=== PATIENT | female | born 1975 | race Caucasian/White ===

== ENCOUNTER 2018-04-14 01:07 | Emergency (ER) | payer SELFPAY ==
[2018-04-14] MEDS ORDERED: IPRATROPIUM/ALBUTEROL 0.5-2.5 MG/3 ML AMPUL NEB ONE (01:37)
[2018-04-14 02:09] LABS: HEMATOCRIT 27.6 % (36.0-47.0); HEMOGLOBIN 8.2 g/dL (12.0-15.5); MEAN CORPUSCULAR HEMOGLOBIN 20.1 pg (27.0-33.4); MEAN CORPUSCULAR HGB CONC 29.7 g/dL (32.0-36.0); MEAN CORPUSCULAR VOLUME 68 fl (80-97); PLATELET COUNT 445 10^3/uL (150-450); RED BLOOD COUNT 4.07 10^6/uL (3.72-5.28)
[2018-04-14 02:21] LABS: INTERNATIONAL RATION (INR) 1.06; PROTHROMBIN TIME 14.3 SEC (11.4-15.4)
--- NOTE | 2018-04-14 02:30 | RADIOLOGY REPORT (SQ) ---
Clinical History : wheezing , Exam : Portable AP view of the chest 04/14/2018 1:36 AM CDT Comparisons : none Findings : The lung volumes are increased with flattening of the diaphragms. There is otherwise no focal consolidation or pleural effusion. The heart is normal in size. The mediastinal contours are distorted by patient rotation to the left . The thoracic spine is age appropriate. There is a chronic appearing left shoulder dislocation.. Limited evaluation of the upper abdomen demonstrates no gross abnormalities. Impression: 1. Increased lung volumes without overt edema or consolidation, may represent obstructive airways disease. 2. Chronic appearing left shoulder dislocation.
[2018-04-14 02:35] LABS: ALANINE AMINOTRANSFERASE 18 U/L (9-52); ALBUMIN 3.3 g/dL (3.5-5.0); ALKALINE PHOSPHATASE 101 U/L (38-126); ANION GAP 6 (5-19); ASPARTATE AMINO TRANSFERASE 16 U/L (14-36); BILIRUBIN,DIRECT 0.3 mg/dL (0.0-0.4); BILIRUBIN,TOTAL 0.3 mg/dL (0.2-1.3); BLOOD UREA NITROGEN 12 mg/dL (7-20); CALCIUM 8.9 mg/dL (8.4-10.2); CARBON DIOXIDE 27 mmol/L (22-30); CHLORIDE 111 mmol/L (98-107); GLUCOSE 86 mg/dL (75-110); LIPASE 93.4 U/L (23-300); POTASSIUM 4.4 mmol/L (3.6-5.0); SODIUM 144.3 mmol/L (137-145); TOTAL PROTEIN 7.8 g/dL (6.3-8.2)
[2018-04-14 02:54] LABS: ABSOLUTE MONOCYTES # (MANUAL) 0.1 10^3/uL (0.1-1.4); ABSOLUTE NEUTROPHILS# (MANUAL) 4.5 10^3/uL (1.7-8.2); BAND NEUTROPHILS % (MANUAL) 1 % (3-5); BASOPHILS % (MANUAL) 0 % (0-2); EOSINOPHILS % (MANUAL) 6 % (0-6); LYMPHOCYTES % (MANUAL) 17 % (13-45); MONOCYTES % (MANUAL) 2 % (3-13); SEGMENTED NEUTROPHILS % (MAN) 74 % (42-78); TOTAL CELLS COUNTED 100
[2018-04-14 02:55] LABS: ANISOCYTOSIS 2+
[2018-04-14 02:56] LABS: HYPOCHROMASIA 1+; OVALOCYTES 1+; PLATELET COMMENT ADEQUATE; POLYCHROMASIA SLIGHT; TEAR DROP CELLS SLIGHT
[2018-04-14] MEDS ORDERED: ALBUTEROL SULFATE HFA (90 MCG/PUFF) 8 GM MDI (1 MDI/ER DISP) IH ONE (03:30)
[2018-04-14] MEDS ORDERED: WARFARIN SODIUM 5 MG TABLET PO ONE (03:30)
[2018-04-14] MEDS ORDERED: ENOXAPARIN SODIUM INJ 100 MG/1 ML DISP.SYRIN SUBCUT ONE (03:32)
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
[2018-04-14 04:59] VITALS: BP 148/88
== END 2018-04-14 04:53 | disposition home or self-care (01) ==
LOC: ER 01:07
DX: J45.20 Mild intermittent asthma, uncomplicated (principal); S81.812A Laceration without foreign body, left lower leg, initial encounter; R10.11 Right upper quadrant pain; X58.XXXA Exposure to other specified factors, initial encounter; Y92.003 Bedroom of unspecified non-institutional (private) residence as the place of occurrence of the external cause; Z86.718 Personal history of other venous thrombosis and embolism; F17.200 Nicotine dependence, unspecified, uncomplicated; I10 Essential (primary) hypertension
CPT/HCPCS: 99284; 36415; 83690; 85025; 85610; 80053; 71045; J1650; J3490; J7620

== ENCOUNTER 2018-04-14 05:19 | Emergency (ER) | payer SELFPAY ==
[2018-04-14 05:31] VITALS: BP 161/96
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
== END 2018-04-14 07:15 | disposition home or self-care (01) ==
LOC: ER 05:19
DX: Z76.5 Malingerer [conscious simulation] (principal); M79.89 Other specified soft tissue disorders; I10 Essential (primary) hypertension; X37.0XXA Hurricane, initial encounter
CPT/HCPCS: 99283

== ENCOUNTER 2018-04-14 21:52 | Emergency (ER) | payer SELFPAY ==
[2018-04-15] MEDS ORDERED: DOXYCYCLINE HYCLATE 100 MG TABLET PO ONE (01:19)
[2018-04-15] MEDS ORDERED: GABAPENTIN 300 MG CAPSULE PO ONE (01:31)
[2018-04-15] MEDS ORDERED: LEVETIRACETAM 500 MG TABLET PO ONE (01:31)
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
[2018-04-15] MEDS ORDERED: WARFARIN SODIUM 5 MG TABLET PO ONE (11:14)
[2018-04-15] MEDS ORDERED: ALBUTEROL SULFATE 0.083% NEB 2.5 MG/3 ML AMPUL NEB PRN (11:25)
[2018-04-15] MEDS ORDERED: VENLAFAXINE HCL 75 MG TABLET PO SCH (11:30)
[2018-04-15] MEDS ORDERED: HYDROXYCHLOROQUINE SULFATE 200 MG TABLET PO SCH ×2 (11:30→13:00)
[2018-04-15] MEDS ORDERED: LEVETIRACETAM 500 MG TABLET PO SCH (11:30)
[2018-04-15] MEDS ORDERED: GABAPENTIN 300 MG CAPSULE PO SCH (11:30)
[2018-04-15] MEDS ORDERED: PREDNISONE 10 MG TABLET PO SCH (11:30)
[2018-04-15 16:14] VITALS: BP 157/98
[2018-04-15] MEDS ORDERED: ALBUTEROL SULFATE HFA (90 MCG/PUFF) 8 GM MDI (1 MDI/ER DISP) IH ONE (16:16)
[2018-04-15] MEDS ORDERED: LANSOPRAZOLE 30 MG TAB.RAP.DR PO SCH (17:00)
== END 2018-04-15 16:55 | disposition home or self-care (01) ==
LOC: ER 21:52
DX: S81.812D Laceration without foreign body, left lower leg, subsequent encounter (principal); M79.89 Other specified soft tissue disorders; X37.0XXD Hurricane, subsequent encounter; I10 Essential (primary) hypertension; Z86.718 Personal history of other venous thrombosis and embolism; Z79.01 Long term (current) use of anticoagulants
CPT/HCPCS: 94640; 99283; J3490 ×2; J7512

== ENCOUNTER 2018-04-15 19:13 | Emergency (ER) | payer SELFPAY ==
[2018-04-15 19:38] VITALS: BP 163/98
== END 2018-04-15 20:20 | disposition left against medical advice (07) ==
LOC: ER 19:13
DX: Z53.21 Procedure and treatment not carried out due to patient leaving prior to being seen by health care provider (principal)

== ENCOUNTER 2018-06-26 19:58 | Inpatient (IN) | payer MEDICAID ==
--- NOTE | 2018-06-26 21:07 | ER Document Report ---
ED General - General Chief Complaint: Abdominal Pain Stated Complaint: WOUND CHECK Time Seen by Provider: 06/26/18 20:26 Mode of Arrival: Medic Information source: Patient TRAVEL OUTSIDE OF THE [place] IN LAST 30 DAYS: No - HPI Patient complains to provider of: Leg pain Onset: Other - This is a 42-year-old wheelchair dependent post CVA as well as lupus patient presents for evaluation of pain and swelling as well as fevers in the left lower extremity. She notes that she had been treated for cellulitis in her left lower extremity previously with doxycycline and it had totally resolved 1 month prior but over the last 4 days she has had worsening fevers, chills, and drainage from the leg. Because of the continued pain and worsening fevers she called for help today. Nothing is seem to make it any better, nothing is seem to make it any worse. - Related Data Allergies/Adverse Reactions: No Known Allergies Allergy (Verified 04/14/18 22:08) Past Medical History - General Information source: Patient - Social History Smoking Status: Former Smoker Family History: None Patient has suicidal ideation: No Patient has homicidal ideation: No - Past Medical History Cardiac Medical History: Reports: Hx Hypertension Pulmonary Medical History: Reports: Hx Asthma Renal/ Medical History: Denies: Hx Peritoneal Dialysis Psychiatric Medical History: Reports: Hx Depression - Immunizations Immunizations up to date: Yes Hx Diphtheria, Pertussis, Tetanus Vaccination: Yes Review of Systems - Review of Systems -: Yes All other systems reviewed and negative Physical Exam - Vital signs Vitals: Temp Pulse BP Pulse Ox 99.5 F 108 H 138/88 H 98 06/26/18 20:17 06/26/18 20:17 06/26/18 20:17 06/26/18 20:17 - General General appearance: Alert, Anxious In distress: Moderate - HEENT Head: Other - Asymmetric bases left eye closed Eyes: Normal - Respiratory Respiratory status: No respiratory distress Chest status: Nontender Breath sounds: Normal Chest palpation: Normal - Cardiovascular Rhythm: Tachycardia Heart sounds: Normal auscultation Murmur: No - Abdominal Inspection: Normal Tenderness: Nontender - Back Back: Normal - Extremities General upper extremity: Normal inspection, Nontender, Normal color, Normal ROM , Normal temperature General lower extremity: Other - The left lower extremity is markedly erythematous just distal to the knee, there is profound swelling and erythema with multiple blisters and ulcerations the largest of which are approximately 6 cm in diameter. There is no appreciable crepitance there is fluctuance in the base of 2 of the larger ulcerated areas with profound tenderness to palpation - Neurological Neuro grossly intact: No - Baseline stroke deficits in the left side Cognition: Normal Orientation: AAOx4 Dorita Coma Scale Eye Opening: Spontaneous Dorita Coma Scale Verbal: Oriented [place] Coma Scale Motor: Obeys Commands [place] Coma Scale Total: 15 Speech: Normal Motor strength normal: RUE Sensory: Normal - Psychological Associated symptoms: Normal affect, Normal mood Course - Re-evaluation Re-evalutation: 06/26/18 21:24 42-year-old woman with large erythematous left lower extremity multiple ulcerations who is febrile and tachycardic. She is chronically ill woman who previously been treated for cellulitis in the outpatient setting with good response. She does appear to be systemically ill at this time febrile and tachycardic we will administer fluids broad-spectrum antibiotics. We will plan for x-rays lower extremity. We will plan for administration of Tylenol as well for fever. Discussion with the patient agreed that she is probably best served by inpatient management of her developing cellulitis, have contacted on-call hospitalist Dr. Colon who will see and evaluate the patient for admission. She currently does not have an outpatient provider. Do not believe that this time that she has a necrotizing infection which requires urgent or emergent surgical debridement. We will plan for continued monitoring in emergency department so she is appropriate evaluated and admitted by the hospitalist. - Vital Signs Vital signs: Temp Pulse Resp BP Pulse Ox 99.5 F 108 H 138/88 H 98 06/26/18 20:17 06/26/18 20:17 06/26/18 20:17 06/26/18 20:17 - Laboratory Result Diagrams: 06/26/18 21:38 06/26/18 21:38 Laboratory results interpreted by me: 06/26/18 06/26/18 06/26/18 21:38 21:38 22:55 Hgb 8.0 L Hct 27.3 L MCV 67 L MCH 19.8 L MCHC 29.5 L RDW 21.7 H Sodium 146.8 H Chloride 110 H Total Bilirubin 0.1 L AST 12 L Albumin 2.8 L Urine Protein 30 H Urine Blood SMALL H Discharge - Discharge Clinical Impression: Cellulitis Qualifiers: Site of cellulitis: unspecified site Qualified Code(s): L03.90 - Cellulitis, unspecified Leg wound, left Qualifiers: Encounter type: initial encounter Qualified Code(s): S81.802A - Unspecified open wound, left lower leg, initial encounter Condition: Stable Disposition: ADMITTED INPATIENT Admitting Provider: Hospitalist
[2018-06-26] MEDS ORDERED: ACETAMINOPHEN 325 MG TABLET PO ONE (21:08)
[2018-06-26] MEDS ORDERED: NORMAL SALINE 1000 ML 1,000 ML IV ONE (21:08)
[2018-06-26] MEDS ORDERED: PIPERACILLIN/TAZOBACTAM 4.5 GM VIAL IV ONE (21:08)
[2018-06-26] MEDS ORDERED: MORPHINE SULFATE 10 MG/ML INJ IV ONE (21:09)
[2018-06-26 21:54] LABS: ABSOLUTE BASOPHILS # (AUTO) 0.1 10^3/uL (0.0-0.2); ABSOLUTE EOSINOPHILS # (AUTO) 0.3 10^3/uL (0.0-0.6); ABSOLUTE LYMPHOCYTES (AUTO) 1.1 10^3/uL (0.5-4.7); ABSOLUTE MONOCYTES (AUTO) 0.5 10^3/uL (0.1-1.4); ABSOLUTE NEUT (AUTO) 5.5 10^3/uL (1.7-8.2); BASOPHILS % (AUTO) 0.8 % (0-2); EOSINOPHILS % (AUTO) 4.5 % (0-6); HEMATOCRIT 27.3 % (36.0-47.0); LYMPHOCYTES % (AUTO) 15.1 % (13-45); MEAN CORPUSCULAR HEMOGLOBIN 19.8 pg (27.0-33.4); MEAN CORPUSCULAR HGB CONC 29.5 g/dL (32.0-36.0); MEAN CORPUSCULAR VOLUME 67 fl (80-97); MONOCYTES % (AUTO) 6.4 % (3-13); PLATELET COUNT 359 10^3/uL (150-450); RED BLOOD COUNT 4.06 10^6/uL (3.72-5.28); RED CELL DISTRIBUTION WIDTH 21.7 % (11.5-14.0); SEGMENTED NEUTROPHILS % (AUTO) 73.2 % (42-78); TOTAL CELLS COUNTED % (AUTO) 100 %; WHITE BLOOD COUNT 7.5 10^3/uL (4.0-10.5)
[2018-06-26 22:15] LABS: ALANINE AMINOTRANSFERASE 9 U/L (9-52); ALBUMIN 2.8 g/dL (3.5-5.0); ALKALINE PHOSPHATASE 105 U/L (38-126); ANION GAP 10 (5-19); ASPARTATE AMINO TRANSFERASE 12 U/L (14-36); BILIRUBIN,DIRECT 0.1 mg/dL (0.0-0.4); BILIRUBIN,TOTAL 0.1 mg/dL (0.2-1.3); BLOOD UREA NITROGEN 9 mg/dL (7-20); CALCIUM 8.4 mg/dL (8.4-10.2); CARBON DIOXIDE 27 mmol/L (22-30); CHLORIDE 110 mmol/L (98-107); GLUCOSE 96 mg/dL (75-110); POTASSIUM 4.2 mmol/L (3.6-5.0); SODIUM 146.8 mmol/L (137-145); TOTAL PROTEIN 6.9 g/dL (6.3-8.2)
[2018-06-26 22:17] LABS: INTERNATIONAL RATION (INR) 1.05; PROTHROMBIN TIME 14.3 SEC (11.4-15.4)
[2018-06-26 22:28] LABS: VENOUS BLOOD HCO3 25.2 mmol/L (20-32); VENOUS BLOOD PCO2 43.5 mmHg (35-63); VENOUS BLOOD PH 7.38 (7.30-7.42)
--- NOTE | 2018-06-26 22:36 | RADIOLOGY REPORT (SQ) ---
EXAM DESCRIPTION: XR TIBIA FIBULA 2 VIEWS COMPLETED DATE/TME: 06/26/2018 21:09 CLINICAL HISTORY: 42 years, Female, concern for air in tissues COMPARISON: None. NUMBER OF VIEWS: 4 TECHNIQUE: 4 view left tibia fibula LIMITATIONS: None. FINDINGS: Osteopenia. Large area of soft tissue ulceration along the medial aspect of the distal leg. No underlying sinus tract formation or radiographic evidence for acute osteomyelitis. No other areas of soft tissue gas. Diffuse soft tissue swelling. IMPRESSION: Large soft tissue ulceration of the distal leg. Osteopenia. No acute osseous abnormality copyright 2010 [employer]- All Rights Reserved
[2018-06-26 23:16] LABS: APPEARANCE,URINE SLIGHTLY-CLOUDY; BILIRUBIN,URINE NEGATIVE (NEGATIVE); COLOR,URINE YELLOW; GLUCOSE, URINE NEGATIVE (NEGATIVE); KETONES,URINE NEGATIVE (NEGATIVE); LEUKOCYTE ESTERASE,URINE NEGATIVE (NEGATIVE); NITRITE,URINE NEGATIVE (NEGATIVE); PROTEIN,URINE 30 mg/dL (NEGATIVE); URINE SPECIFIC GRAVITY 1.026; UROBILINOGEN,URINE NEGATIVE mg/dL (<2.0)
--- NOTE | 2018-06-26 23:20 | RADIOLOGY REPORT (SQ) ---
EXAM DESCRIPTION: XR CHEST 1 VIEW COMPLETED DATE/TME: 06/26/2018 22:50 CLINICAL HISTORY: 42 years, Female, cough COMPARISON: Prior chest x-ray 04/14/2018.. NUMBER OF VIEWS: 1 TECHNIQUE: Frontal view the chest LIMITATIONS: None. FINDINGS: Heart size is normal. Mild atheromatous change thoracic aorta. Osteopenia. Deformity of the left shoulder, likely sequelae of old trauma with heterotopic bone formation and degenerative change. IMPRESSION: No acute cardiopulmonary process. copyright 2010 [employer]- All Rights Reserved
[2018-06-26] MEDS ORDERED: PROMETHAZINE HCL INJ 25 MG/1 ML VIAL IV PRN (23:31)
[2018-06-26] MEDS ORDERED: MAG HYDROX/AL HYDROX/SIMETH SUSP 30 ML UDCUP PO PRN (23:31)
[2018-06-26] MEDS ORDERED: VANCOMYCIN HCL 0 MG in DEXTROSE 5%-WATER 250 ML IV NR (23:45)
[2018-06-27] MEDS ORDERED: AMPICILLIN SOD/SULBACTAM 3 GM VIAL ONE ×2 (00:36→01:45)
[2018-06-27] MEDS: AMPICILLIN SODIUM/SULBACTAM NA 3 GM in NORMAL SALINE 100 ML IV SCH ×5 (00:56→23:08)
[2018-06-27] MEDS ORDERED: VANCOMYCIN HCL INJ 1000 MG VIAL IV PRN (01:03)
[2018-06-27] MEDS: OXYCODONE-ACETAMINOPHEN 5-325 MG TABLET PO PRN ×3 (01:27→19:36)
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
[2018-06-27] MEDS ORDERED: VANCOMYCIN HCL INJ 1000 MG VIAL ONE (01:45)
[2018-06-27] MEDS: ACETAMINOPHEN 325 MG TABLET PO PRN (02:23)
[2018-06-27] MEDS ORDERED: VANCOMYCIN HCL 1,750 MG in DEXTROSE 5%-WATER 500 ML IV ONE (02:30)
[2018-06-27] MEDS: KETOROLAC TROMETHAMINE INJ/PF 30 MG/1 ML SDV IV PRN ×2 (04:22→17:57)
[2018-06-27 04:45] LABS: ABSOLUTE BASOPHILS # (AUTO) 0.1 10^3/uL (0.0-0.2); ABSOLUTE EOSINOPHILS # (AUTO) 0.4 10^3/uL (0.0-0.6); ABSOLUTE LYMPHOCYTES (AUTO) 1.3 10^3/uL (0.5-4.7); ABSOLUTE MONOCYTES (AUTO) 0.5 10^3/uL (0.1-1.4); ABSOLUTE NEUT (AUTO) 3.5 10^3/uL (1.7-8.2); EOSINOPHILS % (AUTO) 6.8 % (0-6); HEMATOCRIT 23.2 % (36.0-47.0); LYMPHOCYTES % (AUTO) 23.1 % (13-45); MEAN CORPUSCULAR HEMOGLOBIN 19.7 pg (27.0-33.4); MEAN CORPUSCULAR HGB CONC 29.6 g/dL (32.0-36.0); MEAN CORPUSCULAR VOLUME 67 fl (80-97); MONOCYTES % (AUTO) 8.3 % (3-13); PLATELET COUNT 296 10^3/uL (150-450); RED BLOOD COUNT 3.48 10^6/uL (3.72-5.28); RED CELL DISTRIBUTION WIDTH 22.1 % (11.5-14.0); SEGMENTED NEUTROPHILS % (AUTO) 60.8 % (42-78); TOTAL CELLS COUNTED % (AUTO) 100 %; WHITE BLOOD COUNT 5.7 10^3/uL (4.0-10.5)
[2018-06-27 04:56] LABS: HEMOGLOBIN 6.9 g/dL (12.0-15.5)
[2018-06-27 05:09] LABS: URINE BARBITURATES SCREEN NEGATIVE; URINE BENZODIAZEPINES SCREEN NEGATIVE; URINE COCAINE SCREEN NEGATIVE; URINE MARIJUANA (THC) SCREEN NEGATIVE; URINE METHADONE SCREEN NEGATIVE; URINE PHENCYCLIDINE SCREEN NEGATIVE
[2018-06-27 05:22] LABS: ANION GAP 7 (5-19); BLOOD UREA NITROGEN 10 mg/dL (7-20); CALCIUM 7.9 mg/dL (8.4-10.2); CARBON DIOXIDE 24 mmol/L (22-30); CHLORIDE 114 mmol/L (98-107); GLUCOSE 91 mg/dL (75-110); POTASSIUM 4.3 mmol/L (3.6-5.0); SODIUM 145.1 mmol/L (137-145)
[2018-06-27 05:22] LABS: HEMATOCRIT 22.3 % (36.0-47.0); MEAN CORPUSCULAR HEMOGLOBIN 19.9 pg (27.0-33.4); MEAN CORPUSCULAR HGB CONC 30.2 g/dL (32.0-36.0); MEAN CORPUSCULAR VOLUME 66 fl (80-97); PLATELET COUNT 294 10^3/uL (150-450); RED BLOOD COUNT 3.37 10^6/uL (3.72-5.28); RED CELL DISTRIBUTION WIDTH 21.9 % (11.5-14.0); WHITE BLOOD COUNT 4.8 10^3/uL (4.0-10.5)
[2018-06-27 05:24] LABS: HEMOGLOBIN 6.7 g/dL (12.0-15.5)
[2018-06-27] MEDS ORDERED: HEPARIN SOD (PORCINE) 5,000 UNIT/ML 1 ML SYRINGE SUBCUT SCH (06:00)
[2018-06-27 07:21] LABS: URINE AMPHETAMINES SCREEN NEGATIVE
--- NOTE | 2018-06-27 07:41 | EKG REPORT ---
SEVERITY:- BORDERLINE ECG - SINUS TACHYCARDIA NONSPECIFIC ST-T CHANGES ANTERIOR LEADS : Confirmed by: Victor Manuel Joya MD 27-Jun-2018 07:40:32
[2018-06-27] MEDS: VANCOMYCIN HCL 1,000 MG in DEXTROSE 5%-WATER 250 ML IV SCH ×2 (10:05→20:16)
--- NOTE | 2018-06-27 12:16 | RADIOLOGY REPORT (SQ) ---
EXAM DESCRIPTION: VENOUS UNILATERAL LOWER COMPLETED DATE/TIME: 06/27/2018 11:58 am REASON FOR STUDY: LLE edema COMPARISON: None. TECHNIQUE: Dynamic and static armendariz scale and color images acquired of the left leg venous system. Se lected spectral images acquired with additional compression and augmentation maneuvers. The contralat eral common femoral vein and saphenofemoral junction were also imaged. Images stored on PACS. LIMITATIONS: None. FINDINGS: COMMON FEMORAL: Partially occlusive thrombus. FEMORAL: Occlusive thrombus. POPLITEAL: Normal compression, augmentation. No visualized echogenic material on armendariz scale. No defec ts on color images. CALF VESSELS: Normal compression, augmentation. No visualized echogenic material on armendariz scale. No de fects on color images. GSV and SSV: Normal compression, augmentation. No visualized echogenic material on armendariz scale. No def ects on color images. ANY DEEP VENOUS INSUFFICIENCY: No. ANY EVIDENCE OF POPLITEAL CYST: No. OTHER: No other significant finding. CONTRALATERAL COMMON FEMORAL VEIN AND SAPHENOFEMORAL JUNCTION: Normal phasicity, compression and augmentation. No visualized echogenic material on armendariz scale. No de fects on color images. IMPRESSION: DEEP VENOUS THROMBOSIS INVOLVING THE COMMON FEMORAL VEIN AND FEMORAL VEIN. COMMENT: Preliminary report was called by the technologist to the referring clinician's office at t he time of patient visit. TECHNICAL DOCUMENTATION: JOB ID: [id number] [employer]- All Rights Reserved Reading location - IP/workstation name: [facility]-[id number]
[2018-06-27] MEDS: ENOXAPARIN SODIUM INJ 100 MG/1 ML DISP.SYRIN SUBCUT SCH ×2 (12:31→21:37)
[2018-06-27] MEDS ORDERED: ACETAMINOPHEN 325 MG TABLET PO PRN (16:57)
[2018-06-27] MEDS ORDERED: NORMAL SALINE 250 ML IV PRN ×2 (16:57)
[2018-06-27] MEDS ORDERED: DIPHENHYDRAMINE HCL 25 MG CAPSULE PO PRN (16:57)
--- NOTE | 2018-06-27 19:42 | PROGRESS NOTE E ---
Progress Note NAME: GREG BOATENG : 1975 AGE: 42Y DATE: 06/27/2018 ROOM: 533 SUBJECTIVE: The patient was seen earlier today on rounds. The patient herself denies any nausea, vomiting, diarrhea. No shortness of breath, dizziness, chest pain. The patient states that the pain in her extremity has returned. I was notified that the patient's venous Doppler was positive. The patient denies any shortness of breath, dizziness, or chest pain. The patient has been afebrile, her blood pressure has been in a good range, and the patient does not voice any other concerns at this time. REVIEW OF SYSTEMS: The rest of the review of systems is negative. MEDICATIONS: Medications have been reviewed. OBJECTIVE: GENERAL: The patient is a 42-year-old female who is awake, alert, and oriented to person, place, time, and situation. She is verbal, conversational, does not appear to be in any acute distress. VITAL SIGNS: As follows: Temperature is 98.2, pulse 92, respirations 20, blood pressure 150/90, oxygen saturation is 98% on room air. SKIN: Warm and dry. No rash, not diaphoretic. HEENT: Pupils equal, round, and reactive to light and accommodation. Conjunctivae pink. No evidence of JVP. CARDIOVASCULAR: Heart is regular. There is no murmur or rub. CHEST: Clear, symmetrical, unlabored. ABDOMEN: Soft, nontender, nondistended. BACK: No CVA tenderness or sacral edema. EXTREMITIES: No clubbing or cyanosis. The patient's left lower extremity is very edematous with ulcerations that are open to air at this point. DIAGNOSTICS: Lab values are as follows. Hematology obtained on 06/27/2018: WBCs are 4.8, hemoglobin is 6.7, hematocrit is 22.3, platelet count is 294,000. Chemistry obtained on 06/27/2018: Sodium is 145, potassium is 4.3, chloride is 114, carbon dioxide 24, BUN 10, creatinine 0.64, glucose 91, calcium is 7.9. IMPRESSION AND PLAN: 1. LEFT LOWER EXTREMITY DVT. Will place the patient on Lovenox and follow. 2. LEFT LOWER EXTREMITY WOUNDS. The patient is to be seen and evaluated by Surgery. 3. CELLULITIS OF THE LEFT LOWER EXTREMITY. Continue antibiotic coverage. 4. SYSTEMIC LUPUS ERYTHEMATOSUS. The patient is on chronic prednisone. 5. CEREBROVASCULAR DISEASE. The patient does have a history of CVA. Will follow. 6. ANEMIA. Will type and cross and transfuse yet another unit of packed red blood cells given the patient only had mild improvement of her hemoglobin. DISPOSITION: THE PATIENT IS A FULL CODE. Pending the patient's symptomatology and diagnostic findings, will re-evaluate in the a.m. Time spent on this followup, including assessment/plan, physical examination, patient education, review of records, is 60 minutes. DICTATING PHYSICIAN: YOSEPH DARBY NP [id number] PHY#: [id number] ID: [id number] JOB#: [id number] ACCT: [id number] cc: >
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
[2018-06-28] MEDS: VANCOMYCIN HCL 1,000 MG in DEXTROSE 5%-WATER 250 ML IV SCH ×2 (02:26→10:22)
[2018-06-28 04:54] LABS: HEMATOCRIT 27.7 % (36.0-47.0); HEMOGLOBIN 8.6 g/dL (12.0-15.5); MEAN CORPUSCULAR HEMOGLOBIN 21.2 pg (27.0-33.4); MEAN CORPUSCULAR HGB CONC 30.9 g/dL (32.0-36.0); MEAN CORPUSCULAR VOLUME 69 fl (80-97); PLATELET COUNT 316 10^3/uL (150-450); RED BLOOD COUNT 4.04 10^6/uL (3.72-5.28); RED CELL DISTRIBUTION WIDTH 23.3 % (11.5-14.0); WHITE BLOOD COUNT 4.5 10^3/uL (4.0-10.5)
[2018-06-28 05:12] LABS: ANION GAP 9 (5-19); BLOOD UREA NITROGEN 13 mg/dL (7-20); CALCIUM 7.7 mg/dL (8.4-10.2); CARBON DIOXIDE 24 mmol/L (22-30); CHLORIDE 111 mmol/L (98-107); GLUCOSE 93 mg/dL (75-110); POTASSIUM 4.5 mmol/L (3.6-5.0)
[2018-06-28] MEDS: AMPICILLIN SODIUM/SULBACTAM NA 3 GM in NORMAL SALINE 100 ML IV SCH ×3 (05:55→17:54)
[2018-06-28] MEDS: OXYCODONE-ACETAMINOPHEN 5-325 MG TABLET PO PRN ×2 (08:04→21:10)
[2018-06-28] MEDS: ENOXAPARIN SODIUM INJ 100 MG/1 ML DISP.SYRIN SUBCUT SCH ×2 (10:22→21:09)
[2018-06-28 11:56] LABS: VANCOMYCIN,TROUGH 24.1 ug/mL (5.0-20.0)
[2018-06-28] MEDS: ACETAMINOPHEN 325 MG TABLET PO PRN (13:28)
--- NOTE | 2018-06-28 16:11 | PROGRESS NOTE E ---
Progress Note NAME: GREG BOATENG : 1975 AGE: 42Y DATE: 06/28/2018 ROOM: 533 SUBJECTIVE: The patient was seen earlier today on rounds. The patient stated that she was hungry. Otherwise, her pain appeared to be well controlled. The patient denied any nausea, vomiting. No diarrhea, shortness of breath, dizziness, or chest pain. The patient has been afebrile. Her blood pressures have been in a good range and the patient does not voice any specific concerns at this time. Apparently, the patient's sister was somewhat disruptive yesterday evening and was demanding to receive a phone call. I made 2 separate attempts to contact her; however, her voice mail is not set up on her phone. Therefore, I was unable to leave a message. REVIEW OF SYSTEMS: The rest of the review of systems is negative. MEDICATIONS: Medications have been reviewed. OBJECTIVE: GENERAL: The patient is a 42-year-old female who is awake and alert. She is oriented to person, place, time, and situation. She is verbal and conversational. Does not appear to be distressed. VITAL SIGNS: Temperature 98.6, pulse 100, respirations 18, blood pressure 158/101, oxygen saturation 98% on room air. SKIN: Warm, dry. She is not diaphoretic. HEENT: The patient's right pupil is reactive. No evidence of JVP. CVS: Heart is in sinus rhythm, no rub. CHEST: Clear, symmetrical, unlabored. ABDOMEN: Nondistended. EXTREMITIES: The patient's left lower extremity redness has receded, but still prominent post debridement. PSYCHIATRIC: Appropriate affect, pleasant mood. DIAGNOSTICS/LAB VALUES: Hematology obtained on 06/28/2018: WBC 4.5, hemoglobin 7.6, hematocrit 27.7, platelet count 316,000. Chemistry obtained on 06/28/2018: Sodium 144, potassium 4.5, chloride 111, carbon dioxide 24, BUN 13, creatinine 0.57. Glucose 93. Calcium 7.7. Magnesium 1.9. ASSESSMENT AND PLAN: 1. LEFT LOWER EXTREMITY DEEP VENOUS THROMBOSIS. This has been a recurrent issue for the patient. I have placed the patient on Lovenox and will follow. 2. LEFT LOWER EXTREMITY WOUND. The patient was seen and evaluated by Surgery. She is status post debridement. Cultures reveal gram-negative rods. 3. CELLULITIS OF THE LEFT LOWER EXTREMITY. Have discontinued vancomycin. Will continue Unasyn coverage. 4. SYSTEMIC LUPUS ERYTHEMATOSUS. Will continue chronic prednisone. 5. CEREBROVASCULAR DISEASE. Continue home medications. 6. ANEMIA MOST LIKELY OF UNDERLYING CHRONIC DISEASE. The patient has been transfused. Will monitor hemoglobin in the a.m. DISPOSITION: The patient is a full code. Depending on the patient's symptomatology and diagnostic findings, will reevaluate in the a.m. Time spent on this followup including assessment, plan, physical examination, patient education and review of records is 25 minutes. DICTATING PHYSICIAN: YOSEPH DARBY NP [id number] PHY#: [id number] ID: [id number] JOB#: [id number] ACCT: [id number] cc: >
[2018-06-28] MEDS: PROMETHAZINE HCL 25 MG TABLET PO PRN (21:11)
[2018-06-28] MEDS: TEMAZEPAM 15 MG CAPSULE PO PRN (21:11)
[2018-06-29] MEDS: AMPICILLIN SODIUM/SULBACTAM NA 3 GM in NORMAL SALINE 100 ML IV SCH ×2 (00:38→05:56)
[2018-06-29] MEDS: OXYCODONE-ACETAMINOPHEN 5-325 MG TABLET PO PRN ×3 (05:56→22:02)
--- NOTE | 2018-06-29 11:12 | PDOC CONSULTATION ---
Consultation Consult Date: 06/29/18 Attending physician:: VIK HODGES Consult reason:: Recurrent DVT in the setting of lupus History of Present Illness Admission Date/PCP: 06/26/18 23:51 Patient complains of: DVT History of Present Illness: GREG BOATENG is a 42 year old female with known history of recurrent DVT, she does have severe lupus, also has anemia. On this admission she was found to be both anemic as well as have a new left lower extremity DVT. She was previously on both warfarin as well as Lovenox in the past, unfortunately is uninsured so she has been taken off those medications in the past. She also has anemia, but has been transfused so we cannot do iron studies on this admission, she has never had iron studies done previously. Her MCV is low so it is possible that she does have some iron deficiency anemia but because of the lupus she most likely has anemia of inflammation. This would be her third DVT in the left lower extremity. Past Medical History Cardiac Medical History: Reports: DVT, Hypertension Pulmonary Medical History: Reports: Asthma Neurological Medical History: Reports: Ischemic CVA, Other - Left upper and lower extremity weakness Psychiatric Medical History: Reports: Depression Past Surgical History Past Surgical History: Reports: Appendectomy, Other - Left eye enucleation Social History Smoking Status: Former Smoker - Tells me that quitting smoking 1 month ago Frequency of Alcohol Use: None Hx Recreational Drug Use: No Drugs: None Hx Prescription Drug Abuse: No - Advance Directive Resuscitation Status: Full Code Family History Family History: None Parental Family History Reviewed: Yes Children Family History Reviewed: Yes Sibling(s) Family History Reviewed.: Yes Medication/Allergy Home Medications: No Home Medications 06/27/18 Allergies/Adverse Reactions: No Known Allergies Allergy (Verified 04/14/18 22:08) Review of Systems Constitutional: ABSENT: chills, fever(s), headache(s), weight gain, weight loss Eyes: ABSENT: visual disturbances Ears: ABSENT: hearing changes Cardiovascular: ABSENT: chest pain, dyspnea on exertion, edema, orthropnea, palpitations Respiratory: ABSENT: cough, hemoptysis Gastrointestinal: ABSENT: abdominal pain, constipation, diarrhea, hematemesis, hematochezia, nausea, vomiting Genitourinary: ABSENT: dysuria, hematuria Musculoskeletal: ABSENT: joint swelling Integumentary: ABSENT: rash, wounds Neurological: ABSENT: abnormal gait, abnormal speech, confusion, dizziness, focal weakness, syncope Psychiatric: ABSENT: anxiety, depression, homidical ideation, suicidal ideation Endocrine: ABSENT: cold intolerance, heat intolerance, polydipsia, polyuria Hematologic/Lymphatic: ABSENT: easy bleeding, easy bruising Physical Exam Vital Signs: Temp Pulse Resp BP Pulse Ox 97.8 F 98 18 158/102 H 99 06/28/18 23:16 06/28/18 23:16 06/28/18 23:16 06/28/18 23:16 06/28/18 23:16 Intake & Output 06/28/18 06/29/18 06/30/18 06:59 06:59 06:59 Intake Total 2614 1414 100 Output Total 2 Balance 2614 1412 100 Weight 88 kg 93.4 kg General appearance: PRESENT: no acute distress, well-developed, well-nourished Head exam: PRESENT: atraumatic, normocephalic Eye exam: PRESENT: conjunctiva pink, EOMI, PERRLA. ABSENT: scleral icterus Ear exam: PRESENT: normal external ear exam Mouth exam: PRESENT: moist, tongue midline Neck exam: ABSENT: carotid bruit, JVD, lymphadenopathy, thyromegaly Respiratory exam: PRESENT: clear to auscultation [place]. ABSENT: rales, rhonchi, wheezes Cardiovascular exam: PRESENT: RRR. ABSENT: diastolic murmur, rubs, systolic murmur Pulses: PRESENT: normal dorsalis pedis pul Vascular exam: PRESENT: normal capillary refill GI/Abdominal exam: PRESENT: normal bowel sounds, soft. ABSENT: distended, guarding, mass, organolmegaly, rebound, tenderness Rectal exam: PRESENT: deferred Extremities exam: PRESENT: full ROM. ABSENT: calf tenderness, clubbing, pedal edema Neurological exam: PRESENT: alert, awake, oriented to person, oriented to place , oriented to time, oriented to situation, CN II-XII grossly intact. ABSENT: motor sensory deficit Psychiatric exam: PRESENT: appropriate affect, normal mood. ABSENT: homicidal ideation, suicidal ideation Skin exam: PRESENT: dry, intact, warm. ABSENT: cyanosis, rash Results Laboratory Results: 06/28/18 03:45 06/28/18 03:45 Impressions: Tibia/Fibula X-Ray 06/26/18 21:09 IMPRESSION: Large soft tissue ulceration of the distal leg. Osteopenia. No acute osseous abnormality copyright 2010 [employer]- All Rights Reserved Chest X-Ray 06/26/18 22:50 IMPRESSION: No acute cardiopulmonary process. copyright 2010 [employer]- All Rights Reserved Venous Doppler Study 06/27/18 00:00 IMPRESSION: DEEP VENOUS THROMBOSIS INVOLVING THE COMMON FEMORAL VEIN AND FEMORAL VEIN. Assessment & Plan - Diagnosis (1) Left femoral vein DVT Qualifiers: Chronicity: acute Qualified Code(s): I82.412 - Acute embolism and thrombosis of left femoral vein Is this a current diagnosis for this admission?: Yes Plan: Left lower extremity DVT, recurrent, she needs lifelong anticoagulation. She has no insurance so she must be on 1 of the newer direct oral anticoagulants which do have good programs for patients to get free drug. We also have samples in our office. I would use Xarelto 15 mg twice daily for 21 days then 20 mg daily thereafter. Unfortunately her hemoglobin had dropped but I looked back at her labs from [place] [facility] and she had remained in the 8 range so a drop from 8-6.9 is not that severe. But it would be reasonable to do stool guaiac to make sure that there is no bleeding ongoing at this point. (2) Anemia, chronic disease Is this a current diagnosis for this admission?: Yes Plan: Probably anemia of chronic disease from lupus. Patient was transfused, and seems to be at baseline now. Would recommend stool guaiac to ensure that there is no positivity. If there is positive stool guaiac then she may benefit from endoscopy. - Time Time Spent: Greater than 70 Minutes - Inpatient Certification Based on my medical assessment, after consideration of the patient's comorbidities, presenting symptoms, or acuity I expect that the services needed warrant INPATIENT care.: Yes I certify that my determination is in accordance with my understanding of Medicare's requirements for reasonable and necessary INPATIENT services [42 CFR 412.3e].: Yes Medical Necessity: Risk of Complication if Not Cared For in Hospital
[2018-06-29] MEDS ORDERED: HYDROXYZINE HCL 10 MG TABLET PO ONE (12:00)
[2018-06-29] MEDS: ENOXAPARIN SODIUM INJ 100 MG/1 ML DISP.SYRIN SUBCUT SCH ×2 (12:28→22:03)
[2018-06-29] MEDS: CEFTAZIDIME PENTAHYDRATE 2 GM in DEXTROSE 5%-WATER 100 ML IV SCH ×2 (16:09→22:02)
--- NOTE | 2018-06-29 17:07 | PROGRESS NOTE E ---
Progress Note NAME: GREG BOATENG : 1975 AGE: 42Y DATE: 06/29/2018 ROOM: 533 SUBJECTIVE: The patient is lying in bed. She states that she is itching this morning. She describes herself intermittently to have itching fits, which she attributes to her lupus. The patient denies any nausea, vomiting, diarrhea. No shortness of breath, dizziness, chest pain. No fevers or chills. The patient has been afebrile, blood pressure has been in the a good range, and the patient did not voice any other concerns at this time. BRIEF HISTORY: The patient is a 42-year-old female with a past medical history of lupus and recent CVA about a month ago, resulting in left hemiparesis. The patient presented to the emergency department due to left lower extremity ulcerations. The patient appeared to have a significantly involved area of cellulitis of that leg as well. The patient was admitted. Dopplers were obtained and it appears the patient does have a reoccurring DVT of that left lower extremity and the patient has been covered with Lovenox. The patient has been receiving Unasyn as antibiotic coverage and has had significant improvement of symptoms. However, the patient's Gram-stain has returned pseudomonas, therefore, we will change the patient's coverage to Fortaz. The patient did have bedside debridement with surgery on 06/27/2018 and has been having wet to dry dressings and will give the patient Atarax for her itching and no other concerns are voiced at this time. REVIEW OF SYSTEMS: Rest of the review of systems negative. MEDICATIONS: Have been reviewed. OBJECTIVE: GENERAL: The patient is a 42-year-old female who is awake, alert, and oriented to person, time, place, situation. She is verbal, conversational. She does not appear to be in any acute distress. VITAL SIGNS: Temperature is 97.8, pulse 98, respirations 18, blood pressure is 158/102, oxygen saturation is 99% on room air. SKIN: Warm and dry. No rash. She is not diaphoretic. HEENT: There is no evidence of JVP. CARDIOVASCULAR: Heart is regular, no rub. CHEST: Clear, symmetrical, unlabored. ABDOMEN: Soft, nontender. EXTREMITIES: No clubbing, cyanosis. The patient's left lower extremity does have some chronic edema, redness has receded nicely though. Dressings in place. PSYCHIATRIC: Appropriate affect, pleasant mood. DIAGNOSTICS: Lab values are as follows - Hematology obtained on 06/28/2018; WBC is 4.5, hemoglobin 9.6, hematocrit is 27.7, platelet count is 316,000. Chemistry obtained on 06/28/2018; sodium is 144, potassium 4.5, chloride is 111, carbon dioxide 24, BUN 13, creatinine is 0.57, glucose 93, calcium 7.7, magnesium is 1.9. IMPRESSION AND PLAN: 1. LEFT LOWER EXTREMITY DVT. This has been a reoccurring issue for the patient. She is currently on Lovenox coverage. I am going to discuss this with hematology today to see what program is available for the patient for her chronic anticoagulation given her uninsured status. 2. LEFT LOWER EXTREMITY WOUND. The patient has been seen, evaluated, and debrided at the bedside by surgery. Her cultures reveal pseudomonas. Will transition her antibiotic coverage. 3. CELLULITIS OF THE LEFT LOWER EXTREMITY. Discontinue vancomycin in spite of coverage with Unasyn she is much improved. 4. SYSTEMIC LUPUS ERYTHEMATOSUS. Continue chronic prednisone. 5. CEREBROVASCULAR DISEASE. Continue the patient's home medication. 6. ANEMIA, MOST LIKELY OF UNDERLYING CHRONIC DISEASE. Will attempt to get records from [facility]. The patient has been transfused. Do appreciate hematology's help with this. CODE STATUS: The patient is a full code. DISPOSITION: Depending on the patient's symptomatology and diagnostic findings will reevaluate in the a.m. TIME SPENT: On this follow up, including assessment and plan, physical examination, patient education, specialty collaboration, review of records is 35 minutes. DICTATING PHYSICIAN: YOSEPH DARBY NP [id number] PHY#: [id number] ID: [id number] JOB#: [id number] ACCT: [id number] cc: >
[2018-06-29] MEDS ORDERED: BISACODYL 5 MG TABEC PO PRN (20:42)
[2018-06-29] MEDS: IPRATROPIUM/ALBUTEROL 0.5-2.5 MG/3 ML AMPUL NEB PRN (23:00)
[2018-06-30] MEDS: KETOROLAC TROMETHAMINE INJ/PF 30 MG/1 ML SDV IV PRN (00:53)
[2018-06-30] MEDS: TEMAZEPAM 15 MG CAPSULE PO PRN ×2 (00:53→21:20)
[2018-06-30] MEDS: CEFTAZIDIME PENTAHYDRATE 2 GM in DEXTROSE 5%-WATER 100 ML IV SCH ×3 (06:23→21:19)
[2018-06-30 07:14] LABS: HEMATOCRIT 25.7 % (36.0-47.0); MEAN CORPUSCULAR HEMOGLOBIN 21.2 pg (27.0-33.4); MEAN CORPUSCULAR HGB CONC 30.5 g/dL (32.0-36.0); MEAN CORPUSCULAR VOLUME 70 fl (80-97); PLATELET COUNT 363 10^3/uL (150-450); RED BLOOD COUNT 3.69 10^6/uL (3.72-5.28); RED CELL DISTRIBUTION WIDTH 23.9 % (11.5-14.0); WHITE BLOOD COUNT 3.8 10^3/uL (4.0-10.5)
[2018-06-30 07:17] LABS: HEMOGLOBIN 7.8 g/dL (12.0-15.5)
[2018-06-30 07:48] LABS: ANION GAP 7 (5-19); BLOOD UREA NITROGEN 13 mg/dL (7-20); CALCIUM 7.8 mg/dL (8.4-10.2); CARBON DIOXIDE 26 mmol/L (22-30); CHLORIDE 111 mmol/L (98-107); GLUCOSE 70 mg/dL (75-110); POTASSIUM 4.4 mmol/L (3.6-5.0); SODIUM 144.1 mmol/L (137-145)
[2018-06-30] MEDS: FUROSEMIDE 20 MG TABLET PO SCH (10:41)
[2018-06-30] MEDS: ENOXAPARIN SODIUM INJ 100 MG/1 ML DISP.SYRIN SUBCUT SCH ×2 (10:42→22:50)
--- NOTE | 2018-06-30 18:27 | PDOC PROGRESS REPORT ---
Subjective Progress Note for:: 06/30/18 Subjective:: No adverse events overnight. No new complaints. Blood pressures have remained a bit elevated. She has been afebrile. She has been eating and drinking without difficulty. Reason For Visit: LLE ULCERS Physical Exam Vital Signs: Temp Pulse Resp BP Pulse Ox 97.3 F 101 H 16 163/89 H 97 06/30/18 15:05 06/30/18 15:22 06/30/18 15:22 06/30/18 15:05 06/30/18 15:22 Intake & Output 06/29/18 06/30/18 07/01/18 06:59 06:59 06:59 Intake Total 1414 1138 2806 Output Total 2 1 550 Balance 1412 1137 2256 Weight 93.4 kg 95 kg General appearance: PRESENT: no acute distress, cooperative, disheveled, obese Head exam: PRESENT: other - Chronic left facial droop Eye exam: PRESENT: other - Her left seems permanently shut Respiratory exam: PRESENT: clear to auscultation [place], symmetrical, unlabored. ABSENT: chest wall tenderness, rales, rhonchi, tachypnea, wheezes Cardiovascular exam: PRESENT: RRR, +S1, +S2 Vascular exam: PRESENT: normal capillary refill GI/Abdominal exam: PRESENT: normal bowel sounds, soft. ABSENT: distended, guarding, rebound, tenderness Extremities exam: PRESENT: other - There is 2-3+ edema in the left lower extremity distal to the knee. There are multiple cratered wounds on the leg that have gauze adherent to the wound bed and surrounding erythema, 3 fairly large wound and what appears to be one smaller wound mostly on the superior lateral aspect of the left leg and on the anterior medial aspect as well. Her left arm is chronically contracted Musculoskeletal exam: PRESENT: deformity - As noted above Neurological exam: PRESENT: alert, awake, oriented to person, oriented to place , oriented to situation Psychiatric exam: PRESENT: appropriate affect, normal mood Skin exam: PRESENT: other - As noted above Results Laboratory Results: 06/30/18 06:15 06/30/18 06:15 06/30/18 06/30/18 06/30/18 06:15 06:15 08:45 WBC 3.8 L RBC 3.69 L Hgb 7.8 L Hct 25.7 L MCV 70 L MCH 21.2 L MCHC 30.5 L RDW 23.9 H Plt Count 363 Sodium 144.1 Potassium 4.4 Chloride 111 H Carbon Dioxide 26 Anion Gap 7 BUN 13 Creatinine 0.62 Est GFR ( Amer) > 60 Est GFR (Non-Af Amer) > 60 Glucose 70 L Calcium 7.8 L Magnesium 2.0 Blood Type O POSITIVE Antibody Screen NEGATIVE Impressions: Tibia/Fibula X-Ray 06/26/18 21:09 IMPRESSION: Large soft tissue ulceration of the distal leg. Osteopenia. No acute osseous abnormality copyright 2010 [employer]- All Rights Reserved Chest X-Ray 06/26/18 22:50 IMPRESSION: No acute cardiopulmonary process. copyright 2010 [employer]- All Rights Reserved Venous Doppler Study 06/27/18 00:00 IMPRESSION: DEEP VENOUS THROMBOSIS INVOLVING THE COMMON FEMORAL VEIN AND FEMORAL VEIN. Assessment & Plan - Diagnosis (1) Cellulitis Qualifiers: Site of cellulitis: extremity Site of cellulitis of extremity: lower extremity Laterality: left Qualified Code(s): L03.116 - Cellulitis of left lower limb Is this a current diagnosis for this admission?: Yes Plan: There is Pseudomonas in the wound. She is currently on Fortaz. It is pansensitive, so we may be able to transition her over to a fluoroquinolone when she shows some more clinical improvement. (2) Leg wound, left Qualifiers: Encounter type: initial encounter Qualified Code(s): S81.802A - Unspecified open wound, left lower leg, initial encounter Is this a current diagnosis for this admission?: Yes Plan: Patient most likely venous stasis wounds, possibly in the setting of a DVT with impaired venous return. Once the venous return has improved the pressure from the venous stasis should improve and the wound should heal better. (3) Left femoral vein DVT Qualifiers: Chronicity: acute Qualified Code(s): I82.412 - Acute embolism and thrombosis of left femoral vein Is this a current diagnosis for this admission?: Yes Plan: And looks like hematology is eventually planning on transitioning her over to Xarelto after attempting to get her set up on some sort of medication assistance plan. (4) SLE (systemic lupus erythematosus) Qualifiers: Systemic lupus erythematosus organ involvement: unspecified Is this a current diagnosis for this admission?: Yes Plan: On chronic daily steroids. This is going to impair wound healing. (5) History of CVA (cerebrovascular accident) Is this a current diagnosis for this admission?: Yes Plan: We will have discharge planning evaluate her situation to see if there is any sort of option available to her for placement, possibly long-term. - Time Time Spent with patient: 25-34 minutes
[2018-06-30] MEDS: IPRATROPIUM/ALBUTEROL 0.5-2.5 MG/3 ML AMPUL NEB PRN (20:50)
[2018-06-30] MEDS: OXYCODONE-ACETAMINOPHEN 5-325 MG TABLET PO PRN (21:19)
[2018-06-30] MEDS: HYDROXYZINE HCL 10 MG TABLET PO PRN (21:19)
[2018-07-01] MEDS: PROMETHAZINE HCL 25 MG TABLET PO PRN (02:14)
[2018-07-01] MEDS: ACETAMINOPHEN 325 MG TABLET PO PRN (02:15)
[2018-07-01 05:31] LABS: HEMATOCRIT 27.9 % (36.0-47.0); HEMOGLOBIN 8.6 g/dL (12.0-15.5); MEAN CORPUSCULAR HEMOGLOBIN 21.6 pg (27.0-33.4); MEAN CORPUSCULAR HGB CONC 30.7 g/dL (32.0-36.0); MEAN CORPUSCULAR VOLUME 70 fl (80-97); PLATELET COUNT 374 10^3/uL (150-450); RED BLOOD COUNT 3.97 10^6/uL (3.72-5.28); WHITE BLOOD COUNT 4.1 10^3/uL (4.0-10.5)
[2018-07-01] MEDS: OXYCODONE-ACETAMINOPHEN 5-325 MG TABLET PO PRN (05:56)
[2018-07-01] MEDS: CEFTAZIDIME PENTAHYDRATE 2 GM in DEXTROSE 5%-WATER 100 ML IV SCH ×3 (05:57→22:57)
[2018-07-01] MEDS: IPRATROPIUM/ALBUTEROL 0.5-2.5 MG/3 ML AMPUL NEB PRN ×2 (07:53→16:44)
--- NOTE | 2018-07-01 08:41 | PDOC PROGRESS REPORT ---
Subjective Progress Note for:: 07/01/18 Subjective:: No acute events overnight Reason For Visit: LLE ULCERS Physical Exam Vital Signs: Temp Pulse Resp BP Pulse Ox 98.1 F 93 20 136/81 H 99 07/01/18 08:00 07/01/18 08:00 07/01/18 08:00 07/01/18 08:00 07/01/18 08:00 Intake & Output 06/30/18 07/01/18 07/02/18 06:59 06:59 06:59 Intake Total 1138 3450 Output Total 1 550 Balance 1137 2900 Weight 95 kg 95.3 kg General appearance: PRESENT: no acute distress, well-developed, well-nourished Head exam: PRESENT: atraumatic, normocephalic Eye exam: PRESENT: conjunctiva pink, EOMI, PERRLA. ABSENT: scleral icterus Ear exam: PRESENT: normal external ear exam Mouth exam: PRESENT: moist, tongue midline Neck exam: ABSENT: carotid bruit, JVD, lymphadenopathy, thyromegaly Respiratory exam: PRESENT: clear to auscultation [place]. ABSENT: rales, rhonchi, wheezes Cardiovascular exam: PRESENT: RRR. ABSENT: diastolic murmur, rubs, systolic murmur Pulses: PRESENT: normal dorsalis pedis pul Vascular exam: PRESENT: normal capillary refill GI/Abdominal exam: PRESENT: normal bowel sounds, soft. ABSENT: distended, guarding, mass, organolmegaly, rebound, tenderness Rectal exam: PRESENT: deferred Extremities exam: PRESENT: full ROM. ABSENT: calf tenderness, clubbing, pedal edema Neurological exam: PRESENT: alert, awake, oriented to person, oriented to place , oriented to time, oriented to situation, CN II-XII grossly intact. ABSENT: motor sensory deficit Psychiatric exam: PRESENT: appropriate affect, normal mood. ABSENT: homicidal ideation, suicidal ideation Skin exam: PRESENT: dry, intact, warm. ABSENT: cyanosis, rash Results Laboratory Results: 07/01/18 04:32 06/30/18 06:15 06/30/18 07/01/18 08:45 04:32 WBC 4.1 RBC 3.97 Hgb 8.6 L Hct 27.9 L MCV 70 L MCH 21.6 L MCHC 30.7 L RDW 25.0 H Plt Count 374 Blood Type O POSITIVE Antibody Screen NEGATIVE Impressions: Tibia/Fibula X-Ray 06/26/18 21:09 IMPRESSION: Large soft tissue ulceration of the distal leg. Osteopenia. No acute osseous abnormality copyright 2010 [email or web address]- All Rights Reserved Chest X-Ray 06/26/18 22:50 IMPRESSION: No acute cardiopulmonary process. copyright 2010 [email or web address]- All Rights Reserved Venous Doppler Study 06/27/18 00:00 IMPRESSION: DEEP VENOUS THROMBOSIS INVOLVING THE COMMON FEMORAL VEIN AND FEMORAL VEIN. Assessment & Plan - Diagnosis (1) Left femoral vein DVT Qualifiers: Chronicity: acute Qualified Code(s): I82.412 - Acute embolism and thrombosis of left femoral vein Is this a current diagnosis for this admission?: Yes Plan: Cont lifelong anticoag, con't lovenox while in house but on d/c would recommend xarelto 15mg BID x 21 days then 20mg daily thereafter. Let us know when pt is ready for d/c and we can give her samples and f/u with our office, free drug needs to be arranged. (2) Anemia, chronic disease Is this a current diagnosis for this admission?: Yes Plan: Hb stable post transfusion - Time Disposition: Will follow peripherally.
[2018-07-01] MEDS: FUROSEMIDE 20 MG TABLET PO SCH (09:45)
[2018-07-01] MEDS: ENOXAPARIN SODIUM INJ 100 MG/1 ML DISP.SYRIN SUBCUT SCH ×2 (09:46→22:57)
[2018-07-01] MEDS: KETOROLAC TROMETHAMINE INJ/PF 30 MG/1 ML SDV IV PRN (10:33)
[2018-07-01] MEDS ORDERED: PROMETHAZINE HCL INJ 25 MG/1 ML VIAL IV PRN (15:00)
--- NOTE | 2018-07-01 20:13 | PDOC PROGRESS REPORT ---
Subjective Progress Note for:: 07/01/18 Subjective:: No acute events overnight. Patient is complaining of left lower extremity pain. Denies any fever, chills, nausea, vomiting, diarrhea or constipation. Reason For Visit: LLE ULCERS Physical Exam Vital Signs: Temp Pulse Resp BP Pulse Ox 98 F 95 18 134/74 H 97 07/01/18 16:00 07/01/18 16:44 07/01/18 16:44 07/01/18 16:00 07/01/18 16:44 Intake & Output 06/30/18 07/01/18 07/02/18 06:59 06:59 06:59 Intake Total 1138 3450 1535 Output Total 1 550 300 Balance 1137 2900 1235 Weight 95 kg 95.3 kg General appearance: PRESENT: no acute distress Respiratory exam: PRESENT: clear to auscultation [place]. ABSENT: rales, rhonchi, wheezes Cardiovascular exam: PRESENT: RRR. ABSENT: diastolic murmur, rubs, systolic murmur GI/Abdominal exam: PRESENT: normal bowel sounds, soft. ABSENT: distended, guarding, mass, organolmegaly, rebound, tenderness Results Laboratory Results: 07/01/18 04:32 06/30/18 06:15 07/01/18 04:32 WBC 4.1 RBC 3.97 Hgb 8.6 L Hct 27.9 L MCV 70 L MCH 21.6 L MCHC 30.7 L RDW 25.0 H Plt Count 374 06/27/18 02:55 Leg - Left Cellulitis Gram Stain - Final 06/27/18 02:55 Leg - Left Cellulitis Wound Culture - Final Pseudomonas Aeruginosa Enterococcus Faecalis(Group D) Impressions: Tibia/Fibula X-Ray 06/26/18 21:09 IMPRESSION: Large soft tissue ulceration of the distal leg. Osteopenia. No acute osseous abnormality copyright 2010 [employer]- All Rights Reserved Chest X-Ray 06/26/18 22:50 IMPRESSION: No acute cardiopulmonary process. copyright 2010 [employer]- All Rights Reserved Venous Doppler Study 06/27/18 00:00 IMPRESSION: DEEP VENOUS THROMBOSIS INVOLVING THE COMMON FEMORAL VEIN AND FEMORAL VEIN. Assessment & Plan - Diagnosis (1) Cellulitis Qualifiers: Site of cellulitis: extremity Site of cellulitis of extremity: lower extremity Laterality: left Qualified Code(s): L03.116 - Cellulitis of left lower limb Is this a current diagnosis for this admission?: Yes Plan: Due to Pseudomonas and Enterococcus faecalis pansensitive. Currently on Fortaz. Will switch to quinolones once patient has some clinical improvement. (2) Leg wound, left Qualifiers: Encounter type: initial encounter Qualified Code(s): S81.802A - Unspecified open wound, left lower leg, initial encounter Is this a current diagnosis for this admission?: Yes Plan: Most likely due to stasis in the setting of DVT with impaired venous return. Continue wound care. (3) History of CVA (cerebrovascular accident) Is this a current diagnosis for this admission?: Yes Plan: Continue PT OT stay. Continue aspirin. Consult discharge planning for possible placement. (4) Left femoral vein DVT Qualifiers: Chronicity: acute Qualified Code(s): I82.412 - Acute embolism and thrombosis of left femoral vein Is this a current diagnosis for this admission?: Yes Plan: Currently on therapeutic Lovenox with heparin to be transitioned to Xarelto upon discharge. Hematology/oncology on board. Recommendations noted. (5) SLE (systemic lupus erythematosus) Qualifiers: Systemic lupus erythematosus organ involvement: unspecified Is this a current diagnosis for this admission?: Yes Plan: Does not seem to be on flare. Outpatient PCP/rheumatology follow-up.
[2018-07-02] MEDS: CEFTAZIDIME PENTAHYDRATE 2 GM in DEXTROSE 5%-WATER 100 ML IV SCH ×3 (05:29→21:13)
[2018-07-02 06:36] LABS: ABSOLUTE EOSINOPHILS # (AUTO) 0.5 10^3/uL (0.0-0.6); ABSOLUTE LYMPHOCYTES (AUTO) 1.2 10^3/uL (0.5-4.7); ABSOLUTE MONOCYTES (AUTO) 0.3 10^3/uL (0.1-1.4); BASOPHILS % (AUTO) 0.7 % (0-2); EOSINOPHILS % (AUTO) 9.6 % (0-6); HEMATOCRIT 27.5 % (36.0-47.0); HEMOGLOBIN 8.6 g/dL (12.0-15.5); LYMPHOCYTES % (AUTO) 22.8 % (13-45); MEAN CORPUSCULAR HEMOGLOBIN 21.8 pg (27.0-33.4); MEAN CORPUSCULAR HGB CONC 31.3 g/dL (32.0-36.0); MEAN CORPUSCULAR VOLUME 70 fl (80-97); MONOCYTES % (AUTO) 6.8 % (3-13); PLATELET COUNT 375 10^3/uL (150-450); RED BLOOD COUNT 3.93 10^6/uL (3.72-5.28); RED CELL DISTRIBUTION WIDTH 25.4 % (11.5-14.0); SEGMENTED NEUTROPHILS % (AUTO) 60.1 % (42-78); TOTAL CELLS COUNTED % (AUTO) 100 %; WHITE BLOOD COUNT 5.1 10^3/uL (4.0-10.5)
[2018-07-02 06:48] LABS: ALANINE AMINOTRANSFERASE 23 U/L (9-52); ALBUMIN 2.4 g/dL (3.5-5.0); ALKALINE PHOSPHATASE 111 U/L (38-126); ANION GAP 8 (5-19); ASPARTATE AMINO TRANSFERASE 30 U/L (14-36); BLOOD UREA NITROGEN 11 mg/dL (7-20); CALCIUM 7.7 mg/dL (8.4-10.2); CARBON DIOXIDE 23 mmol/L (22-30); CHLORIDE 111 mmol/L (98-107); GLUCOSE 82 mg/dL (75-110); POTASSIUM 4.6 mmol/L (3.6-5.0); SODIUM 142.2 mmol/L (137-145); TOTAL PROTEIN 6.1 g/dL (6.3-8.2)
[2018-07-02 06:49] LABS: BILIRUBIN,TOTAL < 0.1 mg/dL (0.2-1.3)
[2018-07-02 07:18] LABS: ANISOCYTOSIS 3+; HYPOCHROMASIA 2+; OVALOCYTES 1+; PLATELET COMMENT ADEQUATE; POIKILOCYTOSIS 1+; ROULEAUX 2+
[2018-07-02] MEDS: ENOXAPARIN SODIUM INJ 100 MG/1 ML DISP.SYRIN SUBCUT SCH ×2 (11:23→21:12)
[2018-07-02] MEDS: FUROSEMIDE 20 MG TABLET PO SCH (11:23)
[2018-07-02] MEDS: ACETAMINOPHEN 325 MG TABLET PO PRN (14:24)
[2018-07-02] MEDS ORDERED: GUAIFENESIN/D-METHORPHAN (200-20 MG) SYRUP 10 ML PO PRN (15:46)
--- NOTE | 2018-07-02 15:54 | PDOC PROGRESS REPORT ---
Subjective Progress Note for:: 07/02/18 Subjective:: 07/28/2018. No acute events overnight. Patient is complaining of left lower extremity pain. Denies any fever, chills, nausea, vomiting, diarrhea or constipation. 07/02/2018. No acute events overnight. Patient stated that her left lower extremity pain is improving compared to yesterday. She is also complaining of mild productive cough but denying any fever, chills, chest pain, nausea, vomiting, diarrhea or any urinary symptoms. Reason For Visit: LLE ULCERS Physical Exam Vital Signs: Temp Pulse Resp BP Pulse Ox 98.0 F 96 20 149/88 H 98 07/02/18 12:39 07/02/18 12:39 07/02/18 12:39 07/02/18 12:39 07/02/18 12:39 Intake & Output 07/01/18 07/02/18 07/03/18 06:59 06:59 06:59 Intake Total 3450 1735 100 Output Total 550 300 Balance 2900 1435 100 Weight 95.3 kg 95.5 kg General appearance: PRESENT: no acute distress, well-developed, well-nourished Head exam: PRESENT: atraumatic, normocephalic Respiratory exam: PRESENT: clear to auscultation [place]. ABSENT: rales, rhonchi, wheezes Cardiovascular exam: PRESENT: RRR. ABSENT: diastolic murmur, rubs, systolic murmur GI/Abdominal exam: PRESENT: normal bowel sounds, soft. ABSENT: distended, guarding, mass, organolmegaly, rebound, tenderness Extremities exam: PRESENT: tenderness - Lower extremity., other - Left lower extremity ulcers on the medial aspect of the gutierrez wound is clean with granulation tissue no active discharge or sign of any active infection. Neurological exam: PRESENT: alert, awake, oriented to person, oriented to place , oriented to time, oriented to situation, CN II-XII grossly intact, other - Right-sided hemiplegia due to chronic stroke.. ABSENT: motor sensory deficit Results Laboratory Results: 07/02/18 06:09 07/02/18 06:09 07/02/18 07/02/18 06:09 06:09 WBC 5.1 RBC 3.93 Hgb 8.6 L Hct 27.5 L MCV 70 L MCH 21.8 L MCHC 31.3 L RDW 25.4 H Plt Count 375 Seg Neutrophils % 60.1 Lymphocytes % 22.8 Monocytes % 6.8 Eosinophils % 9.6 H Basophils % 0.7 Absolute Neutrophils 3.0 Absolute Lymphocytes 1.2 Absolute Monocytes 0.3 Absolute Eosinophils 0.5 Absolute Basophils 0.0 Sodium 142.2 Potassium 4.6 Chloride 111 H Carbon Dioxide 23 Anion Gap 8 BUN 11 Creatinine 0.47 L Est GFR ( Amer) > 60 Est GFR (Non-Af Amer) > 60 Glucose 82 Calcium 7.7 L Magnesium 1.9 Total Bilirubin < 0.1 L AST 30 ALT 23 Alkaline Phosphatase 111 Total Protein 6.1 L Albumin 2.4 L 06/27/18 02:55 Leg - Left Cellulitis Gram Stain - Final 06/27/18 02:55 Leg - Left Cellulitis Wound Culture - Final Pseudomonas Aeruginosa Enterococcus Faecalis(Group D) Impressions: Tibia/Fibula X-Ray 06/26/18 21:09 IMPRESSION: Large soft tissue ulceration of the distal leg. Osteopenia. No acute osseous abnormality copyright 2010 [employer]- All Rights Reserved Chest X-Ray 06/26/18 22:50 IMPRESSION: No acute cardiopulmonary process. copyright 2010 [employer]- All Rights Reserved Venous Doppler Study 06/27/18 00:00 IMPRESSION: DEEP VENOUS THROMBOSIS INVOLVING THE COMMON FEMORAL VEIN AND FEMORAL VEIN. Assessment & Plan - Diagnosis (1) Cellulitis Qualifiers: Site of cellulitis: extremity Site of cellulitis of extremity: lower extremity Laterality: left Qualified Code(s): L03.116 - Cellulitis of left lower limb Is this a current diagnosis for this admission?: Yes Plan: Due to Pseudomonas and Enterococcus faecalis pansensitive. Status post debridement on 06/27/2018. Mild clinical improvement. Currently on Fortaz. Will switch to quinolones once patient has some clinical improvement. (2) Leg wound, left Qualifiers: Encounter type: initial encounter Qualified Code(s): S81.802A - Unspecified open wound, left lower leg, initial encounter Is this a current diagnosis for this admission?: Yes Plan: Most likely due to stasis in the setting of DVT with impaired venous return. Continue wound care. (3) History of CVA (cerebrovascular accident) Is this a current diagnosis for this admission?: Yes Plan: Continue PT OT stay. Continue aspirin. Consult discharge planning for possible placement. (4) Left femoral vein DVT Qualifiers: Chronicity: acute Qualified Code(s): I82.412 - Acute embolism and thrombosis of left femoral vein Is this a current diagnosis for this admission?: Yes Plan: Currently on therapeutic Lovenox with heparin to be transitioned to Xarelto upon discharge. Hematology/oncology on board. Recommendations noted. (5) SLE (systemic lupus erythematosus) Qualifiers: Systemic lupus erythematosus organ involvement: unspecified Is this a current diagnosis for this admission?: Yes Plan: Does not seem to be on flare. Outpatient PCP/rheumatology follow-up.
[2018-07-02] MEDS: IPRATROPIUM/ALBUTEROL 0.5-2.5 MG/3 ML AMPUL NEB PRN (19:40)
[2018-07-02] MEDS: HYDROXYZINE HCL 10 MG TABLET PO PRN (21:12)
[2018-07-02] MEDS: TEMAZEPAM 15 MG CAPSULE PO PRN (21:12)
[2018-07-03] MEDS: CEFTAZIDIME PENTAHYDRATE 2 GM in DEXTROSE 5%-WATER 100 ML IV SCH ×3 (05:53→22:07)
[2018-07-03] MEDS: OXYCODONE-ACETAMINOPHEN 5-325 MG TABLET PO PRN (05:58)
[2018-07-03 06:46] LABS: APPEARANCE,URINE CLEAR; BILIRUBIN,URINE NEGATIVE (NEGATIVE); COLOR,URINE YELLOW; GLUCOSE, URINE NEGATIVE (NEGATIVE); KETONES,URINE NEGATIVE (NEGATIVE); LEUKOCYTE ESTERASE,URINE NEGATIVE (NEGATIVE); NITRITE,URINE NEGATIVE (NEGATIVE); PROTEIN,URINE 30 mg/dL (NEGATIVE); URINE SPECIFIC GRAVITY 1.021; UROBILINOGEN,URINE NEGATIVE mg/dL (<2.0)
[2018-07-03 07:05] LABS: HEMATOCRIT 27.6 % (36.0-47.0); HEMOGLOBIN 8.6 g/dL (12.0-15.5); MEAN CORPUSCULAR HEMOGLOBIN 21.8 pg (27.0-33.4); MEAN CORPUSCULAR HGB CONC 31.1 g/dL (32.0-36.0); MEAN CORPUSCULAR VOLUME 70 fl (80-97); PLATELET COUNT 349 10^3/uL (150-450); RED BLOOD COUNT 3.95 10^6/uL (3.72-5.28); RED CELL DISTRIBUTION WIDTH 25.4 % (11.5-14.0); WHITE BLOOD COUNT 5.4 10^3/uL (4.0-10.5)
[2018-07-03 07:19] LABS: ALANINE AMINOTRANSFERASE 30 U/L (9-52); ALBUMIN 2.4 g/dL (3.5-5.0); ALKALINE PHOSPHATASE 114 U/L (38-126); ANION GAP 6 (5-19); ASPARTATE AMINO TRANSFERASE 34 U/L (14-36); BILIRUBIN,DIRECT 0.2 mg/dL (0.0-0.4); BILIRUBIN,TOTAL 0.2 mg/dL (0.2-1.3); BLOOD UREA NITROGEN 9 mg/dL (7-20); CALCIUM 7.8 mg/dL (8.4-10.2); CARBON DIOXIDE 25 mmol/L (22-30); CHLORIDE 112 mmol/L (98-107); GLUCOSE 81 mg/dL (75-110); POTASSIUM 4.4 mmol/L (3.6-5.0); SODIUM 142.6 mmol/L (137-145)
[2018-07-03] MEDS: CARVEDILOL 6.25 MG TABLET PO SCH ×2 (09:39→22:07)
[2018-07-03] MEDS: ACETAMINOPHEN 325 MG TABLET PO PRN ×2 (09:39→15:28)
[2018-07-03] MEDS: FUROSEMIDE 20 MG TABLET PO SCH (09:40)
[2018-07-03] MEDS: HYDROXYZINE HCL 10 MG TABLET PO PRN ×2 (09:40→15:31)
[2018-07-03] MEDS: ENOXAPARIN SODIUM INJ 100 MG/1 ML DISP.SYRIN SUBCUT SCH ×2 (09:41→22:07)
--- NOTE | 2018-07-03 15:25 | RADIOLOGY REPORT (SQ) ---
EXAM DESCRIPTION: KUB/ABDOMEN (SINGLE VIEW) COMPLETED DATE/TIME: 07/03/2018 3:11 pm REASON FOR STUDY: Abdominal Pain COMPARISON: None. NUMBER OF VIEWS: One view. TECHNIQUE: Supine radiographic image of the abdomen acquired. LIMITATIONS: None. FINDINGS: BOWEL GAS PATTERN: Bare area without bowel gas air bubbles over the left lower quadrant. Dilated small bowel loops in the mid epigastrium. Moderate stool in the transverse colon. Question left lower quadrant hernia with entrapped bowel loops. This report was discussed with Dr. Roy CALCIFICATIONS: No suspicious calcifications. SOFT TISSUES: No gross mass or suggestion of organomegaly. HARDWARE: None in the abdomen. BONES: No acute fracture. No worrisome bone lesions. OTHER: No other significant finding. IMPRESSION: Findings worrisome for left lower quadrant hernia containing bowel loops with more proxi mal small bowel obstruction COMMENT: Pertinent findings on the imaging study reported as a CRITICAL RESULT to KENZIE KING MD at 15:10 on 07/03/2018. Category of Critical Result: Left lower quadrant hernia with bowel obstruction suspected TECHNICAL DOCUMENTATION: JOB ID: [id number] [employer]- All Rights Reserved Reading location - IP/workstation name: [email or web address]
[2018-07-03] MEDS: IPRATROPIUM/ALBUTEROL 0.5-2.5 MG/3 ML AMPUL NEB PRN (16:33)
--- NOTE | 2018-07-03 18:16 | PDOC PROGRESS REPORT ---
Subjective Progress Note for:: 07/03/18 Subjective:: 07/01/2018. No acute events overnight. Patient is complaining of left lower extremity pain. Denies any fever, chills, nausea, vomiting, diarrhea or constipation. 07/02/2018. No acute events overnight. Patient stated that her left lower extremity pain is improving compared to yesterday. She is also complaining of mild productive cough but denying any fever, chills, chest pain, nausea, vomiting, diarrhea or any urinary symptoms. 07/03/2018. No acute events overnight. Patient in the morning was complaining of worsening abdominal pain and vertigo. She stated that her left lower extremity pain has been improving. A KUB was done which was worrisome for possible obstruction and a follow-up abdominal CT is still pending. Patient is passing gas and have had one bowel movement today. He denies any fever, chills , chest pain, nausea, vomiting, diarrhea or any urinary symptoms. Reason For Visit: LLE ULCERS Physical Exam Vital Signs: Temp Pulse Resp BP Pulse Ox 98.1 F 97 24 H 149/104 H 96 07/03/18 11:43 07/03/18 11:43 07/03/18 11:43 07/03/18 11:43 07/03/18 11:43 Intake & Output 07/02/18 07/03/18 07/04/18 06:59 06:59 06:59 Intake Total 1735 1257 100 Output Total 300 1101 Balance 1435 156 100 Weight 95.5 kg 96.3 kg General appearance: PRESENT: no acute distress, well-developed, well-nourished Respiratory exam: PRESENT: clear to auscultation [place]. ABSENT: rales, rhonchi, wheezes Cardiovascular exam: PRESENT: RRR. ABSENT: diastolic murmur, rubs, systolic murmur GI/Abdominal exam: PRESENT: guarding, hypoactive bowel sounds, normal bowel sounds, tenderness - Diffuse tenderness., other - There is a linear surgical scar on the mid abdomen and patient states that she had breast reduction surgery.. ABSENT: distended, mass, organolmegaly, rebound Neurological exam: PRESENT: alert, awake, oriented to person, oriented to place , oriented to time, oriented to situation, CN II-XII grossly intact, other - Right-sided nina-plegia due to previous stroke. Results Laboratory Results: 07/03/18 06:41 07/03/18 06:41 07/03/18 07/03/18 07/03/18 05:59 06:41 06:41 WBC 5.4 RBC 3.95 Hgb 8.6 L Hct 27.6 L MCV 70 L MCH 21.8 L MCHC 31.1 L RDW 25.4 H Plt Count 349 Sodium 142.6 Potassium 4.4 Chloride 112 H Carbon Dioxide 25 Anion Gap 6 BUN 9 Creatinine 0.46 L Est GFR ( Amer) > 60 Est GFR (Non-Af Amer) > 60 Glucose 81 Calcium 7.8 L Magnesium 2.0 Total Bilirubin 0.2 AST 34 ALT 30 Alkaline Phosphatase 114 Total Protein 6.0 L Albumin 2.4 L Urine Color YELLOW Urine Appearance CLEAR Urine pH 6.0 Ur Specific [place] 1.021 Urine Protein 30 H Urine Glucose (UA) NEGATIVE Urine Ketones NEGATIVE Urine Blood NEGATIVE Urine Nitrite NEGATIVE Ur Leukocyte Esterase NEGATIVE Urine WBC (Auto) 2 Urine RBC (Auto) 1 Impressions: Tibia/Fibula X-Ray 06/26/18 21:09 IMPRESSION: Large soft tissue ulceration of the distal leg. Osteopenia. No acute osseous abnormality copyright 2010 [employer]- All Rights Reserved Chest X-Ray 06/26/18 22:50 IMPRESSION: No acute cardiopulmonary process. copyright 2010 [employer]- All Rights Reserved Venous Doppler Study 06/27/18 00:00 IMPRESSION: DEEP VENOUS THROMBOSIS INVOLVING THE COMMON FEMORAL VEIN AND FEMORAL VEIN. KUB X-Ray 07/03/18 00:00 IMPRESSION: Findings worrisome for left lower quadrant hernia containing bowel loops with more proximal small bowel obstruction Assessment & Plan - Diagnosis (1) Cellulitis Qualifiers: Site of cellulitis: extremity Site of cellulitis of extremity: lower extremity Laterality: left Qualified Code(s): L03.116 - Cellulitis of left lower limb Is this a current diagnosis for this admission?: Yes Plan: Improving. Due to Pseudomonas and Enterococcus faecalis pansensitive. Status post debridement on 06/27/2018. Mild clinical improvement. Currently on Fortaz. Will switch to quinolones once patient has some clinical improvement. (2) Abdominal pain Qualifiers: Abdominal location: generalized Qualified Code(s): R10.84 - Generalized abdominal pain Is this a current diagnosis for this admission?: Yes Plan: Concern was raised for possible obstruction. KUB was worrisome for possible incarcerated abdominal hernia. A follow-up CT is pending. Patient has had one bowel movement today and still passing gas. She has a linear scar over her abdomen which she says that she had it because of breast reduction surgery. Follow-up CT if negative for obstruction patient can receive her bowel regimen. If any sign of obstruction please call surgery immediately. (3) Leg wound, left Qualifiers: Encounter type: initial encounter Qualified Code(s): S81.802A - Unspecified open wound, left lower leg, initial encounter Is this a current diagnosis for this admission?: Yes Plan: Most likely due to stasis in the setting of DVT with impaired venous return. Continue wound care. (4) History of CVA (cerebrovascular accident) Is this a current diagnosis for this admission?: Yes Plan: Continue PT OT. Continue aspirin. Consult discharge planning for possible placement. (5) Left femoral vein DVT Qualifiers: Chronicity: acute Qualified Code(s): I82.412 - Acute embolism and thrombosis of left femoral vein Is this a current diagnosis for this admission?: Yes Plan: Currently on therapeutic Lovenox with heparin to be transitioned to Xarelto upon discharge. Hematology/oncology on board. Recommendations noted. (6) SLE (systemic lupus erythematosus) Qualifiers: Systemic lupus erythematosus organ involvement: unspecified Is this a current diagnosis for this admission?: Yes Plan: Does not seem to be on flare. Outpatient PCP/rheumatology follow-up.
--- NOTE | 2018-07-04 01:04 | RADIOLOGY REPORT (SQ) ---
EXAM DESCRIPTION: CT ABDOMEN PELVIS WITHOUT IV CONTRAST COMPLETED DATE/TME: 07/04/2018 00:00 CLINICAL HISTORY: 42 years Female, Abdominal Pain Comparison: Ultrasound left lower extremity, 06/27/18 Technique: No contrast. Coronal and sagittal reformat. This exam was performed according to our departmental dose-optimization program, which includes automated exposure control, adjustment of the mA and/or kV according to patient size and/or use of iterative reconstruction technique.[facility]: Dose Right [facility]: CareDose [facility]: Dose Right [facility]: Teradose 4D [facility]: [employer]athica LIMITATIONS: Arm position. Findings: Moderate ascites. Complex solid and cystic 23 x 20 x 14 cm left paracentral pelvic mass includes a 20 cm cystic component. Secondary mild left hydronephrosis. Moderate bilateral inguinal and anterior pelvic lymphadenopathy. Mild diffuse prominence of the left adrenal gland. Gallbladder hydrops of transverse diameter measuring 4.6 cm. Small bilateral pleural effusions. Atelectasis/scar. Moderate anasarca. Appendectomy. Bone demineralization with biconcavity of vertebral endplates at the thoracolumbar junction and colon differential etiologies include sickle cell anemia. Atherosclerosis. Unenhanced lower thorax, abdominopelvic structures, and musculoskeleton appear otherwise grossly unremarkable. Impression: 1. 23 cm complex mass of the left paracentral pelvis. Moderate lymphadenopathy. Known left femoral deep venous thrombus reported on sonogram from June 27, 2018. Differential etiologies include ovarian neoplasm. Consider further evaluation with contrast MRI and/or [facility] surgical referral. 2. Small to moderate bilateral pleural effusions. Moderate ascites. Moderate anasarca. 3. Bone demineralization with biconcavity of vertebral endplates at the thoracolumbar junction and colon differential etiologies include sickle cell anemia.
[2018-07-04] MEDS: CEFTAZIDIME PENTAHYDRATE 2 GM in DEXTROSE 5%-WATER 100 ML IV SCH ×3 (05:36→23:21)
[2018-07-04] MEDS: ACETAMINOPHEN 325 MG TABLET PO PRN (06:58)
[2018-07-04 07:25] LABS: ALANINE AMINOTRANSFERASE 30 U/L (9-52); ALBUMIN 2.7 g/dL (3.5-5.0); ALKALINE PHOSPHATASE 131 U/L (38-126); ANION GAP 6 (5-19); ASPARTATE AMINO TRANSFERASE 39 U/L (14-36); BILIRUBIN,DIRECT 0.2 mg/dL (0.0-0.4); BILIRUBIN,TOTAL 0.2 mg/dL (0.2-1.3); BLOOD UREA NITROGEN 10 mg/dL (7-20); CALCIUM 7.7 mg/dL (8.4-10.2); CARBON DIOXIDE 25 mmol/L (22-30); CHLORIDE 112 mmol/L (98-107); GLUCOSE 84 mg/dL (75-110); POTASSIUM 4.2 mmol/L (3.6-5.0); SODIUM 142.9 mmol/L (137-145); TOTAL PROTEIN 6.7 g/dL (6.3-8.2)
--- NOTE | 2018-07-04 08:36 | PDOC PROGRESS REPORT ---
Subjective Progress Note for:: 07/04/18 Subjective:: Asked to see patient because she now has a new left pelvic mass 24 cm, noted on CT. She has been having abscess abdominal pain now for several weeks but while admitted it had gotten worse, therefore they did a KUB which showed a concern of obstruction which prompted a CT of the abdomen pelvis and this unfortunately indicated a 24 cm complex mass in the left pelvis. I discussed her case extensively with hospitalist team, also discussed her case with Dr. navarrete of [facility] in [place], she needs evaluation by them but because of the left lower extremity cellulitis, she is not a candidate for a surgical intervention right now. Therefore [facility] noted that she could see them as an outpatient, when the cellulitis has been appropriately resolved, and patient has been on anticoagulation for at least a couple months with DVT. However I had a long discussion with the hospitalist team, unfortunately the cellulitis is not getting better and we wonder if there is a further surgical option needed. Reason For Visit: LLE ULCERS Physical Exam Vital Signs: Temp Pulse Resp BP Pulse Ox 98.3 F 95 20 151/94 H 96 07/03/18 23:26 07/03/18 23:26 07/03/18 23:26 07/03/18 23:26 07/03/18 23:26 Intake & Output 07/03/18 07/04/18 07/05/18 06:59 06:59 06:59 Intake Total 1257 1714 Output Total 1101 400 Balance 156 1314 Weight 96.3 kg 98.1 kg General appearance: PRESENT: no acute distress, well-developed, well-nourished Head exam: PRESENT: atraumatic, normocephalic Eye exam: PRESENT: conjunctiva pink, EOMI, PERRLA. ABSENT: scleral icterus Ear exam: PRESENT: normal external ear exam Mouth exam: PRESENT: moist, tongue midline Neck exam: ABSENT: carotid bruit, JVD, lymphadenopathy, thyromegaly Respiratory exam: PRESENT: clear to auscultation [place]. ABSENT: rales, rhonchi, wheezes Cardiovascular exam: PRESENT: RRR. ABSENT: diastolic murmur, rubs, systolic murmur Pulses: PRESENT: normal dorsalis pedis pul Vascular exam: PRESENT: normal capillary refill GI/Abdominal exam: PRESENT: normal bowel sounds, soft. ABSENT: distended, guarding, mass, organolmegaly, rebound, tenderness Rectal exam: PRESENT: deferred Extremities exam: PRESENT: full ROM. ABSENT: calf tenderness, clubbing, pedal edema Neurological exam: PRESENT: alert, awake, oriented to person, oriented to place , oriented to time, oriented to situation, CN II-XII grossly intact. ABSENT: motor sensory deficit Psychiatric exam: PRESENT: appropriate affect, normal mood. ABSENT: homicidal ideation, suicidal ideation Skin exam: PRESENT: dry, intact, warm. ABSENT: cyanosis, rash Results Laboratory Results: 07/04/18 06:31 07/03/18 07/04/18 06:41 06:31 WBC 5.4 RBC 3.95 Hgb 8.6 L Hct 27.6 L MCV 70 L MCH 21.8 L MCHC 31.1 L RDW 25.4 H Plt Count 349 Sodium 142.9 Potassium 4.2 Chloride 112 H Carbon Dioxide 25 Anion Gap 6 BUN 10 Creatinine 0.51 L Est GFR ( Amer) > 60 Est GFR (Non-Af Amer) > 60 Glucose 84 Calcium 7.7 L Total Bilirubin 0.2 AST 39 H ALT 30 Alkaline Phosphatase 131 H Total Protein 6.7 Albumin 2.7 L Impressions: Tibia/Fibula X-Ray 06/26/18 21:09 IMPRESSION: Large soft tissue ulceration of the distal leg. Osteopenia. No acute osseous abnormality copyright 2010 [employer]- All Rights Reserved Chest X-Ray 06/26/18 22:50 IMPRESSION: No acute cardiopulmonary process. copyright 2010 [employer]- All Rights Reserved Venous Doppler Study 06/27/18 00:00 IMPRESSION: DEEP VENOUS THROMBOSIS INVOLVING THE COMMON FEMORAL VEIN AND FEMORAL VEIN. KUB X-Ray 07/03/18 00:00 IMPRESSION: Findings worrisome for left lower quadrant hernia containing bowel loops with more proximal small bowel obstruction Assessment & Plan - Diagnosis (1) Left femoral vein DVT Qualifiers: Chronicity: acute Qualified Code(s): I82.412 - Acute embolism and thrombosis of left femoral vein Is this a current diagnosis for this admission?: Yes Plan: Continue anticoagulation (2) Anemia, chronic disease Is this a current diagnosis for this admission?: Yes Plan: Hemoglobin has been stable (3) Pelvic mass Is this a current diagnosis for this admission?: Yes Plan: Concerning for primary ovarian cancer, sent CA 125 today, [facility] will not accept patient in transfer, because she is not currently a surgical candidate. We will need to address this as an outpatient. (4) Cellulitis Qualifiers: Site of cellulitis: extremity Site of cellulitis of extremity: lower extremity Laterality: left Qualified Code(s): L03.116 - Cellulitis of left lower limb Is this a current diagnosis for this admission?: Yes Plan: Left lower extremity cellulitis that I believe is there because of the thrombosis, and the thrombosis there because of the pelvic mass most likely. She needs definitive evaluation and treatment of this, unsure if this can be done here in this hospital, she may need transfer to [place] for this. - Time Time Spent with patient: 35 or more minutes
[2018-07-04] MEDS: ENOXAPARIN SODIUM INJ 100 MG/1 ML DISP.SYRIN SUBCUT SCH ×2 (09:20→23:22)
[2018-07-04] MEDS: FUROSEMIDE 20 MG TABLET PO SCH (09:22)
[2018-07-04] MEDS: CARVEDILOL 6.25 MG TABLET PO SCH ×2 (09:23→23:21)
[2018-07-04] MEDS: IPRATROPIUM/ALBUTEROL 0.5-2.5 MG/3 ML AMPUL NEB PRN (09:46)
[2018-07-04 10:51] LABS: ABSOLUTE EOSINOPHILS # (AUTO) 0.4 10^3/uL (0.0-0.6); ABSOLUTE LYMPHOCYTES (AUTO) 1.4 10^3/uL (0.5-4.7); ABSOLUTE MONOCYTES (AUTO) 0.4 10^3/uL (0.1-1.4); ABSOLUTE NEUT (AUTO) 3.6 10^3/uL (1.7-8.2); BASOPHILS % (AUTO) 0.7 % (0-2); EOSINOPHILS % (AUTO) 7.3 % (0-6); HEMATOCRIT 27.2 % (36.0-47.0); HEMOGLOBIN 8.6 g/dL (12.0-15.5); LYMPHOCYTES % (AUTO) 23.5 % (13-45); MEAN CORPUSCULAR HEMOGLOBIN 22.3 pg (27.0-33.4); MEAN CORPUSCULAR HGB CONC 31.6 g/dL (32.0-36.0); MEAN CORPUSCULAR VOLUME 71 fl (80-97); MONOCYTES % (AUTO) 7.4 % (3-13); PLATELET COUNT 353 10^3/uL (150-450); RED BLOOD COUNT 3.86 10^6/uL (3.72-5.28); RED CELL DISTRIBUTION WIDTH 25.7 % (11.5-14.0); SEGMENTED NEUTROPHILS % (AUTO) 61.1 % (42-78); TOTAL CELLS COUNTED % (AUTO) 100 %; WHITE BLOOD COUNT 5.9 10^3/uL (4.0-10.5)
[2018-07-04 11:13] LABS: ANISOCYTOSIS 3+
[2018-07-04 11:14] LABS: OVALOCYTES 2+; PLATELET COMMENT ADEQUATE; POIKILOCYTOSIS 2+; POLYCHROMASIA 1+
--- NOTE | 2018-07-04 19:25 | PDOC PROGRESS REPORT ---
Subjective Progress Note for:: 07/04/18 Subjective:: 07/01/2018. No acute events overnight. Patient is complaining of left lower extremity pain. Denies any fever, chills, nausea, vomiting, diarrhea or constipation. 07/02/2018. No acute events overnight. Patient stated that her left lower extremity pain is improving compared to yesterday. She is also complaining of mild productive cough but denying any fever, chills, chest pain, nausea, vomiting, diarrhea or any urinary symptoms. 07/03/2018. No acute events overnight. Patient in the morning was complaining of worsening abdominal pain and vertigo. She stated that her left lower extremity pain has been improving. A KUB was done which was worrisome for possible obstruction and a follow-up abdominal CT is still pending. Patient is passing gas and have had one bowel movement today. He denies any fever, chills , chest pain, nausea, vomiting, diarrhea or any urinary symptoms. 12/2017. No acute events overnight. The patient has comfortably laying in her bed in no apparent distress , abdominal pain has improved, left lower extremity pain is also improving, has had bowel movements yesterday and she is passing gas. She denies any fever, nausea, vomiting, diarrhea, constipation or any urinary symptoms. Reason For Visit: LLE ULCERS Physical Exam Vital Signs: Temp Pulse Resp BP Pulse Ox 98.3 F 94 18 146/70 H 98 07/04/18 16:00 07/04/18 16:00 07/04/18 16:00 07/04/18 16:00 07/04/18 16:00 Intake & Output 07/03/18 07/04/18 07/05/18 06:59 06:59 06:59 Intake Total 1257 1714 1276 Output Total 1101 400 Balance 156 1314 1276 Weight 96.3 kg 98.1 kg General appearance: PRESENT: no acute distress, well-developed, well-nourished Respiratory exam: PRESENT: clear to auscultation [place]. ABSENT: rales, rhonchi, wheezes Cardiovascular exam: PRESENT: RRR. ABSENT: diastolic murmur, rubs, systolic murmur GI/Abdominal exam: PRESENT: firm, normal bowel sounds, tenderness - Diffuse mild tenderness. ABSENT: distended, guarding, mass, organolmegaly, rebound Neurological exam: PRESENT: alert, awake, oriented to person, oriented to place , oriented to time, other - Unchanged chronic neurological deficits. Results Laboratory Results: 07/04/18 10:06 07/04/18 06:31 07/04/18 07/04/18 07/04/18 06:31 06:31 10:06 WBC Cancelled 5.9 RBC Cancelled 3.86 Hgb Cancelled 8.6 L Hct Cancelled 27.2 L MCV Cancelled 71 L MCH Cancelled 22.3 L MCHC Cancelled 31.6 L RDW Cancelled 25.7 H Plt Count Cancelled 353 Seg Neutrophils % Cancelled 61.1 Lymphocytes % Cancelled 23.5 Monocytes % Cancelled 7.4 Eosinophils % Cancelled 7.3 H Basophils % Cancelled 0.7 Absolute Neutrophils Cancelled 3.6 Absolute Lymphocytes Cancelled 1.4 Absolute Monocytes Cancelled 0.4 Absolute Eosinophils Cancelled 0.4 Absolute Basophils Cancelled 0.0 Sodium 142.9 Potassium 4.2 Chloride 112 H Carbon Dioxide 25 Anion Gap 6 BUN 10 Creatinine 0.51 L Est GFR ( Amer) > 60 Est GFR (Non-Af Amer) > 60 Glucose 84 Calcium 7.7 L Total Bilirubin 0.2 AST 39 H ALT 30 Alkaline Phosphatase 131 H Total Protein 6.7 Albumin 2.7 L Impressions: Tibia/Fibula X-Ray 06/26/18 21:09 IMPRESSION: Large soft tissue ulceration of the distal leg. Osteopenia. No acute osseous abnormality copyright 2010 [employer]- All Rights Reserved Chest X-Ray 06/26/18 22:50 IMPRESSION: No acute cardiopulmonary process. copyright 2010 [employer]- All Rights Reserved Venous Doppler Study 06/27/18 00:00 IMPRESSION: DEEP VENOUS THROMBOSIS INVOLVING THE COMMON FEMORAL VEIN AND FEMORAL VEIN. KUB X-Ray 07/03/18 00:00 IMPRESSION: Findings worrisome for left lower quadrant hernia containing bowel loops with more proximal small bowel obstruction Assessment & Plan - Diagnosis (1) Cellulitis Qualifiers: Site of cellulitis: extremity Site of cellulitis of extremity: lower extremity Laterality: left Qualified Code(s): L03.116 - Cellulitis of left lower limb Is this a current diagnosis for this admission?: Yes Plan: Improving. Due to Pseudomonas and Enterococcus faecalis pansensitive. Status post debridement on 06/27/2018. Mild clinical improvement. Currently on Fortaz. Will switch to quinolones once patient has some clinical improvement. (2) Abdominal mass Qualifiers: Abdominal location: left lower quadrant Qualified Code(s): R19.04 - Left lower quadrant abdominal swelling, mass and lump Is this a current diagnosis for this admission?: Yes Plan: Incidental finding on a CT done for abdominal pain. Which showed a 26 4 cm pelvic mass. Possibly of ovarian origin. Oncology was consulted. They recommended for patient to be transferred to a tertiary center where she could get seen by [facility] oncologist. Dr. Arguelles called [facility] oncologist at [place] however they refused to take patient. Plan is [facility] be seen by [facility] oncologist. (3) Abdominal pain Qualifiers: Abdominal location: generalized Qualified Code(s): R10.84 - Generalized abdominal pain Is this a current diagnosis for this admission?: Yes Plan: Improving. Concern was raised for possible obstruction. KUB was worrisome for possible incarcerated abdominal hernia. CT abdomen showed moderate ascites, complex solid cystic 23 x 20 x 14 cm left paracentral pelvic mass included 20 cm cystic component. Oncoology was reconsulted please refer to note (4) Leg wound, left Qualifiers: Encounter type: initial encounter Qualified Code(s): S81.802A - Unspecified open wound, left lower leg, initial encounter Is this a current diagnosis for this admission?: Yes Plan: Most likely due to stasis in the setting of DVT with impaired venous return. Continue wound care. (5) History of CVA (cerebrovascular accident) Is this a current diagnosis for this admission?: Yes Plan: Continue PT OT. Continue aspirin. Consult discharge planning for possible placement. (6) Left femoral vein DVT Qualifiers: Chronicity: acute Qualified Code(s): I82.412 - Acute embolism and thrombosis of left femoral vein Is this a current diagnosis for this admission?: Yes Plan: Currently on therapeutic Lovenox with heparin to be transitioned to Xarelto upon discharge. Hematology/oncology on board. Recommendations noted. (7) SLE (systemic lupus erythematosus) Qualifiers: Systemic lupus erythematosus organ involvement: unspecified Is this a current diagnosis for this admission?: Yes Plan: Does not seem to be on flare. Outpatient PCP/rheumatology follow-up.
--- NOTE | 2018-07-04 19:31 | Progress Note ---
Provider Note Provider Note: ID Telephone Consultation Note Asked by Pharmacy to review patient's chart. Pt not seen or examined. 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 She presented to the [facility] on 06/26/18 with report of fever up to 103 F at home in association with a few days of worsening erythema, swelling and drainage from ulcerations on her L leg. She was noted to have tachycardia, no fever and LLE erythema distal to the knee with swelling, blisters and three ulcerations: a small superficial 2x2 cm ulcer, a 4x9 cm clean appearing ulcer, and an approximately 5x5 cm ulcer lowermost on the medial aspect of the L leg, which contained some necrotic tissue. Debridement of the lowermost ulcer was performed on 06/27/18. Wound culture obtained on 06/27 grew 4+ Pseudomonas aeruginosa and 2+ Enterococcus faecalis. Blood cultures showed no growth. Imaging included tib/fib plain films that showed no acute osseous abnormality. Venous doppler study of the leg showed partially occlusive thrombus in the common femoral vein and occlusive thrombus in the femoral vein. Other imaging studies included CT abd/pelvis w/o IV contrast performed to evaluate abdominal pain, which found ascites and a complex pelvic mass along with pelvic lymphadenopathy. Per most recent note by sprayer leather/oncologist Dr May the LLE cellulitis is not improving despite debridement of the necrotic ulcer and antibiotic therapy (IV Unasyn for 3 days from 06/27-06/29, followed by IV Fortaz for 6 days from 06/29 to present) Impression/Recommendations If there is concern that pt is failing to improve because of the lack of enterococcal activity of Fortaz, consider switching to Zosyn 4.5 g q6h, but I am not convinced this is actually the underlying problem. Generally, in a mixed/ polymicrobial infection, dedicated antibiotic therapy against enterococci is not necessary, DVT can contribute to the same clinical manifestations as cellulitis, and cellulitis also tends to resolve very slowly if there is not appropriate elevation of the affected limb to promote drainage of edema and inflammatory substances. However, it may be reasonable to continue treatment with Zosyn for a few more days instead of Fortaz while attempting to optimize other aspects of her care. In general, treatment duration for skin/soft tissue infections is in the range of 5-10 days, depending on clinical response. Jaya Armstrong MD [facility] Infectious Diseases pager [phone]
[2018-07-04] MEDS: OXYCODONE-ACETAMINOPHEN 5-325 MG TABLET PO PRN (20:07)
[2018-07-04] MEDS: HYDROXYZINE HCL 10 MG TABLET PO PRN (23:21)
[2018-07-04] MEDS: PROMETHAZINE HCL 25 MG TABLET PO PRN (23:27)
[2018-07-05] MEDS ORDERED: IPRATROPIUM/ALBUTEROL 0.5-2.5 MG/3 ML AMPUL NEB ONE (04:05)
[2018-07-05] MEDS: CEFTAZIDIME PENTAHYDRATE 2 GM in DEXTROSE 5%-WATER 100 ML IV SCH ×2 (05:24→14:44)
[2018-07-05 06:59] LABS: HEMATOCRIT 29.5 % (36.0-47.0); HEMOGLOBIN 9.1 g/dL (12.0-15.5); MEAN CORPUSCULAR HEMOGLOBIN 21.8 pg (27.0-33.4); MEAN CORPUSCULAR HGB CONC 30.7 g/dL (32.0-36.0); MEAN CORPUSCULAR VOLUME 71 fl (80-97); PLATELET COUNT 345 10^3/uL (150-450); RED BLOOD COUNT 4.16 10^6/uL (3.72-5.28); RED CELL DISTRIBUTION WIDTH 25.7 % (11.5-14.0); WHITE BLOOD COUNT 4.4 10^3/uL (4.0-10.5)
[2018-07-05 07:01] LABS: ALANINE AMINOTRANSFERASE 23 U/L (9-52); ALBUMIN 2.5 g/dL (3.5-5.0); ALKALINE PHOSPHATASE 128 U/L (38-126); ANION GAP 9 (5-19); ASPARTATE AMINO TRANSFERASE 25 U/L (14-36); BILIRUBIN,DIRECT 0.1 mg/dL (0.0-0.4); BLOOD UREA NITROGEN 10 mg/dL (7-20); CALCIUM 7.9 mg/dL (8.4-10.2); CARBON DIOXIDE 26 mmol/L (22-30); CHLORIDE 111 mmol/L (98-107); GLUCOSE 83 mg/dL (75-110); POTASSIUM 4.2 mmol/L (3.6-5.0); SODIUM 145.6 mmol/L (137-145); TOTAL PROTEIN 6.3 g/dL (6.3-8.2)
[2018-07-05 07:03] LABS: BILIRUBIN,TOTAL < 0.1 mg/dL (0.2-1.3)
--- NOTE | 2018-07-05 08:28 | PDOC PROGRESS REPORT ---
Subjective Progress Note for:: 07/05/18 Subjective:: No acute events overnight Reason For Visit: LLE ULCERS Physical Exam Vital Signs: Temp Pulse Resp BP Pulse Ox 98.4 F 85 16 145/96 H 97 07/04/18 23:41 07/05/18 05:20 07/05/18 05:20 07/04/18 23:41 07/05/18 05:20 Intake & Output 07/04/18 07/05/18 07/06/18 06:59 06:59 06:59 Intake Total 1714 2007 Output Total 400 Balance 1314 2007 Weight 98.1 kg 95.5 kg General appearance: PRESENT: no acute distress, well-developed, well-nourished Head exam: PRESENT: atraumatic, normocephalic Eye exam: PRESENT: conjunctiva pink, EOMI, PERRLA. ABSENT: scleral icterus Ear exam: PRESENT: normal external ear exam Mouth exam: PRESENT: moist, tongue midline Neck exam: ABSENT: carotid bruit, JVD, lymphadenopathy, thyromegaly Respiratory exam: PRESENT: clear to auscultation [place]. ABSENT: rales, rhonchi, wheezes Cardiovascular exam: PRESENT: RRR. ABSENT: diastolic murmur, rubs, systolic murmur Pulses: PRESENT: normal dorsalis pedis pul Vascular exam: PRESENT: normal capillary refill GI/Abdominal exam: PRESENT: normal bowel sounds, soft. ABSENT: distended, guarding, mass, organolmegaly, rebound, tenderness Rectal exam: PRESENT: deferred Extremities exam: PRESENT: full ROM. ABSENT: calf tenderness, clubbing, pedal edema Neurological exam: PRESENT: alert, awake, oriented to person, oriented to place , oriented to time, oriented to situation, CN II-XII grossly intact. ABSENT: motor sensory deficit Psychiatric exam: PRESENT: appropriate affect, normal mood. ABSENT: homicidal ideation, suicidal ideation Skin exam: PRESENT: dry, intact, warm. ABSENT: cyanosis, rash Results Laboratory Results: 07/05/18 06:24 07/05/18 06:24 07/04/18 07/04/18 07/05/18 06:31 10:06 04:12 WBC Cancelled 5.9 Cancelled RBC Cancelled 3.86 Cancelled Hgb Cancelled 8.6 L Cancelled Hct Cancelled 27.2 L Cancelled MCV Cancelled 71 L Cancelled MCH Cancelled 22.3 L Cancelled MCHC Cancelled 31.6 L Cancelled RDW Cancelled 25.7 H Cancelled Plt Count Cancelled 353 Cancelled Seg Neutrophils % Cancelled 61.1 Lymphocytes % Cancelled 23.5 Monocytes % Cancelled 7.4 Eosinophils % Cancelled 7.3 H Basophils % Cancelled 0.7 Absolute Neutrophils Cancelled 3.6 Absolute Lymphocytes Cancelled 1.4 Absolute Monocytes Cancelled 0.4 Absolute Eosinophils Cancelled 0.4 Absolute Basophils Cancelled 0.0 Sodium Potassium Chloride Carbon Dioxide Anion Gap BUN Creatinine Est GFR ( Amer) Est GFR (Non-Af Amer) Glucose Calcium Total Bilirubin AST ALT Alkaline Phosphatase Total Protein Albumin 07/05/18 07/05/18 07/05/18 04:12 06:24 06:24 WBC 4.4 RBC 4.16 Hgb 9.1 L Hct 29.5 L MCV 71 L MCH 21.8 L MCHC 30.7 L RDW 25.7 H Plt Count 345 Seg Neutrophils % Lymphocytes % Monocytes % Eosinophils % Basophils % Absolute Neutrophils Absolute Lymphocytes Absolute Monocytes Absolute Eosinophils Absolute Basophils Sodium Cancelled 145.6 H Potassium Cancelled 4.2 Chloride Cancelled 111 H Carbon Dioxide Cancelled 26 Anion Gap Cancelled 9 BUN Cancelled 10 Creatinine Cancelled 0.45 L Est GFR ( Amer) Cancelled > 60 Est GFR (Non-Af Amer) Cancelled > 60 Glucose Cancelled 83 Calcium Cancelled 7.9 L Total Bilirubin Cancelled < 0.1 L AST Cancelled 25 ALT Cancelled 23 Alkaline Phosphatase Cancelled 128 H Total Protein Cancelled 6.3 Albumin Cancelled 2.5 L Impressions: Tibia/Fibula X-Ray 06/26/18 21:09 IMPRESSION: Large soft tissue ulceration of the distal leg. Osteopenia. No acute osseous abnormality copyright 2010 [employer]- All Rights Reserved Chest X-Ray 06/26/18 22:50 IMPRESSION: No acute cardiopulmonary process. copyright 2010 [employer]- All Rights Reserved Venous Doppler Study 06/27/18 00:00 IMPRESSION: DEEP VENOUS THROMBOSIS INVOLVING THE COMMON FEMORAL VEIN AND FEMORAL VEIN. KUB X-Ray 07/03/18 00:00 IMPRESSION: Findings worrisome for left lower quadrant hernia containing bowel loops with more proximal small bowel obstruction Assessment & Plan - Diagnosis (1) Left femoral vein DVT Qualifiers: Chronicity: acute Qualified Code(s): I82.412 - Acute embolism and thrombosis of left femoral vein Is this a current diagnosis for this admission?: Yes Plan: Cont lovenox switch to xarelto as outpt (2) Anemia, chronic disease Is this a current diagnosis for this admission?: Yes Plan: hb improved (3) Pelvic mass Is this a current diagnosis for this admission?: Yes Plan: Will not be able to address until cellulitis is under control, Dr. Bowers from [facility] happy to see pt as outpt. (4) Cellulitis Qualifiers: Site of cellulitis: extremity Site of cellulitis of extremity: lower extremity Laterality: left Qualified Code(s): L03.116 - Cellulitis of left lower limb Is this a current diagnosis for this admission?: Yes Plan: Cont per hospitalist team, ID suggested that change for enterococcus can be done by switch to Zosyn. Would recommend this change.
[2018-07-05] MEDS: CARVEDILOL 6.25 MG TABLET PO SCH ×2 (10:19→21:50)
[2018-07-05] MEDS: FUROSEMIDE 20 MG TABLET PO SCH (10:19)
[2018-07-05] MEDS: ENOXAPARIN SODIUM INJ 100 MG/1 ML DISP.SYRIN SUBCUT SCH ×2 (10:20→21:49)
[2018-07-05] MEDS: OXYCODONE-ACETAMINOPHEN 5-325 MG TABLET PO PRN (12:12)
[2018-07-05] MEDS: IPRATROPIUM/ALBUTEROL 0.5-2.5 MG/3 ML AMPUL NEB PRN (12:36)
--- NOTE | 2018-07-05 17:37 | Progress Note ---
Provider Note Provider Note: ID Consult - Brief follow up note Pt has L leg DVT and L leg ulcer with necrotic tissue and surrounding cellulitis that required debridement. Culture from debridement grew Pseudomonas and a smaller amount of Enterococcus faecalis. At this point, the patient has already received 7 days of antipseudomonal antibiotics (Fortaz -> Zosyn). There is no set duration of antibiotic thearpy that is required for skin/soft tissue infections. It is generally in the range of 5-10, perhaps up to 14 days, depending upon pathogen, host, and clinical response. Today I discussed patient's case with Dr Ferreira via telephone. Following debridement and antimicrobial therapy, pt has had improvement in LLE pain, and local signs of inflammation have nearly resolved at this point. What is failing to improve as expected is wound granulation. Antibiotics do not help wound healing, only infection, and duration of antimicrobial therapy should not be based on continued wound presence. Pt has no systemic evidence of infection. IV Zosyn can be discontinued; if needed based on presence of mild residual local signs of infection on exam, PO Levaquin 750 mg could be considered for a day or two more. Pt should not require PICC line placement or a prolonged course of antibiotics. Local wound care would need to continue along with any attempts to reduce dependent edema in the leg. Jaya Armstrong MD [facility] Infectious Diseases pager [phone]
[2018-07-05] MEDS: PIPERACILLIN SODIUM/TAZOBACTAM 4.5 GM in NORMAL SALINE 100 ML IV SCH (17:50)
--- NOTE | 2018-07-05 20:00 | PDOC PROGRESS REPORT ---
Subjective Progress Note for:: 07/05/18 Subjective:: 07/01/2018. No acute events overnight. Patient is complaining of left lower extremity pain. Denies any fever, chills, nausea, vomiting, diarrhea or constipation. 07/02/2018. No acute events overnight. Patient stated that her left lower extremity pain is improving compared to yesterday. She is also complaining of mild productive cough but denying any fever, chills, chest pain, nausea, vomiting, diarrhea or any urinary symptoms. 07/03/2018. No acute events overnight. Patient in the morning was complaining of worsening abdominal pain and vertigo. She stated that her left lower extremity pain has been improving. A KUB was done which was worrisome for possible obstruction and a follow-up abdominal CT is still pending. Patient is passing gas and have had one bowel movement today. He denies any fever, chills , chest pain, nausea, vomiting, diarrhea or any urinary symptoms. 07/04/2018. No acute events overnight. The patient has comfortably laying in her bed in no apparent distress , abdominal pain has improved, left lower extremity pain is also improving, has had bowel movements yesterday and she is passing gas. She denies any fever, nausea, vomiting, diarrhea, constipation or any urinary symptoms. 07/05/2018. No acute events overnight. Patient comfortably laying in her bed stating that she is feeling better abdominal pain has almost resolved she is having normal bowel movements and passing gas. Left lower extremity pain is also improved since admission. She denies any fever, nausea, vomiting, diarrhea , constipation or any urinary symptoms. 07/06/2018. No acute events overnight. Patient still complaining of persistent mild abdominal pain and left lower extremity pain. She is p.o. tolerant and having normal bowel bladder movements. Denies any fever, nausea, vomiting, chills, diarrhea, constipation or any urinary symptoms. Patient was updated about her abdominal mass and the fact that CA 125 was negative which makes it unlikely to be ovarian cancer. Patient was also ablated we will plan to transfer her to another inpatient where she could be seen by [facility] but it may be difficult if not patient will piece sent to inpatient care where she can receive wound care and can be followed up as outpatient by [facility]. Reason For Visit: LLE ULCERS Physical Exam Vital Signs: Temp Pulse Resp BP Pulse Ox 99.4 F 95 22 H 132/72 H 95 07/05/18 16:00 07/05/18 16:00 07/05/18 16:00 07/05/18 16:00 07/05/18 16:00 Intake & Output 07/04/18 07/05/18 07/06/18 06:59 06:59 06:59 Intake Total 1714 2007 Output Total 400 Balance 1314 2007 Weight 98.1 kg 95.5 kg General appearance: PRESENT: no acute distress, well-developed, well-nourished Respiratory exam: PRESENT: clear to auscultation [place]. ABSENT: rales, rhonchi, wheezes Cardiovascular exam: PRESENT: RRR. ABSENT: diastolic murmur, rubs, systolic murmur GI/Abdominal exam: PRESENT: firm, normal bowel sounds. ABSENT: distended, guarding, mass, organolmegaly, rebound, tenderness Neurological exam: PRESENT: alert, awake, oriented to person, oriented to place , oriented to time, oriented to situation, CN II-XII grossly intact, motor sensory deficit - Unchanged neurological status. Patient is paraparetic on the right side. Skin exam: PRESENT: other - Left lower extremity wounds look clean, no sign of granulation tissue. No sign of discharge or infection. Results Laboratory Results: 07/05/18 06:24 07/05/18 06:24 07/05/18 07/05/18 07/05/18 04:12 04:12 06:24 WBC Cancelled RBC Cancelled Hgb Cancelled Hct Cancelled MCV Cancelled MCH Cancelled MCHC Cancelled RDW Cancelled Plt Count Cancelled Sodium Cancelled 145.6 H Potassium Cancelled 4.2 Chloride Cancelled 111 H Carbon Dioxide Cancelled 26 Anion Gap Cancelled 9 BUN Cancelled 10 Creatinine Cancelled 0.45 L Est GFR ( Amer) Cancelled > 60 Est GFR (Non-Af Amer) Cancelled > 60 Glucose Cancelled 83 Calcium Cancelled 7.9 L Total Bilirubin Cancelled < 0.1 L AST Cancelled 25 ALT Cancelled 23 Alkaline Phosphatase Cancelled 128 H Total Protein Cancelled 6.3 Albumin Cancelled 2.5 L 07/05/18 06:24 WBC 4.4 RBC 4.16 Hgb 9.1 L Hct 29.5 L MCV 71 L MCH 21.8 L MCHC 30.7 L RDW 25.7 H Plt Count 345 Sodium Potassium Chloride Carbon Dioxide Anion Gap BUN Creatinine Est GFR ( Amer) Est GFR (Non-Af Amer) Glucose Calcium Total Bilirubin AST ALT Alkaline Phosphatase Total Protein Albumin Impressions: Tibia/Fibula X-Ray 06/26/18 21:09 IMPRESSION: Large soft tissue ulceration of the distal leg. Osteopenia. No acute osseous abnormality copyright 2010 [employer]- All Rights Reserved Chest X-Ray 06/26/18 22:50 IMPRESSION: No acute cardiopulmonary process. copyright 2010 [employer]- All Rights Reserved Venous Doppler Study 06/27/18 00:00 IMPRESSION: DEEP VENOUS THROMBOSIS INVOLVING THE COMMON FEMORAL VEIN AND FEMORAL VEIN. KUB X-Ray 07/03/18 00:00 IMPRESSION: Findings worrisome for left lower quadrant hernia containing bowel loops with more proximal small bowel obstruction Assessment & Plan - Diagnosis (1) Cellulitis Qualifiers: Site of cellulitis: extremity Site of cellulitis of extremity: lower extremity Laterality: left Qualified Code(s): L03.116 - Cellulitis of left lower limb Is this a current diagnosis for this admission?: Yes Plan: Improving. Ulcers are clean with no sign of infection or discharge. Healing process may be slowed by the fact that patient had a pelvic mass and a DVT which may be affecting blood flow to the left lower extremity. Of IV antibiotics and switch to p.o. levofloxacin for another 3 days. Continue wound care Cultures grew Pseudomonas and Enterococcus faecalis pansensitive. Status post debridement on 06/27/2018. Attempt to transfer patient to tertiary center where she can get her abdominal mass evaluated and possibly removed. If not patient will be transferred to inpatient with another to 3 days of p.o. 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 (2) Abdominal mass Qualifiers: Abdominal location: left lower quadrant Qualified Code(s): R19.04 - Left lower quadrant abdominal swelling, mass and lump Is this a current diagnosis for this admission?: Yes Plan: Incidental finding on a CT done for abdominal pain. Which showed a 26 4 cm pelvic mass. Possibly of ovarian origin. Oncology was consulted recommended for patient to be transferred to a tertiary center where she could get seen by [facility] oncologist. Dr. Arguelles called [facility] oncologist at [place] however they refused to take patient. Plan is to try to transfer patient to [facility] where she may be seen by [facility] oncologist if not patient will be transferred to inpatient care where she could receive care for her wound and then she can see [facility] oncologist outpatient. (3) Abdominal pain Qualifiers: Abdominal location: generalized Qualified Code(s): R10.84 - Generalized abdominal pain Is this a current diagnosis for this admission?: Yes Plan: Improved. Concern was raised for possible obstruction. KUB was worrisome for possible incarcerated abdominal hernia. CT abdomen showed moderate ascites, complex solid cystic 23 x 20 x 14 cm left paracentral pelvic mass included 20 cm cystic component. Oncoology was reconsulted please refer to note (4) History of CVA (cerebrovascular accident) Is this a current diagnosis for this admission?: Yes Plan: Continue PT OT. Continue aspirin. Consult discharge planning for possible placement. (5) Left femoral vein DVT Qualifiers: Chronicity: acute Qualified Code(s): I82.412 - Acute embolism and thrombosis of left femoral vein Is this a current diagnosis for this admission?: Yes Plan: Currently on therapeutic Lovenox with heparin to be transitioned to Xarelto upon discharge. Hematology/oncology on board. Recommendations noted. (6) SLE (systemic lupus erythematosus) Qualifiers: Systemic lupus erythematosus organ involvement: unspecified Is this a current diagnosis for this admission?: Yes Plan: 07/06/2018 it was noted the patient was developing a urticarial rash on her chest possibly SLE flareup. On admission patient had not mentioned that she was taking Plaquenil and steroid for her SLE. On 07/06/2018 she mentioned that she used to take Plaquenil and steroids for SLE but does not remember the dosage. Patient was restarted on Plaquenil and prednisone. Of note patient was started on levofloxacin p.o. today and was stopped just in case is not an allergic reaction to quinolones.
[2018-07-06] MEDS: PIPERACILLIN SODIUM/TAZOBACTAM 4.5 GM in NORMAL SALINE 100 ML IV SCH ×3 (00:35→11:31)
[2018-07-06] MEDS: OXYCODONE-ACETAMINOPHEN 5-325 MG TABLET PO PRN ×4 (00:35→23:52)
[2018-07-06 05:13] LABS: ABSOLUTE BASOPHILS # (AUTO) 0.1 10^3/uL (0.0-0.2); ABSOLUTE EOSINOPHILS # (AUTO) 0.5 10^3/uL (0.0-0.6); ABSOLUTE LYMPHOCYTES (AUTO) 1.3 10^3/uL (0.5-4.7); ABSOLUTE MONOCYTES (AUTO) 0.4 10^3/uL (0.1-1.4); ABSOLUTE NEUT (AUTO) 3.3 10^3/uL (1.7-8.2); EOSINOPHILS % (AUTO) 8.4 % (0-6); HEMATOCRIT 26.3 % (36.0-47.0); HEMOGLOBIN 8.2 g/dL (12.0-15.5); MEAN CORPUSCULAR HEMOGLOBIN 22.1 pg (27.0-33.4); MEAN CORPUSCULAR HGB CONC 31.1 g/dL (32.0-36.0); MEAN CORPUSCULAR VOLUME 71 fl (80-97); MONOCYTES % (AUTO) 6.7 % (3-13); PLATELET COUNT 338 10^3/uL (150-450); RED CELL DISTRIBUTION WIDTH 25.7 % (11.5-14.0); SEGMENTED NEUTROPHILS % (AUTO) 59.9 % (42-78); TOTAL CELLS COUNTED % (AUTO) 100 %; WHITE BLOOD COUNT 5.5 10^3/uL (4.0-10.5)
[2018-07-06 05:29] LABS: ALANINE AMINOTRANSFERASE 22 U/L (9-52); ALBUMIN 2.3 g/dL (3.5-5.0); ALKALINE PHOSPHATASE 113 U/L (38-126); ANION GAP 7 (5-19); ASPARTATE AMINO TRANSFERASE 21 U/L (14-36); BILIRUBIN,DIRECT 0.1 mg/dL (0.0-0.4); BILIRUBIN,TOTAL 0.1 mg/dL (0.2-1.3); BLOOD UREA NITROGEN 10 mg/dL (7-20); CALCIUM 7.7 mg/dL (8.4-10.2); CARBON DIOXIDE 27 mmol/L (22-30); CHLORIDE 110 mmol/L (98-107); GLUCOSE 107 mg/dL (75-110); POTASSIUM 4.2 mmol/L (3.6-5.0); SODIUM 143.5 mmol/L (137-145); TOTAL PROTEIN 5.8 g/dL (6.3-8.2)
[2018-07-06 05:34] LABS: ANISOCYTOSIS 3+; OVALOCYTES 1+; PLATELET COMMENT ADEQUATE; POIKILOCYTOSIS 1+; POLYCHROMASIA SLIGHT; TEAR DROP CELLS SLIGHT
[2018-07-06] MEDS: IPRATROPIUM/ALBUTEROL 0.5-2.5 MG/3 ML AMPUL NEB PRN ×2 (07:55→22:01)
[2018-07-06] MEDS: FUROSEMIDE 20 MG TABLET PO SCH (09:31)
[2018-07-06] MEDS: CARVEDILOL 6.25 MG TABLET PO SCH ×2 (09:31→21:01)
[2018-07-06] MEDS: ENOXAPARIN SODIUM INJ 100 MG/1 ML DISP.SYRIN SUBCUT SCH ×2 (09:40→21:01)
--- NOTE | 2018-07-06 09:46 | PDOC PROGRESS REPORT ---
Subjective Progress Note for:: 07/06/18 Subjective:: Reviewed notes, at present infectious disease feels per history that this is most likely now wound healing issues, unlikely an issue with antibiotic coverage, will just need good wound care for healing. In terms of the pelvic mass, the CA 125 is normal, making ovarian primary a little bit less likely. It may be a benign tumor. It may be metastatic disease from somewhere else. But regardless, given her lower extremity wound this needs to be addressed prior to we can address the pelvic mass. Reason For Visit: LLE ULCERS Physical Exam Vital Signs: Temp Pulse Resp BP Pulse Ox 98.1 F 98 22 H 139/89 H 97 07/06/18 08:00 07/06/18 08:00 07/06/18 08:00 07/06/18 08:00 07/06/18 08:00 Intake & Output 07/05/18 07/06/18 07/07/18 06:59 06:59 06:59 Intake Total 2007 200 100 Balance 2007 200 100 Weight 95.5 kg 95.5 kg General appearance: PRESENT: no acute distress, well-developed, well-nourished Head exam: PRESENT: atraumatic, normocephalic Eye exam: PRESENT: conjunctiva pink, EOMI, PERRLA. ABSENT: scleral icterus Ear exam: PRESENT: normal external ear exam Mouth exam: PRESENT: moist, tongue midline Neck exam: ABSENT: carotid bruit, JVD, lymphadenopathy, thyromegaly Respiratory exam: PRESENT: clear to auscultation [place]. ABSENT: rales, rhonchi, wheezes Cardiovascular exam: PRESENT: RRR. ABSENT: diastolic murmur, rubs, systolic murmur Pulses: PRESENT: normal dorsalis pedis pul Vascular exam: PRESENT: normal capillary refill GI/Abdominal exam: PRESENT: normal bowel sounds, soft. ABSENT: distended, guarding, mass, organolmegaly, rebound, tenderness Rectal exam: PRESENT: deferred Extremities exam: PRESENT: full ROM. ABSENT: calf tenderness, clubbing, pedal edema Neurological exam: PRESENT: alert, awake, oriented to person, oriented to place , oriented to time, oriented to situation, CN II-XII grossly intact. ABSENT: motor sensory deficit Psychiatric exam: PRESENT: appropriate affect, normal mood. ABSENT: homicidal ideation, suicidal ideation Skin exam: PRESENT: dry, intact, warm. ABSENT: cyanosis, rash Results Laboratory Results: 07/06/18 03:55 07/06/18 03:55 07/06/18 07/06/18 03:55 03:55 WBC 5.5 RBC 3.70 L Hgb 8.2 L Hct 26.3 L MCV 71 L MCH 22.1 L MCHC 31.1 L RDW 25.7 H Plt Count 338 Seg Neutrophils % 59.9 Lymphocytes % 24.0 Monocytes % 6.7 Eosinophils % 8.4 H Basophils % 1.0 Absolute Neutrophils 3.3 Absolute Lymphocytes 1.3 Absolute Monocytes 0.4 Absolute Eosinophils 0.5 Absolute Basophils 0.1 Sodium 143.5 Potassium 4.2 Chloride 110 H Carbon Dioxide 27 Anion Gap 7 BUN 10 Creatinine 0.56 Est GFR ( Amer) > 60 Est GFR (Non-Af Amer) > 60 Glucose 107 Calcium 7.7 L Total Bilirubin 0.1 L AST 21 ALT 22 Alkaline Phosphatase 113 Total Protein 5.8 L Albumin 2.3 L Impressions: Tibia/Fibula X-Ray 06/26/18 21:09 IMPRESSION: Large soft tissue ulceration of the distal leg. Osteopenia. No acute osseous abnormality copyright 2010 [employer]- All Rights Reserved Chest X-Ray 06/26/18 22:50 IMPRESSION: No acute cardiopulmonary process. copyright 2010 [employer]- All Rights Reserved Venous Doppler Study 06/27/18 00:00 IMPRESSION: DEEP VENOUS THROMBOSIS INVOLVING THE COMMON FEMORAL VEIN AND FEMORAL VEIN. KUB X-Ray 07/03/18 00:00 IMPRESSION: Findings worrisome for left lower quadrant hernia containing bowel loops with more proximal small bowel obstruction Assessment & Plan - Diagnosis (1) Left femoral vein DVT Qualifiers: Chronicity: acute Qualified Code(s): I82.412 - Acute embolism and thrombosis of left femoral vein Is this a current diagnosis for this admission?: Yes Plan: Continue Lovenox until discharge switch over to Xarelto. (2) Anemia, chronic disease Is this a current diagnosis for this admission?: Yes Plan: Hemoglobin stable (3) Pelvic mass Is this a current diagnosis for this admission?: Yes Plan: Workup now as outpatient, less likely to be ovarian in origin but will need [facility] SUPERVISOR oncology to see her as an outpatient. (4) Cellulitis Qualifiers: Site of cellulitis: extremity Site of cellulitis of extremity: lower extremity Laterality: left Qualified Code(s): L03.116 - Cellulitis of left lower limb Is this a current diagnosis for this admission?: Yes Plan: Continued workup per hospitalist and surgical team. - Time Disposition: We will follow peripherally, please let us know when patient is ready for discharge so we can set up follow-up. - Inpatient Certification Based on my medical assessment, after consideration of the patient's comorbidities, presenting symptoms, or acuity I expect that the services needed warrant INPATIENT care.: Yes I certify that my determination is in accordance with my understanding of Medicare's requirements for reasonable and necessary INPATIENT services [42 CFR 412.3e].: Yes Medical Necessity: Need for IV Antibiotics, Need for Surgery
[2018-07-06] MEDS: DIPHENHYDRAMINE HCL 25 MG CAPSULE PO PRN ×2 (12:39→18:34)
[2018-07-06] MEDS ORDERED: LEVOFLOXACIN 500 MG TABLET PO SCH (14:00)
--- NOTE | 2018-07-06 17:36 | PDOC TRANSFER SUMMARY ---
General Admission Date/PCP: 06/26/18 23:51 Resuscitation Status: Full Code - Transfer Diagnosis (1) Cellulitis Is this a current diagnosis for this admission?: Yes (2) Abdominal mass Is this a current diagnosis for this admission?: Yes (3) Abdominal pain Is this a current diagnosis for this admission?: Yes (4) History of CVA (cerebrovascular accident) Is this a current diagnosis for this admission?: Yes (5) Left femoral vein DVT Is this a current diagnosis for this admission?: Yes (6) SLE (systemic lupus erythematosus) Is this a current diagnosis for this admission?: Yes - Transfer Medications Home Medications: No Home Medications 06/27/18 Transfer Medications: Current Medications Acetaminophen (Tylenol 325 Mg Tablet) 650 mg PO Q4HP PRN PRN Reason: FOR PAIN OR TEMP Stop: 07/26/18 23:30 Last Admin: 07/04/18 06:58 Dose: 650 mg Al Hydrox/Mg Hydrox/Simethicone (Maalox Plus Susp 30 Udcup) 30 ml PO Q6HP PRN PRN Reason: HEARTBURN Stop: 07/26/18 23:30 Albuterol/Ipratropium (Duoneb 3 Ml Ampul) 3 ml NEB RTQ6HP PRN PRN Reason: FOR WHEEZING Stop: 08/01/18 15:45 Last Admin: 07/06/18 07:55 Dose: 3 ml Bisacodyl (Dulcolax 5 Mg Tablet) 5 mg PO DAILYP PRN PRN Reason: UNRESOLVED CONSTIPATION Stop: 07/29/18 20:41 Last Admin: 06/29/18 22:02 Dose: 5 mg Carvedilol (Coreg 6.25 Mg Tablet) 6.25 mg PO Q12 BEAU Stop: 08/02/18 09:59 Last Admin: 07/06/18 09:31 Dose: 6.25 mg Diphenhydramine HCl (Benadryl 25 Mg Capsule) 25 mg PO DAILYP PRN PRN Reason: ITCHING Stop: 08/05/18 11:41 Last Admin: 07/06/18 12:39 Dose: 25 mg Enoxaparin Sodium (Lovenox Inj 100 Mg/1 Ml Disp.Syrin) 85 mg SUBCUT Q12 BEAU Stop: 07/27/18 12:29 Last Admin: 07/06/18 09:40 Dose: 85 mg Furosemide (Lasix 20 Mg Tablet) 20 mg PO DAILY BEAU Stop: 07/30/18 09:59 Last Admin: 07/06/18 09:31 Dose: 20 mg Guaifenesin/Dextromethorphan (Robitussin-Dm Syrup 10 Ml Udcup) 10 ml PO QIDP PRN PRN Reason: COUGH Stop: 08/01/18 15:45 Last Admin: 07/04/18 23:21 Dose: 10 ml Hydroxychloroquine Sulfate (Plaquenil 200 Mg Tablet) 200 mg PO DAILY BEAU Stop: 08/06/18 09:59 Hydroxyzine HCl (Atarax 10 Mg Tablet) 10 mg PO Q6HP PRN PRN Reason: ANXIETY Stop: 07/29/18 11:59 Last Admin: 07/04/18 23:21 Dose: 10 mg Oxycodone/Acetaminophen (Percocet 5-325 Mg Tablet) 1 tab PO Q6HP PRN PRN Reason: PAIN Stop: 07/11/18 18:44 Last Admin: 07/06/18 16:11 Dose: 1 tab Prednisone (Deltasone 20 Mg Tablet) 40 mg PO DAILY BEAU Stop: 08/06/18 09:59 Prednisone (Deltasone 20 Mg Tablet) 40 mg PO NOW ONE Stop: 07/06/18 17:46 Promethazine HCl (Phenergan 25 Mg Tablet) 25 mg PO Q4HP PRN PRN Reason: FOR NAUSEA/VOMITING Stop: 07/26/18 23:30 Last Admin: 07/04/18 23:27 Dose: 25 mg Promethazine HCl (Phenergan Inj 25 Mg/1 Ml Vial) 25 mg IV Q4HP PRN PRN Reason: FOR NAUSEA/VOMITING Stop: 07/26/18 23:30 - Allergies Allergies/Adverse Reactions: No Known Allergies Allergy (Verified 04/14/18 22:08) Hospital Course Hospital Course: GREG BOATENG is a 42 year old female wheelchair dependent with past medical history of CVA with right-sided residual weakness, SLE, morbid obesity, recurrent DVT presented to ED complaining of pain and swelling of the left lower extremity. She had been treated for cellulitis prior to this with doxycycline and cellulitis had resolved. A week ago she noticed an ulceration which broke up has been getting worse for the last 4 days treated with erythema , swelling, clear discharge and pain with ambulation. She also stated that she had a fever of 103 at home but in ED her fever was 99.5 mildly tachycardic at 108. Patient was started on IV Vanco and Zosyn in ED and was admitted to the hospital. She moved to [facility] from [place] in 2018. Does not have a PCP. Used to take Coumadin for DVT but stopped taking it a year ago. On 06/27/2018 she had a debridement of her ulcers by surgery. Wound culture grew pseudomonas aeruginosa pansensitive. She was started on Vanco and Zosyn then switched to Fortaz and switch back to Zosyn. She received a total of 10 days of IV antibiotics. IV antibiotics were stopped as per ID recommendation. During hospitalization patient was also complaining of abdominal pain and constipation KUB was done which was worrisome for obstruction and a follow-up CT abdomen and pelvis showed 33 cm complex mass of the left paracentral pelvis, moderate lymphadenopathy differential diagnosis included ovarian neoplasm. Was also noted to have moderate anasarca. Oncology was consulted and patient was evaluated and as per their recommendation patient would benefit from a transfer to a tertiary center where she could be seen by an IT ADMINISTRATIVE ASSISTANT oncology. Her oncology attempted to transfer patient to [facility] however they refused the transfer. He was told that she could be discharged and be seen as outpatient at [facility] if wanted. Patient's left lower extremity ulcer did not look infected anymore however it was not healing properly and no granulation tissue was forming. It was presumed that the slow healing process could be secondary to the fact that patient has a DVT and a pelvic mass which may in turn impaired blood flow to the left lower extremity. Positive patient nonfunded and could not be transferred to an inpatient rehab where she could receive wound care and then proceed [facility] oncology as outpatient, I believe it is the best interest of the patient to be transferred to another tertiary center where she can be seen by a [facility] oncologist for possible surgical removal of the mass. Did not want to be sent to rehab or sent home and agreed with the plan to be transferred to a tertiary facility. 07/06/2018 [facility] contacted and they kindly agreed to transfer the patient for patient for further management. Dr. Rodarte hospitalist and he agreed to accept the patient. (1) Cellulitis Improving. Ulcers are clean with no sign of infection or discharge. Healing process may be slowed by the fact that patient had a pelvic mass and a DVT which may be affecting blood flow to the left lower extremity. Antibiotics stopped as per ID recommendation. Cultures grew Pseudomonas and Enterococcus faecalis pansensitive. Status post debridement on 06/27/2018. (2) Abdominal mass Incidental finding on a CT done for abdominal pain. Which showed a 23 cm pelvic mass. Possibly of ovarian origin. Oncology was consulted recommended for patient to be transferred to a tertiary center where she could get seen by [facility] oncologist. Dr. Arguelles called [facility] oncologist at [facility] however they refused to take patient. (3) Abdominal pain Improved. Concern was raised for possible obstruction. KUB was worrisome for possible incarcerated abdominal hernia. CT abdomen showed moderate ascites, complex solid cystic 23 x 20 x 14 cm left paracentral pelvic mass included 20 cm cystic component. Oncoology was reconsulted please refer to note (4) History of CVA (cerebrovascular accident) Continue PT OT. Continue aspirin. Consult discharge planning for possible placement. (5) Left femoral vein DVT Currently on therapeutic Lovenox with heparin to be transitioned to Xarelto upon discharge. Hematology/oncology on board. Recommendations noted. (6) SLE (systemic lupus erythematosus) 07/06/2018 it was noted the patient was developing a urticarial rash on her chest possibly SLE flareup. On admission patient had not mentioned that she was taking Plaquenil and steroid for her SLE. On 07/06/2018 she mentioned that she used to take Plaquenil and steroids for SLE but does not remember the dosage. Patient was restarted on Plaquenil and prednisone. Of note patient was started on levofloxacin p.o. today and was stopped just in case is not an allergic reaction to quinolones. Physical Exam Vital Signs: Temp Pulse Resp BP Pulse Ox 98.0 F 87 22 H 142/86 H 100 07/06/18 15:47 07/06/18 15:47 07/06/18 15:47 07/06/18 15:47 07/06/18 15:47 Intake & Output 07/05/18 07/06/18 07/07/18 06:59 06:59 06:59 Intake Total 2007 200 150 Balance 2007 200 150 Weight 95.5 kg 95.5 kg 95.5 kg General appearance: PRESENT: no acute distress, well-developed, well-nourished Head exam: PRESENT: atraumatic, normocephalic Respiratory exam: PRESENT: clear to auscultation [place]. ABSENT: rales, rhonchi, wheezes Cardiovascular exam: PRESENT: RRR. ABSENT: diastolic murmur, rubs, systolic murmur GI/Abdominal exam: PRESENT: distended, firm, tenderness Neurological exam: PRESENT: alert, awake, oriented to person, oriented to place , oriented to time, oriented to situation, CN II-XII grossly intact Skin exam: PRESENT: rash - Over the chest area. Likely SLE flare. Results Laboratory Results: 07/06/18 03:55 07/06/18 03:55 07/06/18 07/06/18 03:55 03:55 WBC 5.5 RBC 3.70 L Hgb 8.2 L Hct 26.3 L MCV 71 L MCH 22.1 L MCHC 31.1 L RDW 25.7 H Plt Count 338 Seg Neutrophils % 59.9 Lymphocytes % 24.0 Monocytes % 6.7 Eosinophils % 8.4 H Basophils % 1.0 Absolute Neutrophils 3.3 Absolute Lymphocytes 1.3 Absolute Monocytes 0.4 Absolute Eosinophils 0.5 Absolute Basophils 0.1 Sodium 143.5 Potassium 4.2 Chloride 110 H Carbon Dioxide 27 Anion Gap 7 BUN 10 Creatinine 0.56 Est GFR ( Amer) > 60 Est GFR (Non-Af Amer) > 60 Glucose 107 Calcium 7.7 L Total Bilirubin 0.1 L AST 21 ALT 22 Alkaline Phosphatase 113 Total Protein 5.8 L Albumin 2.3 L Impressions: Tibia/Fibula X-Ray 06/26/18 21:09 IMPRESSION: Large soft tissue ulceration of the distal leg. Osteopenia. No acute osseous abnormality copyright 2011 [employer]- All Rights Reserved Chest X-Ray 06/26/18 22:50 IMPRESSION: No acute cardiopulmonary process. copyright 2011 [employer]- All Rights Reserved Venous Doppler Study 06/27/18 00:00 IMPRESSION: DEEP VENOUS THROMBOSIS INVOLVING THE COMMON FEMORAL VEIN AND FEMORAL VEIN. KUB X-Ray 07/03/18 00:00 IMPRESSION: Findings worrisome for left lower quadrant hernia containing bowel loops with more proximal small bowel obstruction
[2018-07-06] MEDS ORDERED: PREDNISONE 20 MG TABLET PO ONE (17:45)
[2018-07-06] MEDS ORDERED: HYDROXYCHLOROQUINE SULFATE 200 MG TABLET PO ONE (17:45)
[2018-07-06] MEDS: DIPHENHYDRAMINE HCL 50 MG/ML VIAL IV ONE ×2 (18:29→18:31)
[2018-07-06] MEDS ORDERED: HYDROXYCHLOROQUINE SULFATE 200 MG TABLET ONE (18:31)
[2018-07-07] MEDS: HYDROXYZINE HCL 10 MG TABLET PO PRN (00:54)
[2018-07-07] MEDS: DIPHENHYDRAMINE HCL 25 MG CAPSULE PO PRN (02:30)
[2018-07-07] MEDS: CARVEDILOL 6.25 MG TABLET PO SCH (11:00)
[2018-07-07] MEDS: HYDROXYCHLOROQUINE SULFATE 200 MG TABLET PO SCH (11:00)
[2018-07-07] MEDS: PREDNISONE 20 MG TABLET PO SCH (11:00)
[2018-07-07] MEDS: FUROSEMIDE 20 MG TABLET PO SCH (11:00)
[2018-07-07] MEDS: ENOXAPARIN SODIUM INJ 100 MG/1 ML DISP.SYRIN SUBCUT SCH ×2 (11:00→23:01)
[2018-07-07] MEDS ORDERED: CARVEDILOL 6.25 MG TABLET PO SCH (14:00)
[2018-07-07] MEDS: IPRATROPIUM/ALBUTEROL 0.5-2.5 MG/3 ML AMPUL NEB PRN (14:07)
[2018-07-07] MEDS ORDERED: CARVEDILOL 12.5 MG TABLET PO SCH (22:00)
[2018-07-07] MEDS: OXYCODONE-ACETAMINOPHEN 5-325 MG TABLET PO PRN (23:02)
[2018-07-08] MEDS ORDERED: CARVEDILOL 12.5 MG TABLET PO SCH (06:57)
[2018-07-08 07:09] LABS: HEMATOCRIT 27.9 % (36.0-47.0); HEMOGLOBIN 8.5 g/dL (12.0-15.5); MEAN CORPUSCULAR HEMOGLOBIN 21.9 pg (27.0-33.4); MEAN CORPUSCULAR HGB CONC 30.6 g/dL (32.0-36.0); MEAN CORPUSCULAR VOLUME 72 fl (80-97); PLATELET COUNT 339 10^3/uL (150-450); RED CELL DISTRIBUTION WIDTH 25.7 % (11.5-14.0); WHITE BLOOD COUNT 4.1 10^3/uL (4.0-10.5)
[2018-07-08] MEDS: IPRATROPIUM/ALBUTEROL 0.5-2.5 MG/3 ML AMPUL NEB PRN (08:36)
[2018-07-08] MEDS: PREDNISONE 20 MG TABLET PO SCH (09:50)
[2018-07-08] MEDS: FUROSEMIDE 20 MG TABLET PO SCH (09:50)
[2018-07-08] MEDS: ENOXAPARIN SODIUM INJ 100 MG/1 ML DISP.SYRIN SUBCUT SCH (09:50)
[2018-07-08] MEDS: HYDROXYCHLOROQUINE SULFATE 200 MG TABLET PO SCH (09:51)
--- NOTE | 2018-07-08 12:04 | PDOC PROGRESS REPORT ---
Subjective Progress Note for:: 07/07/18 Subjective:: 07/01/2018. No acute events overnight. Patient is complaining of left lower extremity pain. Denies any fever, chills, nausea, vomiting, diarrhea or constipation. 07/02/2018. No acute events overnight. Patient stated that her left lower extremity pain is improving compared to yesterday. She is also complaining of mild productive cough but denying any fever, chills, chest pain, nausea, vomiting, diarrhea or any urinary symptoms. 07/03/2018. No acute events overnight. Patient in the morning was complaining of worsening abdominal pain and vertigo. She stated that her left lower extremity pain has been improving. A KUB was done which was worrisome for possible obstruction and a follow-up abdominal CT is still pending. Patient is passing gas and have had one bowel movement today. He denies any fever, chills , chest pain, nausea, vomiting, diarrhea or any urinary symptoms. 07/04/2018. No acute events overnight. The patient has comfortably laying in her bed in no apparent distress , abdominal pain has improved, left lower extremity pain is also improving, has had bowel movements yesterday and she is passing gas. She denies any fever, nausea, vomiting, diarrhea, constipation or any urinary symptoms. 07/05/2018. No acute events overnight. Patient comfortably laying in her bed stating that she is feeling better abdominal pain has almost resolved she is having normal bowel movements and passing gas. Left lower extremity pain is also improved since admission. She denies any fever, nausea, vomiting, diarrhea , constipation or any urinary symptoms. 07/06/2018. No acute events overnight. Patient still complaining of persistent mild abdominal pain and left lower extremity pain. She is p.o. tolerant and having normal bowel bladder movements. Denies any fever, nausea, vomiting, chills, diarrhea, constipation or any urinary symptoms. Patient was updated about her abdominal mass and the fact that CA 125 was negative which makes it unlikely to be ovarian cancer. Patient was also ablated we will plan to transfer her to another inpatient where she could be seen by DISTRIBUTION TRANSFORMER ASSEMBLER but it may be difficult if not patient will piece sent to inpatient care where she can receive wound care and can be followed up as outpatient by DISTRIBUTION TRANSFORMER ASSEMBLER. 05/07/2018. No acute events overnight. Abdominal pain has been resolving and is still complaining of left lower extremity soreness. Otherwise patient is denying any fever, chills, nausea, vomiting, diarrhea or constipation. Patient is p.o. tolerant and having normal bowel and bladder function. She still pending to be transferred to [facility]. Reason For Visit: LLE ULCERS Physical Exam Vital Signs: Temp Pulse Resp BP Pulse Ox 97.7 F 95 18 147/89 H 97 07/08/18 08:49 07/08/18 08:49 07/08/18 08:49 07/08/18 08:49 07/08/18 08:49 Intake & Output 07/07/18 07/08/18 07/09/18 06:59 06:59 06:59 Intake Total 1796 988 Balance 1796 988 Weight 95.5 kg 95.5 kg General appearance: PRESENT: no acute distress, well-developed, well-nourished Head exam: PRESENT: atraumatic, normocephalic Respiratory exam: PRESENT: clear to auscultation [place]. ABSENT: rales, rhonchi, wheezes GI/Abdominal exam: PRESENT: normal bowel sounds, soft. ABSENT: distended, guarding, mass, organolmegaly, rebound, tenderness Neurological exam: PRESENT: alert, altered, awake, oriented to person, oriented to place, oriented to time, oriented to situation, CN II-XII grossly intact Skin exam: PRESENT: other - Left lower extremity ulcers with clean base, still no granulation tissue, no sign of erythema swelling or infection. Results Laboratory Results: 07/08/18 06:17 07/06/18 03:55 07/08/18 06:17 WBC 4.1 RBC 3.90 Hgb 8.5 L Hct 27.9 L MCV 72 L MCH 21.9 L MCHC 30.6 L RDW 25.7 H Plt Count 339 Impressions: Tibia/Fibula X-Ray 06/26/18 21:09 IMPRESSION: Large soft tissue ulceration of the distal leg. Osteopenia. No acute osseous abnormality copyright 2010 [employer]- All Rights Reserved Chest X-Ray 06/26/18 22:50 IMPRESSION: No acute cardiopulmonary process. copyright 2010 [employer]- All Rights Reserved Venous Doppler Study 06/27/18 00:00 IMPRESSION: DEEP VENOUS THROMBOSIS INVOLVING THE COMMON FEMORAL VEIN AND FEMORAL VEIN. KUB X-Ray 07/03/18 00:00 IMPRESSION: Findings worrisome for left lower quadrant hernia containing bowel loops with more proximal small bowel obstruction Assessment & Plan - Diagnosis (1) Cellulitis Qualifiers: Site of cellulitis: extremity Site of cellulitis of extremity: lower extremity Laterality: left Qualified Code(s): L03.116 - Cellulitis of left lower limb Is this a current diagnosis for this admission?: Yes Plan: Improving. Ulcers are clean with no sign of infection or discharge. Healing process may be slowed by the fact that patient had a pelvic mass and a DVT which may be affecting blood flow to the left lower extremity. Received IV antibiotics for 10 days. Off of antibiotics. Cultures grew Pseudomonas and Enterococcus faecalis pansensitive. Status post debridement on 06/27/2018. Patient is pending transfer to [facility] (2) Abdominal mass Qualifiers: Abdominal location: left lower quadrant Qualified Code(s): R19.04 - Left lower quadrant abdominal swelling, mass and lump Is this a current diagnosis for this admission?: Yes Plan: Incidental finding on a CT done for abdominal pain. Which showed a 26 4 cm pelvic mass. Possibly of ovarian origin. Oncology was consulted recommended for patient to be transferred to a tertiary center where she could get seen by DISTRIBUTION TRANSFORMER ASSEMBLER oncologist. Dr. Arguelles called DISTRIBUTION TRANSFORMER ASSEMBLER oncologist at [place] however they refused to take patient. She has been accepted to be transferred to [facility]. Pending transfer. (3) Abdominal pain Qualifiers: Abdominal location: generalized Qualified Code(s): R10.84 - Generalized abdominal pain Is this a current diagnosis for this admission?: Yes Plan: Improved. Concern was raised for possible obstruction. KUB was worrisome for possible incarcerated abdominal hernia. CT abdomen showed moderate ascites, complex solid cystic 23 x 20 x 14 cm left paracentral pelvic mass included 20 cm cystic component. Oncoology was reconsulted please refer to note (4) History of CVA (cerebrovascular accident) Is this a current diagnosis for this admission?: Yes Plan: Continue PT OT. Continue aspirin. Consult discharge planning for possible placement. (5) Left femoral vein DVT Qualifiers: Chronicity: acute Qualified Code(s): I82.412 - Acute embolism and thrombosis of left femoral vein Is this a current diagnosis for this admission?: Yes Plan: Currently on therapeutic Lovenox with heparin to be transitioned to Xarelto upon discharge. Hematology/oncology on board. Recommendations noted. (6) SLE (systemic lupus erythematosus) Qualifiers: Systemic lupus erythematosus organ involvement: unspecified Is this a current diagnosis for this admission?: Yes Plan: Rash improving. Started on p.o. prednisone and Plaquenil. Started on p.o. calcium and vitamin D. Outpatient rheumatology follow-up.
--- NOTE | 2018-07-08 12:07 | PDOC PROGRESS REPORT ---
Subjective Progress Note for:: 07/08/18 Subjective:: 07/01/2018. No acute events overnight. Patient is complaining of left lower extremity pain. Denies any fever, chills, nausea, vomiting, diarrhea or constipation. 07/02/2018. No acute events overnight. Patient stated that her left lower extremity pain is improving compared to yesterday. She is also complaining of mild productive cough but denying any fever, chills, chest pain, nausea, vomiting, diarrhea or any urinary symptoms. 07/03/2018. No acute events overnight. Patient in the morning was complaining of worsening abdominal pain and vertigo. She stated that her left lower extremity pain has been improving. A KUB was done which was worrisome for possible obstruction and a follow-up abdominal CT is still pending. Patient is passing gas and have had one bowel movement today. He denies any fever, chills , chest pain, nausea, vomiting, diarrhea or any urinary symptoms. 07/04/2018. No acute events overnight. The patient has comfortably laying in her bed in no apparent distress , abdominal pain has improved, left lower extremity pain is also improving, has had bowel movements yesterday and she is passing gas. She denies any fever, nausea, vomiting, diarrhea, constipation or any urinary symptoms. 07/05/2018. No acute events overnight. Patient comfortably laying in her bed stating that she is feeling better abdominal pain has almost resolved she is having normal bowel movements and passing gas. Left lower extremity pain is also improved since admission. She denies any fever, nausea, vomiting, diarrhea , constipation or any urinary symptoms. 07/06/2018. No acute events overnight. Patient still complaining of persistent mild abdominal pain and left lower extremity pain. She is p.o. tolerant and having normal bowel bladder movements. Denies any fever, nausea, vomiting, chills, diarrhea, constipation or any urinary symptoms. Patient was updated about her abdominal mass and the fact that CA 125 was negative which makes it unlikely to be ovarian cancer. Patient was also ablated we will plan to transfer her to another inpatient where she could be seen by PNEUMATIC HOIST OPERATOR but it may be difficult if not patient will piece sent to inpatient care where she can receive wound care and can be followed up as outpatient by PNEUMATIC HOIST OPERATOR. 07/07/2018. No acute events overnight. Abdominal pain has been resolving and is still complaining of left lower extremity soreness. Otherwise patient is denying any fever, chills, nausea, vomiting, diarrhea or constipation. Patient is p.o. tolerant and having normal bowel and bladder function. She still pending to be transferred to [facility]. 07/05/2018. No acute events overnight. Abdominal pain is resolving. Patient is p.o. tolerant with normal bowel and bladder function. Patient is still pending transfer to [facility] Denies any fever, chills, nausea, vomiting, diarrhea, constipation or any urinary symptoms. Reason For Visit: LLE ULCERS Physical Exam Vital Signs: Temp Pulse Resp BP Pulse Ox 97.7 F 95 18 147/89 H 97 07/08/18 08:49 07/08/18 08:49 07/08/18 08:49 07/08/18 08:49 07/08/18 08:49 Intake & Output 07/07/18 07/08/18 07/09/18 06:59 06:59 06:59 Intake Total 1796 988 Balance 1796 988 Weight 95.5 kg 95.5 kg General appearance: PRESENT: no acute distress, well-developed, well-nourished Head exam: PRESENT: atraumatic, normocephalic Respiratory exam: PRESENT: clear to auscultation [place]. ABSENT: rales, rhonchi, wheezes Cardiovascular exam: PRESENT: RRR. ABSENT: diastolic murmur, rubs, systolic murmur Musculoskeletal exam: PRESENT: other - Left lower extremity ulcers with clean base, no granulation tissue, no erythema, swelling, discharge or any sign of infection. Neurological exam: PRESENT: alert, awake, oriented to person, oriented to place , oriented to time, oriented to situation, CN II-XII grossly intact, motor sensory deficit Results Laboratory Results: 07/08/18 06:17 07/06/18 03:55 07/08/18 06:17 WBC 4.1 RBC 3.90 Hgb 8.5 L Hct 27.9 L MCV 72 L MCH 21.9 L MCHC 30.6 L RDW 25.7 H Plt Count 339 Impressions: Tibia/Fibula X-Ray 06/26/18 21:09 IMPRESSION: Large soft tissue ulceration of the distal leg. Osteopenia. No acute osseous abnormality copyright 2010 [employer]- All Rights Reserved Chest X-Ray 06/26/18 22:50 IMPRESSION: No acute cardiopulmonary process. copyright 2010 [employer]- All Rights Reserved Venous Doppler Study 06/27/18 00:00 IMPRESSION: DEEP VENOUS THROMBOSIS INVOLVING THE COMMON FEMORAL VEIN AND FEMORAL VEIN. KUB X-Ray 07/03/18 00:00 IMPRESSION: Findings worrisome for left lower quadrant hernia containing bowel loops with more proximal small bowel obstruction Assessment & Plan - Diagnosis (1) Cellulitis Qualifiers: Site of cellulitis: extremity Site of cellulitis of extremity: lower extremity Laterality: left Qualified Code(s): L03.116 - Cellulitis of left lower limb Is this a current diagnosis for this admission?: Yes Plan: Improving. Ulcers are clean with no sign of infection or discharge. Healing process may be slowed by the fact that patient had a pelvic mass and a DVT which may be affecting blood flow to the left lower extremity. Received IV antibiotics for 10 days. Off of antibiotics. Cultures grew Pseudomonas and Enterococcus faecalis pansensitive. Status post debridement on 06/27/2018. Patient is pending transfer to [facility] (2) Abdominal mass Qualifiers: Abdominal location: left lower quadrant Qualified Code(s): R19.04 - Left lower quadrant abdominal swelling, mass and lump Is this a current diagnosis for this admission?: Yes Plan: Incidental finding on a CT done for abdominal pain. Which showed a 26 4 cm pelvic mass. Possibly of ovarian origin. Oncology was consulted recommended for patient to be transferred to a tertiary center where she could get seen by PNEUMATIC HOIST OPERATOR oncologist. Dr. Arguelles called PNEUMATIC HOIST OPERATOR oncologist at [place] however they refused to take patient. She has been accepted to be transferred to [facility]. Pending transfer. (3) Abdominal pain Qualifiers: Abdominal location: generalized Qualified Code(s): R10.84 - Generalized abdominal pain Is this a current diagnosis for this admission?: Yes Plan: Improved. Concern was raised for possible obstruction. KUB was worrisome for possible incarcerated abdominal hernia. CT abdomen showed moderate ascites, complex solid cystic 23 x 20 x 14 cm left paracentral pelvic mass included 20 cm cystic component. Oncoology was reconsulted please refer to note (4) History of CVA (cerebrovascular accident) Is this a current diagnosis for this admission?: Yes Plan: Continue PT OT. Continue aspirin. Consult discharge planning for possible placement. (5) Left femoral vein DVT Qualifiers: Chronicity: acute Qualified Code(s): I82.412 - Acute embolism and thrombosis of left femoral vein Is this a current diagnosis for this admission?: Yes Plan: Currently on therapeutic Lovenox with heparin to be transitioned to Xarelto upon discharge. Hematology/oncology on board. Recommendations noted. (6) SLE (systemic lupus erythematosus) Qualifiers: Systemic lupus erythematosus organ involvement: unspecified Is this a current diagnosis for this admission?: Yes Plan: Rash improving. Started on p.o. prednisone and Plaquenil. Started on p.o. calcium and vitamin D. Outpatient rheumatology follow-up.
[2018-07-08] MEDS: OXYCODONE-ACETAMINOPHEN 5-325 MG TABLET PO PRN (12:34)
[2018-07-08 14:06] VITALS: BP 146/98
--- NOTE | 2018-07-08 15:51 | PDOC TRANSFER SUMMARY ---
General Admission Date/PCP: 06/26/18 23:51 Resuscitation Status: Full Code - Transfer Diagnosis (1) Cellulitis Is this a current diagnosis for this admission?: Yes (2) Abdominal mass Is this a current diagnosis for this admission?: Yes (3) Abdominal pain Is this a current diagnosis for this admission?: Yes (4) History of CVA (cerebrovascular accident) Is this a current diagnosis for this admission?: Yes (5) Left femoral vein DVT Is this a current diagnosis for this admission?: Yes (6) SLE (systemic lupus erythematosus) Is this a current diagnosis for this admission?: Yes - Transfer Medications Transfer Medications: Current Medications Acetaminophen (Tylenol 325 Mg Tablet) 650 mg PO Q4HP PRN PRN Reason: FOR PAIN OR TEMP Stop: 07/26/18 23:30 Last Admin: 07/04/18 06:58 Dose: 650 mg Al Hydrox/Mg Hydrox/Simethicone (Maalox Plus Susp 30 Udcup) 30 ml PO Q6HP PRN PRN Reason: HEARTBURN Stop: 07/26/18 23:30 Albuterol/Ipratropium (Duoneb 3 Ml Ampul) 3 ml NEB RTQ6HP PRN PRN Reason: FOR WHEEZING Stop: 08/01/18 15:45 Last Admin: 07/08/18 08:36 Dose: 3 ml Bisacodyl (Dulcolax 5 Mg Tablet) 5 mg PO DAILYP PRN PRN Reason: UNRESOLVED CONSTIPATION Stop: 07/29/18 20:41 Last Admin: 06/29/18 22:02 Dose: 5 mg Calcium Carbonate (Os-Nestor 500 Mg Tablet (Oyster-Shell)) 500 mg PO BID BEAU Stop: 08/07/18 17:59 Carvedilol (Coreg 12.5 Mg Tablet) 25 mg PO Q12 BEAU Stop: 08/07/18 06:56 Last Admin: 07/08/18 09:50 Dose: 25 mg Cholecalciferol (Vitamin D3 1000 Unit Tablet) 2,000 unit PO DAILY BEAU Stop: 08/08/18 09:59 Diphenhydramine HCl (Benadryl 25 Mg Capsule) 25 mg PO DAILYP PRN PRN Reason: ITCHING Stop: 08/05/18 11:41 Last Admin: 07/07/18 02:30 Dose: 25 mg Enoxaparin Sodium (Lovenox Inj 100 Mg/1 Ml Disp.Syrin) 85 mg SUBCUT Q12 BEAU Stop: 07/27/18 12:29 Last Admin: 07/08/18 09:50 Dose: 85 mg Furosemide (Lasix 20 Mg Tablet) 20 mg PO DAILY BEAU Stop: 07/30/18 09:59 Last Admin: 07/08/18 09:50 Dose: 20 mg Guaifenesin/Dextromethorphan (Robitussin-Dm Syrup 10 Ml Udcup) 10 ml PO QIDP PRN PRN Reason: COUGH Stop: 08/01/18 15:45 Last Admin: 07/04/18 23:21 Dose: 10 ml Hydroxychloroquine Sulfate (Plaquenil 200 Mg Tablet) 200 mg PO DAILY BEAU Stop: 08/06/18 09:59 Last Admin: 07/08/18 09:51 Dose: 200 mg Hydroxyzine HCl (Atarax 10 Mg Tablet) 10 mg PO Q6HP PRN PRN Reason: ANXIETY Stop: 07/29/18 11:59 Last Admin: 07/07/18 00:54 Dose: 10 mg Oxycodone/Acetaminophen (Percocet 5-325 Mg Tablet) 1 tab PO Q6HP PRN PRN Reason: PAIN Stop: 07/11/18 18:44 Last Admin: 07/08/18 12:34 Dose: 1 tab Prednisone (Deltasone 20 Mg Tablet) 40 mg PO DAILY [facility] Stop: 08/06/18 09:59 Last Admin: 07/08/18 09:50 Dose: 40 mg Promethazine HCl (Phenergan 25 Mg Tablet) 25 mg PO Q4HP PRN PRN Reason: FOR NAUSEA/VOMITING Stop: 07/26/18 23:30 Last Admin: 07/04/18 23:27 Dose: 25 mg Promethazine HCl (Phenergan Inj 25 Mg/1 Ml Vial) 25 mg IV Q4HP PRN PRN Reason: FOR NAUSEA/VOMITING Stop: 07/26/18 23:30 - Allergies Allergies/Adverse Reactions: No Known Allergies Allergy (Verified 04/14/18 22:08) - Diet/Activity Discharge Diet: As Tolerated Hospital Course Hospital Course: Hospital Course Hospital Course: GREG BOATENG is a 42 year old female wheelchair dependent with past medical history of CVA with right-sided residual weakness, SLE, morbid obesity, recurrent DVT presented to ED complaining of pain and swelling of the left lower extremity. She had been treated for cellulitis prior to this with doxycycline and cellulitis had resolved. A week ago she noticed an ulceration which broke up has been getting worse for the last 4 days treated with erythema , swelling, clear discharge and pain with ambulation. She also stated that she had a fever of 103 at home but in ED her fever was 99.5 mildly tachycardic at 108. Patient was started on IV Vanco and Zosyn in ED and was admitted to the hospital. She moved to [facility] from [place] in 2018. Does not have a PCP. Used to take Coumadin for DVT but stopped taking it a year ago. On 06/27/2018 she had a debridement of her ulcers by surgery. Wound culture grew pseudomonas aeruginosa pansensitive. She was started on Vanco and Zosyn then switched to Fortaz and switch back to Zosyn. She received a total of 10 days of IV antibiotics. IV antibiotics were stopped as per ID recommendation. During hospitalization patient was also complaining of abdominal pain and constipation KUB was done which was worrisome for obstruction and a follow-up CT abdomen and pelvis showed 33 cm complex mass of the left paracentral pelvis, moderate lymphadenopathy differential diagnosis included ovarian neoplasm. Was also noted to have moderate anasarca. Oncology was consulted and patient was evaluated and as per their recommendation patient would benefit from a transfer to a tertiary center where she could be seen by an WIRELESS TELEGRAPHER oncology. Her oncology attempted to transfer patient to [place] however they refused the transfer. He was told that she could be discharged and be seen as outpatient at [place] if wanted. Patient's left lower extremity ulcer did not look infected anymore however it was not healing properly and no granulation tissue was forming. It was presumed that the slow healing process could be secondary to the fact that patient has a DVT and a pelvic mass which may in turn impaired blood flow to the left lower extremity. Positive patient nonfunded and could not be transferred to an inpatient rehab where she could receive wound care and then proceed LABORATORY COORDINATOR oncology as outpatient, I believe it is the best interest of the patient to be transferred to another tertiary center where she can be seen by a LABORATORY COORDINATOR oncologist for possible surgical removal of the mass. Did not want to be sent to rehab or sent home and agreed with the plan to be transferred to a tertiary facility. 07/06/2018 [facility] contacted and they kindly agreed to transfer the patient for patient for further management. Dr. Rodarte the hospitalist agreed to accept the patient. (1) Cellulitis Improving. Ulcers are clean with no sign of infection or discharge. Healing process may be slowed by the fact that patient had a pelvic mass and a DVT which may be affecting blood flow to the left lower extremity. Antibiotics stopped as per ID recommendation. Cultures grew Pseudomonas and Enterococcus faecalis pansensitive. Status post debridement on 06/27/2018. (2) Abdominal mass Incidental finding on a CT done for abdominal pain. Which showed a 23 cm pelvic mass. Possibly of ovarian origin. Oncology was consulted recommended for patient to be transferred to a tertiary center where she could get seen by LABORATORY COORDINATOR oncologist. Dr. Arguelles called LABORATORY COORDINATOR oncologist at [place] however they refused to take patient. (3) Abdominal pain Improved. Concern was raised for possible obstruction. KUB was worrisome for possible incarcerated abdominal hernia. CT abdomen showed moderate ascites, complex solid cystic 23 x 20 x 14 cm left paracentral pelvic mass included 20 cm cystic component. Oncoology was reconsulted please refer to note (4) History of CVA (cerebrovascular accident) Continue PT OT. Continue aspirin. Consult discharge planning for possible placement. (5) Left femoral vein DVT Currently on therapeutic Lovenox with heparin to be transitioned to Xarelto upon discharge. Hematology/oncology on board. Recommendations noted. (6) SLE (systemic lupus erythematosus) Mild Improvement. Started on p.o. prednisone and Plaquenil. Started on p.o. calcium and vitamin D for bone loss prophylaxis. Outpatient rheumatology follow-up. Physical Exam Vital Signs: Temp Pulse Resp BP Pulse Ox 98.3 F 88 16 146/98 H 98 07/08/18 12:05 07/08/18 12:05 07/08/18 12:05 07/08/18 12:05 07/08/18 12:05 Intake & Output 07/07/18 07/08/18 07/09/18 06:59 06:59 06:59 Intake Total 1796 988 711 Balance 1796 988 711 Weight 95.5 kg 95.5 kg General appearance: PRESENT: no acute distress, well-developed, well-nourished Head exam: PRESENT: atraumatic, normocephalic Respiratory exam: PRESENT: clear to auscultation [place]. ABSENT: rales, rhonchi, wheezes Cardiovascular exam: PRESENT: RRR. ABSENT: diastolic murmur, rubs, systolic murmur GI/Abdominal exam: PRESENT: firm, normal bowel sounds, soft. ABSENT: distended , guarding, mass, organolmegaly, rebound, tenderness Musculoskeletal exam: PRESENT: other - Left lower extremity ulcers look clean, no granulation tissue, no sign of infection or erythema. No discharge. Results Laboratory Results: 07/08/18 06:17 07/06/18 03:55 07/08/18 06:17 WBC 4.1 RBC 3.90 Hgb 8.5 L Hct 27.9 L MCV 72 L MCH 21.9 L MCHC 30.6 L RDW 25.7 H Plt Count 339 Impressions: Tibia/Fibula X-Ray 06/26/18 21:09 IMPRESSION: Large soft tissue ulceration of the distal leg. Osteopenia. No acute osseous abnormality copyright 2010 [employer]- All Rights Reserved Chest X-Ray 06/26/18 22:50 IMPRESSION: No acute cardiopulmonary process. copyright 2010 [employer]- All Rights Reserved Venous Doppler Study 06/27/18 00:00 IMPRESSION: DEEP VENOUS THROMBOSIS INVOLVING THE COMMON FEMORAL VEIN AND FEMORAL VEIN. KUB X-Ray 07/03/18 00:00 IMPRESSION: Findings worrisome for left lower quadrant hernia containing bowel loops with more proximal small bowel obstruction
[2018-07-08] MEDS ORDERED: CALCIUM CARBONATE 500 MG TABLET PO SCH (18:00)
[2018-07-09] MEDS ORDERED: CHOLECALCIFEROL (D3) 1,000 UNIT TABLET PO SCH (10:00)
== END 2018-07-08 18:20 | disposition short-term general hospital (02) | DRG 571 ==
LOC: ER 19:58 → EH 23:51 → 5 06-27 00:47
PROVIDERS: ADMIT Internal Medicine; ATTEND Internal Medicine
PROC: 0JBP0ZZ Excision of Left Lower Leg Subcutaneous Tissue and Fascia, Open Approach (ICD-10-PCS; principal; 2018-06-27)
PROC: 30233N1 Transfusion of Nonautologous Red Blood Cells into Peripheral Vein, Percutaneous Approach (ICD-10-PCS; 2018-06-27)
PROC: 30233N1 Transfusion of Nonautologous Red Blood Cells into Peripheral Vein, Percutaneous Approach (ICD-10-PCS; 2018-06-30)
DX: L97.222 Non-pressure chronic ulcer of left calf with fat layer exposed (principal); L03.116 Cellulitis of left lower limb; I69.254 Hemiplegia and hemiparesis following other nontraumatic intracranial hemorrhage affecting left non-dominant side; I82.412 Acute embolism and thrombosis of left femoral vein; R18.8 Other ascites; I83.028 Varicose veins of left lower extremity with ulcer other part of lower leg; R19.09 Other intra-abdominal and pelvic swelling, mass and lump; M32.9 Systemic lupus erythematosus, unspecified; Z79.52 Long term (current) use of systemic steroids; D64.9 Anemia, unspecified; B96.5 Pseudomonas (aeruginosa) (mallei) (pseudomallei) as the cause of diseases classified elsewhere; F32.9 Major depressive disorder, single episode, unspecified; I10 Essential (primary) hypertension; J45.909 Unspecified asthma, uncomplicated; B95.2 Enterococcus as the cause of diseases classified elsewhere; Z79.899 Other long term (current) drug therapy; Z99.3 Dependence on wheelchair; Z57.9 Occupational exposure to unspecified risk factor; Z90.49 Acquired absence of other specified parts of digestive tract; Z82.3 Family history of stroke; Z87.891 Personal history of nicotine dependence
CPT/HCPCS: 36415; 36430; 71045; 74018; 74176; 80048; 80053; 80202; 80307; 81001; 82803; 82962; 83605; 83735; 85025; 85027; 85610; 86304; 86850; 86900; 86901; 86920; 87040; 87070; 87077; 87086; 87186; 87205; 93005; 93010; 93971; 94640; 96361; 96365; 96375; 99285; J0295; J0713; J1200; J1644; J1650; J1885; J2270; J2543; J3370; J3490; J7030; J7060; J7512; J7620; P9016

== ENCOUNTER 2019-03-22 00:07 | Emergency (ER) | payer MEDICAID ==
[2019-03-22] MEDS ORDERED: ALBUTEROL SULFATE 0.083% NEB 2.5 MG/3 ML AMPUL NEB ONE ×2 (00:16→01:02)
[2019-03-22] MEDS ORDERED: LIDOCAINE 1% INJ-PF (10 MG/ML) 30 ML SDV INJ ONE (00:58)
--- NOTE | 2019-03-22 01:42 | RADIOLOGY REPORT (SQ) ---
EXAM DESCRIPTION: XR TIBIA FIBULA 2 VIEWS COMPLETED DATE/TME: 03/22/2019 01:01 CLINICAL HISTORY: laceration COMPARISON: None FINDINGS: Two x-ray views of the left tibia and fibula were submitted. There is no acute fracture or dislocation. Bone mineralization is within normal limits. There is no radiopaque foreign body material. Lucency within the soft tissues at the level of the anterior tibia compatible with patient's laceration. IMPRESSION: No acute fracture or dislocation.
[2019-03-22] MEDS ORDERED: IPRATROPIUM/ALBUTEROL 0.5-2.5 MG/3 ML AMPUL NEB ONE (02:44)
[2019-03-22] MEDS ORDERED: DOXYCYCLINE HYCLATE 100 MG TABLET PO ONE (03:11)
[2019-03-22] MEDS ORDERED: ALBUTEROL SULFATE HFA (90 MCG/PUFF) 8 GM MDI (1 MDI/ER DISP) IH SCH (03:15)
--- NOTE | 2019-03-22 03:15 | ER Document Report ---
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 Patient she has no feeling extremity weakness that she had a laceration. EMS reported they believe the patient herself on her wheelchair. Patient reports that her is up-to-date. Of note patient persistent cough, expiratory wheezing but denies any shortness of breath. States that she is on daily steroids but the nursing facility administer any breathing treatments. Patient also reports a productive cough but denies any chest pain, fever, chills, nausea, vomiting. Patient is wheelchair-bound. TRAVEL OUTSIDE OF THE [place] IN LAST 30 DAYS: No - HPI Onset: This afternoon Onset/Duration: Sudden Quality of pain: Achy Severity: Mild Associated symptoms: Nonproductive cough, Shortness of breath, Other - Wheezing, laceration left lower extremity. denies: Chest pain, Nausea, Vomiting Exacerbated by: Denies Relieved by: Denies Similar symptoms previously: Yes Recently seen / treated by doctor: Yes - Related Data Allergies/Adverse Reactions: No Known Allergies Allergy (Verified 04/14/18 22:08) Past Medical History - General Information source: Patient - Social History Smoking Status: Current Every Day Smoker Cigarette use (# per day): Yes - 5 Smoking Education Provided: Yes - Smoking cessation counseling was provided for 4 minutes at the bedside Frequency of alcohol use: None Drug Abuse: None Lives with: Residential Family History: None Patient has suicidal ideation: No Patient has homicidal ideation: No - Past Medical History Cardiac Medical History: Reports: Hx DVT, Hx Hypertension Pulmonary Medical History: Reports: Hx Asthma Renal/ Medical History: Denies: Hx Peritoneal Dialysis Psychiatric Medical History: Reports: Hx Depression Past Surgical History: Reports: Hx Appendectomy, Other - Left eye enucleation - Immunizations Immunizations up to date: Yes Hx Diphtheria, Pertussis, Tetanus Vaccination: Yes Review of Systems - Review of Systems Notes: REVIEW OF SYSTEMS: CONSTITUTIONAL : Denies fever, chills, or sweats. Denies recent illness. Denies weight loss, recent hospitalizations. EENT: Denies visual changes, eye pain. Denies sore throat, oral lesions, difficulty swallowing. CARDIOVASCULAR: Denies chest pain. Denies palpitations. Denies lower extremity edema. RESPIRATORY: + cough. Denies shortness of breath, + wheezing. GASTROINTESTINAL: Denies abdominal pain or distention. Denies nausea, vomiting, or diarrhea. Denies blood in vomitus, stools, or per rectum. Denies black, tarry stools. Denies constipation. GENITOURINARY: Denies difficulty urinating, painful urination, frequency, blood in urine, or vaginal discharge. MUSCULOSKELETAL: Denies back or neck pain or stiffness. Denies joint pain or swelling. SKIN: + Laceration left lower extremity HEMATOLOGIC : Denies easy bruising or bleeding. LYMPHATIC: Denies swollen glands. NEUROLOGICAL: Denies confusion or altered mental status. Denies loss of consciousness. Denies dizziness or lightheadedness. Denies headache. Denies weakness or paralysis. Denies problems difficulty with ambulation, slurred speech. Denies sensory loss, numbness, or tingling. Denies seizures. PSYCHIATRIC: Denies anxiety or stress. Denies depression, suicidal ideation, or homicidal ideation. Denies visual or auditory hallucinations. Physical Exam - Vital signs Vitals: Temp Pulse Resp BP Pulse Ox 98.5 F 103 H 20 172/98 H 94 03/22/19 01:06 03/22/19 01:06 03/22/19 01:06 03/22/19 01:06 03/22/19 01:06 - Notes Notes: PHYSICAL EXAMINATION: GENERAL: Well-appearing, well-nourished and in no acute distress. HEAD: Atraumatic, normocephalic. EYES: Pupils equal round and reactive to light, extraocular movements intact, conjunctiva are normal. ENT: Nares patent, oropharynx clear without exudates. Moist mucous membranes. NECK: Normal range of motion, supple without lymphadenopathy LUNGS: Expiratory wheezing, no increased work of breathing, no hypoxia HEART: Regular rate and rhythm without murmurs ABDOMEN: Soft, nontender, nondistended abdomen. No guarding, no rebound. No masses appreciated. Female : deferred Musculoskeletal: No range of motion of the left upper and lower extremity, 1+ edema. No cyanosis. Bilateral lower extremity pitting edema with weeping of clear fluid. Left lower extremity with a 5 cm irregular triangular-shaped laceration with flap and tissue avulsion. No associated erythema, no active bleeding NEUROLOGICAL: Cranial nerves grossly intact. Normal speech, normal gait. Normal sensory, motor exams PSYCH: Normal mood, normal affect. SKIN: 5 cm laceration to the left lower extremity that is irregular with a flap. Course - Re-evaluation Re-evalutation: 03/22/19 05:35 Tibia/Fibula X-Ray 03/22/19 01:01 IMPRESSION: No acute fracture or dislocation. Temp Pulse Resp BP Pulse Ox 98.8 F 105 H 20 168/91 H 94 03/22/19 04:21 03/22/19 04:21 03/22/19 04:21 03/22/19 04:21 03/22/19 04:21 43-year-old female presented via EMS from [facility] after sustaining a laceration to her left lower extremity via striking her leg on her wheelchair. Vital signs reviewed and patient is mildly tachycardic and hypotensive but afebrile. She is in no acute distress. She does not appear toxic. Exam is significant for diffuse wheezing with respiratory distress, and a 5 cm laceration to left lower extremity which is also edematous and weeping clear fluid. Patient was given multiple breathing treatment. She has not been hypoxic, tachypneic or displaying increased work of breathing. Patient states that she is on steroids daily but that she has not been given any breathing treatments at the nursing facility. She also reports a productive cough. Laceration repair was performed with good approximation. Patient initially denied tobacco use to myself but did admit to continuing to smoke to the nurse. Patient's tetanus is up-to-date. Wound was dressed. Patient was provided and albuterol inhaler and doxycycline was prescribed. Patient was discharged back to the nursing facility and stable condition. Patient was evaluated and treated as appropriate for the patient's presenting symptoms and complaint, with consideration of any critical or life threatening conditions that may be associated with their obtained history and exam as noted above. All results were discussed with patient . Patient provided the opportunity to ask questions, and express concerns. Patient was educated on treatments based on their presumed diagnosis as noted above. At this time we will discharge the patient with return precautions and follow-up recommendations. Verbal discharge instructions given a the bedside. Medication warnings reviewed. Patient is in agreement with this plan and has verbalized understanding of return precautions. After careful consideration I feel that that patient can be safely discharged from the emergency department, they were advised to followup with a primary care physician in 2-3 days. Dictation on this chart was performed using voice recognition software and may result in unintended grammatical, spelling, syntax or errors. - Vital Signs Vital signs: Temp Pulse Resp BP Pulse Ox 98.8 F 105 H 20 168/91 H 94 03/22/19 04:21 03/22/19 04:21 03/22/19 04:21 03/22/19 04:21 03/22/19 04:21 - Diagnostic Test Radiology reviewed: Image reviewed, Reports reviewed Procedures - Laceration/Wound Repair Left Leg Time completed: 03:48 Wound length (cm): 5 Wound's Depth, Shape: Irregular, Flap, Contused tissue Laceration pre-procedure: Sterile PPE donned, Sterile drapes applied Anesthetic type: 1% Lidocaine Volume Anesthetic (mLs): 10 Wound explored: Clean, No foreign body removed Irrigated w/ Saline (mLs): 500 Wound Repaired With: Sutures Suture Size/Type: 4:0, Prolene Number of Sutures: 6 - Horizontal mattress Post-procedure wound care: Sterile dressing applied Post-procedure NV exam normal: No Complications: No Discharge - Discharge Clinical Impression: History of CVA (cerebrovascular accident) Laceration of left lower extremity Qualifiers: Encounter type: initial encounter Qualified Code(s): S81.812A - Laceration without foreign body, left lower leg, initial encounter Asthma exacerbation Qualifiers: Asthma severity: unspecified severity Asthma persistence: persistent Qualified Code(s): J45.901 - Unspecified asthma with (acute) exacerbation Condition: Stable Disposition: SNF-Other Instructions: Antibiotic Ointment Protection ([facility]), Asthma ([facility]), Laceration Care ([facility]) Additional Instructions: Please return to your primary doctor, the ED, or an urgent care in 10 days for suture removal. Return immediately if you develop spreading redness around the wound, pus from the wound, worsening pain, or a fever of >100.4. Keep the area clean and dry. Wash gently with soap and water twice daily and cover with antibiotic ointment. You were seen for an asthma exacerbation. Your symptoms improved with treatment here in the emergency department. However, it is very important that you return to the emergency department immediately if you began to have worsening difficulty breathing that does not respond to your normal home nebulizers. You are also being sent home on a five-day course of steroids that you should start taking tomorrow. Please also follow closely with your primary care physician. you should also return to emergency department if you develop fever greater than 101, persistent cough, persistent vomiting, pass out, or any other symptoms that are concerning to you. Prescriptions: Doxycycline Hyclate 100 mg PO BID #14 capsule Forms: Elevated Blood Pressure Referrals: TYSON BOLTON MD [Primary Care Provider] - Follow up in 1 week
[2019-03-22 04:23] VITALS: BP 168/91
== END 2019-03-22 03:58 ==
LOC: ER 00:07
DX: S81.812A Laceration without foreign body, left lower leg, initial encounter (principal); W26.9XXA Contact with unspecified sharp object(s), initial encounter; Y92.129 Unspecified place in nursing home as the place of occurrence of the external cause; J45.901 Unspecified asthma with (acute) exacerbation; I69.364 Other paralytic syndrome following cerebral infarction affecting left non-dominant side; F17.210 Nicotine dependence, cigarettes, uncomplicated; I10 Essential (primary) hypertension; Z86.718 Personal history of other venous thrombosis and embolism
CPT/HCPCS: 73590; 12002; J3490 ×3; J7620; 94640; 99284; 99406

== ENCOUNTER 2019-04-06 10:23 | Emergency (ER) | payer MEDICAID ==
[2019-04-06 11:07] LABS: ABSOLUTE BASOPHILS # (AUTO) 0.1 10^3/uL (0.0-0.2); ABSOLUTE EOSINOPHILS # (AUTO) 0.2 10^3/uL (0.0-0.6); ABSOLUTE LYMPHOCYTES (AUTO) 1.5 10^3/uL (0.5-4.7); ABSOLUTE MONOCYTES (AUTO) 0.8 10^3/uL (0.1-1.4); EOSINOPHILS % (AUTO) 2.4 % (0-6); HEMATOCRIT 37.3 % (36.0-47.0); HEMOGLOBIN 12.2 g/dL (12.0-15.5); LYMPHOCYTES % (AUTO) 17.3 % (13-45); MEAN CORPUSCULAR HEMOGLOBIN 29.5 pg (27.0-33.4); MEAN CORPUSCULAR HGB CONC 32.8 g/dL (32.0-36.0); MEAN CORPUSCULAR VOLUME 90 fl (80-97); MONOCYTES % (AUTO) 9.1 % (3-13); PLATELET COUNT 260 10^3/uL (150-450); RED BLOOD COUNT 4.14 10^6/uL (3.72-5.28); RED CELL DISTRIBUTION WIDTH 15.3 % (11.5-14.0); SEGMENTED NEUTROPHILS % (AUTO) 70.2 % (42-78); TOTAL CELLS COUNTED % (AUTO) 100 %; WHITE BLOOD COUNT 8.5 10^3/uL (4.0-10.5)
[2019-04-06 11:09] LABS: VENOUS BLOOD BASE EXCESS -0.4 mmol/L; VENOUS BLOOD HCO3 25.7 mmol/L (20-32); VENOUS BLOOD PCO2 48.2 mmHg (35-63); VENOUS BLOOD PH 7.35 (7.30-7.42)
[2019-04-06 11:17] LABS: ALBUMIN 3.4 g/dL (3.5-5.0); ALKALINE PHOSPHATASE 79 U/L (38-126); ANION GAP 6 (5-19); ASPARTATE AMINO TRANSFERASE 16 U/L (14-36); BILIRUBIN,DIRECT 0.1 mg/dL (0.0-0.4); BILIRUBIN,TOTAL 0.4 mg/dL (0.2-1.3); BLOOD UREA NITROGEN 10 mg/dL (7-20); CALCIUM 9.1 mg/dL (8.4-10.2); CARBON DIOXIDE 31 mmol/L (22-30); CHLORIDE 108 mmol/L (98-107); GLUCOSE 78 mg/dL (75-110); INTERNATIONAL RATION (INR) 1.06; POTASSIUM 3.8 mmol/L (3.6-5.0); PROTHROMBIN TIME 13.8 SEC (11.4-15.4); TOTAL PROTEIN 6.6 g/dL (6.3-8.2)
[2019-04-06] MEDS ORDERED: IPRATROPIUM/ALBUTEROL 0.5-2.5 MG/3 ML AMPUL NEB ONE (11:47)
--- NOTE | 2019-04-06 11:47 | ER Document Report ---
ED Medical Screen (RME) - General Chief Complaint: Shortness Of Breath Stated Complaint: CONGESTION Time Seen by Provider: 04/06/19 11:42 Primary Care Provider: TYSON BOLTON MD [Primary Care Provider] - Follow up as needed Notes: 43-year-old female presented to ED for complaint of shortness of breath wheezing coughing. She also has a swollen left leg that she states is been swollen since surgery. She states she does not know when the surgery was or when she last saw the doctor. Main reason for being here today is her shortness of breath and wheezing. Lungs are mildly diminished. She does have a productive cough. We will treat with 1 DuoNeb and 1 and then have another provider examined. I have greeted and performed a rapid initial assessment of this patient. A comprehensive ED assessment and evaluation of the patient, analysis of test results and completion of medical decision making process will be conducted by an additional ED providers. TRAVEL OUTSIDE OF THE [place] IN LAST 30 DAYS: No - Related Data Allergies/Adverse Reactions: No Known Allergies Allergy (Verified 04/14/18 22:08) Past Medical History - Social History Frequency of alcohol use: None Drug Abuse: None - Past Medical History Cardiac Medical History: Reports: Hx DVT, Hx Hypertension Pulmonary Medical History: Reports: Hx Asthma Renal/ Medical History: Denies: Hx Peritoneal Dialysis GI Medical History: Reports: Hx Gastroesophageal Reflux Disease Psychiatric Medical History: Reports: Hx Depression Past Surgical History: Reports: Hx Appendectomy, Other - Left eye enucleation - Immunizations Immunizations up to date: Yes Hx Diphtheria, Pertussis, Tetanus Vaccination: Yes Physical Exam - Vital signs Vitals: Temp Pulse Resp BP Pulse Ox 98.6 F 94 25 H 139/93 H 94 04/06/19 10:32 04/06/19 10:32 04/06/19 10:32 04/06/19 10:32 04/06/19 10:32 Course - Vital Signs Vital signs: Temp Pulse Resp BP Pulse Ox 98.6 F 94 26 H 147/96 H 97 04/06/19 10:32 04/06/19 10:32 04/06/19 11:02 04/06/19 11:02 04/06/19 11:02 - Laboratory Result Diagrams: 04/06/19 10:40 04/06/19 10:40 Laboratory results interpreted by me: 04/06/19 04/06/19 10:40 10:40 RDW 15.3 H Sodium 145.1 H Chloride 108 H Carbon Dioxide 31 H Albumin 3.4 L Doctor's Discharge - Discharge Referrals: TYSON BOLTON MD [Primary Care Provider] - Follow up as needed
--- NOTE | 2019-04-06 11:48 | RADIOLOGY REPORT (SQ) ---
EXAM DESCRIPTION: CHEST SINGLE VIEW COMPLETED DATE/TIME: 04/06/2019 11:29 am REASON FOR STUDY: Shortness of breath, productive cough, hypoxia COMPARISON: 06/26/2018 EXAM PARAMETERS: NUMBER OF VIEWS: One view. TECHNIQUE: Single frontal radiographic view of the chest acquired. RADIATION DOSE: NA LIMITATIONS: Positioning. FINDINGS: LUNGS AND PLEURA: Streaky linear density in the left base most consistent scarring or atel ectasis. No effusions. MEDIASTINUM AND HILAR STRUCTURES: No masses. Contour normal. HEART AND VASCULAR STRUCTURES: Heart normal in size. Normal vasculature. BONES: No acute findings. HARDWARE: None in the chest. OTHER: No other significant finding. IMPRESSION: Left basilar atelectasis. TECHNICAL DOCUMENTATION: JOB ID: [id number] [employer]- All Rights Reserved Reading location - IP/workstation name: [email or web address]
[2019-04-06] MEDS ORDERED: CEPHALEXIN 500 MG CAPSULE PO ONE (12:21)
--- NOTE | 2019-04-06 12:29 | ER Document Report ---
ED General - General Chief Complaint: Shortness Of Breath Stated Complaint: CONGESTION Time Seen by Provider: 04/06/19 11:42 Primary Care Provider: TYSON BOLTON MD [Primary Care Provider] - Follow up as needed Notes: 43-year-old female who was sent via EMS from [facility] for nasal congestion and cough for the past 2 days with hypoxia at the longterm of 89 to 90% as well as redness and swelling of her left leg. Patient sustained a laceration to her left leg a few days ago and had sutures placed. Patient reports this is a surgery however she did not have a true surgery she only had a laceration repair. Admits sweats and diarrhea, denies true fevers, chills, nausea or vomiting or shortness of breath. Admits to history of DVT for which she states she takes a "Lovenox pill". TRAVEL OUTSIDE OF THE [place] IN LAST 30 DAYS: No - Related Data Allergies/Adverse Reactions: No Known Allergies Allergy (Verified 04/06/19 12:26) Past Medical History - General Information source: Patient - Social History Smoking Status: Current Every Day Smoker Frequency of alcohol use: None Drug Abuse: None Lives with: [facility] Family History: None Patient has suicidal ideation: No Patient has homicidal ideation: No - Past Medical History Cardiac Medical History: Reports: Hx DVT, Hx Hypertension Pulmonary Medical History: Reports: Hx Asthma Renal/ Medical History: Denies: Hx Peritoneal Dialysis GI Medical History: Reports: Hx Gastroesophageal Reflux Disease Psychiatric Medical History: Reports: Hx Depression Past Surgical History: Reports: Hx Appendectomy, Other - Left eye enucleation - Immunizations Immunizations up to date: Yes Hx Diphtheria, Pertussis, Tetanus Vaccination: Yes Review of Systems - Review of Systems Constitutional: See HPI, Diaphoresis EENT: See HPI Cardiovascular: Edema Respiratory: See HPI, Cough Gastrointestinal: See HPI, Diarrhea Musculoskeletal: See HPI Skin: See HPI -: Yes All other systems reviewed and negative Physical Exam - Vital signs Vitals: Temp Pulse Resp BP Pulse Ox 98.6 F 94 25 H 139/93 H 94 04/06/19 10:32 04/06/19 10:32 04/06/19 10:32 04/06/19 10:32 04/06/19 10:32 Interpretation: Normal - Notes Notes: GENERAL: Alert, interacts well. No acute distress. HEAD: Normocephalic, atraumatic EYES: Right pupil normal, left eye absent. ENT: Oral mucosa moist, tongue midline. Nares patent, no nasal septal hematoma, TMs intact. NECK: Full range of motion, supple, trachea midline. LUNGS: Crackles at the bases, rhonchi in the upper lobes, wet cough, no respiratory distress. Oxygen removed and patient maintains at 94% on room air. HEART: Regular rate and rhythm, no murmurs, gallops, rubs. ABDOMEN: Soft, nontender, nondistended, bowel sounds present in all 4 quadrants. EXTREMITIES: Moves all 4 extremities spontaneously but has some weakness of the left arm due to a stroke, 3+ pitting edema left leg, well repaired flap shaped laceration noted to the lateral aspect of the left leg at approximately the mid shaft of the tibia, no bone exposed, erythema surrounding out from it, radial and dorsalis pedis pulses 2/4 bilaterally. No cyanosis. NEUROLOGICAL: Alert and oriented x3, normal speech. PSYCH: Normal mood, normal affect. SKIN: Warm, Dry Course - Re-evaluation Re-evalutation: 04/06/19 16:27 CBC unremarkable, coags normal, venous blood gas unremarkable, CMP grossly unremarkable, cardiac enzymes negative, proBNP normal, chest x-ray shows left basilar atelectasis, left leg Doppler does not show any DVT. There are signs of cellulitis surrounding the laceration. Patient will be treated with Augmentin 04/06/19 16:32 Discharge back to [facility]. - Vital Signs Vital signs: Temp Pulse Resp BP Pulse Ox 98.6 F 94 25 H 143/90 H 90 L 04/06/19 10:32 04/06/19 10:32 04/06/19 13:01 04/06/19 13:01 04/06/19 13:01 - Laboratory Result Diagrams: 04/06/19 10:40 04/06/19 10:40 Laboratory results interpreted by me: 04/06/19 04/06/19 04/06/19 10:40 10:40 10:40 RDW 15.3 H Sodium 145.1 H Chloride 108 H Carbon Dioxide 31 H Creatine Kinase 29 L Albumin 3.4 L Urine Protein Urine Ketones 04/06/19 15:35 RDW Sodium Chloride Carbon Dioxide Creatine Kinase Albumin Urine Protein 30 H Urine Ketones 20 H Discharge - Discharge Clinical Impression: Left leg cellulitis, Left basilar atelectasis Condition: Stable Disposition: HOME-ASSISTED LIVING Additional Instructions: Cellulitis You have an infection of your skin and underlying soft tissues called cellulitis. This is due to bacteria, which can enter through any break in the skin, or even through an irritated hair follicle. Untreated, cellulitis will usually worsen. Antibiotics are required. Usually, warm packs or warm soaks, and elevation of the infected area are recommended. You should start getting better within 24 to 36 hours. Most infections respond quickly to the right medication. Follow-up care is important, however, to check for abscess (boil) formation, unsuspected foreign body, or resistant infection. If you develop fever, chills, or if the area of infection is becoming rapidly more swollen or painful, call the doctor at once. Atelectasis Your symptoms are due to partial collapse of the lung, called atelectasis. When lung air sacs aren't filled properly with air, they can collapse. This is common after surgery. It may occur whenever breathing is weak or painful. To correct the collapse, we need to get your lung air sacs to open. Do breathing exercises for the next two days. Every 15 minutes while awake, rapidly suck in a full breath and hold it a few seconds. Sometimes we'll prescribe a machine to measure your progress. Call or return if there's increasing shortness of breath, fever or chills, increasing chest pain, productive cough, or coughing of blood. Prescriptions: Amox Tr/Potassium Clavulanate [Augmentin 875-125 Tablet] 1 tab PO BID 7 Days tablet Referrals: TYSON BOLTON MD [Primary Care Provider] - Follow up as needed
[2019-04-06 12:58] LABS: NT PRO BNP 78 pg/mL (<125)
[2019-04-06 12:59] LABS: CREATINE KINASE MB < 0.22 ng/mL (<4.55); TROPONIN I < 0.012 ng/mL
--- NOTE | 2019-04-06 15:30 | RADIOLOGY REPORT (SQ) ---
EXAM DESCRIPTION: VENOUS UNILATERAL LOWER COMPLETED DATE/TIME: 04/06/2019 3:19 pm REASON FOR STUDY: left leg swelling COMPARISON: 06/27/2018 TECHNIQUE: Dynamic and static armendariz scale and color images acquired of the left leg venous system. Se lected spectral images acquired with additional compression and augmentation maneuvers. The contralat eral common femoral vein and saphenofemoral junction were also imaged. Images stored on PACS. LIMITATIONS: Lower leg edema. FINDINGS: COMMON FEMORAL: Normal phasicity, compression and augmentation. No visualized echogenic ma terial on armendariz scale. No defects on color images. FEMORAL: Normal compression and augmentation. No visualized echogenic material on armendariz scale. No defe cts on color images. POPLITEAL: Normal compression, augmentation. No visualized echogenic material on armendariz scale. No defec ts on color images. CALF VESSELS: Poorly visualized due to soft tissue edema. GSV and SSV: Normal compression, augmentation. No visualized echogenic material on armendariz scale. No def ects on color images. ANY DEEP VENOUS INSUFFICIENCY: Not evaluated. ANY EVIDENCE OF POPLITEAL CYST: No. OTHER: Soft tissue edema of the lower leg. CONTRALATERAL COMMON FEMORAL VEIN AND SAPHENOFEMORAL JUNCTION: Normal phasicity, compression and augmentation. No visualized echogenic material on armendariz scale. No de fects on color images. IMPRESSION: Evaluation of the calf veins is limited by a soft tissue edema of the left lower leg. W ithin this limitation, no evidence of deep venous thrombosis in the left lower extremity. Previously seen thrombus in the common femoral and superficial femoral veins is resolved. TECHNICAL DOCUMENTATION: JOB ID: [id number] [employer]- All Rights Reserved Reading location - IP/workstation name: [email or web address]
[2019-04-06 16:13] LABS: APPEARANCE,URINE CLEAR; BILIRUBIN,URINE NEGATIVE (NEGATIVE); COLOR,URINE YELLOW; GLUCOSE, URINE NEGATIVE (NEGATIVE); KETONES,URINE 20 mg/dL (NEGATIVE); LEUKOCYTE ESTERASE,URINE NEGATIVE (NEGATIVE); NITRITE,URINE NEGATIVE (NEGATIVE); PROTEIN,URINE 30 mg/dL (NEGATIVE); URINE SPECIFIC GRAVITY 1.021; UROBILINOGEN,URINE NEGATIVE mg/dL (<2.0)
[2019-04-06 17:29] VITALS: BP 139/87
== END 2019-04-06 18:30 | disposition home health service (06) ==
LOC: ER 10:23
DX: L03.116 Cellulitis of left lower limb (principal); J98.11 Atelectasis; R06.02 Shortness of breath; R09.81 Nasal congestion; R05 Cough; R09.02 Hypoxemia; R61 Generalized hyperhidrosis; R19.7 Diarrhea, unspecified; F17.200 Nicotine dependence, unspecified, uncomplicated; I10 Essential (primary) hypertension; J45.909 Unspecified asthma, uncomplicated
CPT/HCPCS: 36415; 87040; 87086; 82553; 82550; 85025; 85610; 80053; 81001; 84484; 82803; 83605; 83880; 93971; 71045; J7620; 94640; 99285

== ENCOUNTER → 2019-05-20 | Outpatient (CLI) | payer MEDICAID | LOC: SP 14:19 | PROVIDERS: ATTEND Nurse Practitioner Family | DX: I87.312 Chronic venous hypertension (idiopathic) with ulcer of left lower extremity (principal); L97.222 Non-pressure chronic ulcer of left calf with fat layer exposed | CPT/HCPCS: 93922; 93925 ==

== ENCOUNTER → 2019-06-09 | Outpatient (CLI) | payer MEDICAID ==
[2019-06-09 11:38] LABS: ABSOLUTE BASOPHILS # (AUTO) 0.1 10^3/uL (0.0-0.2); ABSOLUTE EOSINOPHILS # (AUTO) 0.2 10^3/uL (0.0-0.6); ABSOLUTE LYMPHOCYTES (AUTO) 0.9 10^3/uL (0.5-4.7); ABSOLUTE MONOCYTES (AUTO) 0.4 10^3/uL (0.1-1.4); ABSOLUTE NEUT (AUTO) 5.1 10^3/uL (1.7-8.2); BASOPHILS % (AUTO) 1.1 % (0-2); EOSINOPHILS % (AUTO) 2.8 % (0-6); HEMATOCRIT 41.4 % (36.0-47.0); HEMOGLOBIN 13.6 g/dL (12.0-15.5); LYMPHOCYTES % (AUTO) 13.3 % (13-45); MEAN CORPUSCULAR HEMOGLOBIN 29.9 pg (27.0-33.4); MEAN CORPUSCULAR HGB CONC 32.9 g/dL (32.0-36.0); MEAN CORPUSCULAR VOLUME 91 fl (80-97); MONOCYTES % (AUTO) 6.7 % (3-13); PLATELET COUNT 258 10^3/uL (150-450); RED BLOOD COUNT 4.56 10^6/uL (3.72-5.28); RED CELL DISTRIBUTION WIDTH 15.3 % (11.5-14.0); SEGMENTED NEUTROPHILS % (AUTO) 76.1 % (42-78); TOTAL CELLS COUNTED % (AUTO) 100 %; WHITE BLOOD COUNT 6.7 10^3/uL (4.0-10.5)
[2019-06-09 12:11] LABS: ALBUMIN 3.7 g/dL (3.5-5.0); ALKALINE PHOSPHATASE 83 U/L (38-126); ANION GAP 8 (5-19); ASPARTATE AMINO TRANSFERASE 14 U/L (14-36); BILIRUBIN,DIRECT 0.1 mg/dL (0.0-0.4); BILIRUBIN,TOTAL 0.3 mg/dL (0.2-1.3); BLOOD UREA NITROGEN 12 mg/dL (7-20); C-REACTIVE PROTEIN 15.4 mg/L (<10.0); CALCIUM 9.2 mg/dL (8.4-10.2); CARBON DIOXIDE 32 mmol/L (22-30); CHLORIDE 107 mmol/L (98-107); GLUCOSE 81 mg/dL (75-110); POTASSIUM 3.9 mmol/L (3.6-5.0); TOTAL PROTEIN 7.8 g/dL (6.3-8.2)
[2019-06-09 12:18] LABS: ERYTHROCYTE SEDIMENTATION RATE 43 mm/hr (0-20)
--- NOTE | 2019-06-09 13:27 | RADIOLOGY REPORT (SQ) ---
EXAM DESCRIPTION: TIBIA FIBULA LEFT COMPLETED DATE/TIME: 06/09/2019 11:53 am REASON FOR STUDY: NON-PRESSURE CHRONIC ULCER OF LEFT CALF W FAT LAYER EXPOSED L97.222 NON-PRESSURE CHRONIC ULCER OF LEFT CALF W FAT LAYER I87.312 CHRONIC VENOUS HYPERTENSION W ULCER OF L LOW EXTREM COMPARISON: 03/22/2019 NUMBER OF VIEWS: Two views. TECHNIQUE: Two radiographic images acquired of the left tibia and fibula to include the knee and ank le in at least one projection. LIMITATIONS: None. FINDINGS: MINERALIZATION: Decreased. BONES: No acute fracture or dislocation. No worrisome bone lesions. Degenerative changes about the ankle. No osseous erosion or sclerosis to suggest osteomyelitis. SOFT TISSUES: Soft tissue swelling and subcutaneous edema. Scattered vascular and dermal calcificati ons. OTHER: No other significant finding. IMPRESSION: Lower extremity soft tissue swelling and subcutaneous edema. No evidence of acute bony abnormality. No definitive findings of osteomyelitis. TECHNICAL DOCUMENTATION: JOB ID: [id number] [employer]- All Rights Reserved Reading location - IP/workstation name: [email or web address]
== END ==
LOC: WC 11:01
PROVIDERS: ATTEND Nurse Practitioner Family
DX: I87.312 Chronic venous hypertension (idiopathic) with ulcer of left lower extremity (principal); L97.222 Non-pressure chronic ulcer of left calf with fat layer exposed
CPT/HCPCS: 36415; 80053; 85025; 85652; 86140